=== PATIENT | female | born 1965 | race Caucasian/White ===

== ENCOUNTER 2016-11-23 11:48 | Day surgery (SDC) | payer OTHER ==
[~2016-11-23] VITALS: Ht 170.2 cm; Wt 153.1 kg
[~2016-11-23 11:48] MED LIST: BUPR150T8 PO; CARB200T PO; DULA1.5P; FURO20TA4 PO; GABA-336 PO; INSU3INS3; IOHEXOL 300 MG/ML 50ml INJECTION ONE; LEVO25TA9 PO; LIDOCAINE 1% (10mg/ml) 2ml SDV INJ ONE; LISI10TA7 PO; METF10002 PO; METO-277 PO; NORMAL SALINE 1,000 ML IV ONE; OMEP40CA52 PO
--- OUTSIDE RECORDS SUMMARY | 2016-11-23 11:54 | XMS REPORT | Continuity of Care Document ---
Author Author Chelsey Barbosa Address Unknown Phone Unavailable Care Team Providers Care [place]cherette Name Role Phone [employer] Unavailable Unavailable Problems Problem Status Onset Date Classification Date Reported Comments Source Discharge Diagnosis: Diabetes 06/18/2016 Diagnosis 2015 [facility] Discharge Diagnosis: Hypertension 06/18/2016 Diagnosis [facility] Discharge Diagnosis: Morbid obesity with BMI of 45.0-49.9, adult 06/18/2016 Diagnosis 06/19/2016 [facility] Discharge Diagnosis: Anemia 06/18/2016 Diagnosis 2015 [facility] Discharge Diagnosis: URIEL on CPAP 06/18/2016 Diagnosis 07/2016 [facility] Discharge Diagnosis: Seizure disorder due to Zinc Poisoning 06/18/2016 Diagnosis 06/19/2016 [facility] Discharge Diagnosis: Injury of right ankle and foot 06/18/2016 Diagnosis 06/19/2016 [facility] Discharge Diagnosis: Pain in joint involving right ankle and foot 06/18/2016 Diagnosis 06/19/2016 [facility] Discharge Diagnosis: Pap smear of cervix with ASCUS, cannot exclude HGSIL 06/17/2016 Diagnosis 06/18/2016 [facility] Essential hypertension (disorder) 05/13/2016 Diagnosis [facility] Diabetes mellitus type 2 (disorder) 05/13/2016 Diagnosis 05/14/2016 [facility] Morbid obesity (disorder) Diagnosis 05/14/2016 [facility] Epilepsy (disorder) 2015 Diagnosis 05/14/2016 [facility] Fatigue (finding) 2015 Diagnosis 05/14/2016 [facility] Acute laryngitis (disorder) 04/14/2016 Diagnosis 2015 [facility] Acute pharyngitis (disorder) 04/14/2016 Diagnosis 2015 [facility] Acute sinusitis (disorder) 04/14/2016 Diagnosis 2015 [facility] Cough (finding) 04/14/2016 Diagnosis 04/15/2016 [facility] Well woman monitoring status (finding) 03/23/2016 Diagnosis 03/24/2016 [facility] Malignant tumor of vagina (disorder) 03/23/2016 Diagnosis 03/24/2016 [facility] Breast neoplasm screening status (finding) 03/23/2016 Diagnosis 03/24/2016 [facility] Vitamin D deficiency (disorder) 02/25/2016 Diagnosis [facility] Hypothyroidism (disorder) Diagnosis 02/26/2016 [facility] Obesity (disorder) 2015 Diagnosis 02/26/2016 [facility] Chronic ulcer of foot (disorder) 02/16/2016 Diagnosis 07/2016 [facility] Discharge Diagnosis: Diabetic foot ulcers 12/29/2015 Diagnosis 12/30/2015 [facility] Discharge Diagnosis: Non-pressure chronic ulcer of left heel and midfoot with fat layer exposed 12/29/2015 Diagnosis 12/30/2015 [facility] Discharge Diagnosis: Non-pressure chronic ulcer of other part of left foot with fat layer exposed 2015 Diagnosis 12/30/2015 [facility] Discharge Diagnosis: Xerosis of skin 12/29/2015 Diagnosis 12/30/2015 [facility] Discharge Diagnosis: Vitamin D deficiency 12/26/2015 Diagnosis 12/27/2015 [facility] Discharge Diagnosis: Hypermenorrhea 12/26/2015 Diagnosis 12/27/2015 [facility] Discharge Diagnosis: Hypoglycemia episodes 12/22/2015 Diagnosis 12/23/2015 [facility] Discharge Diagnosis: Non-pressure chronic ulcer of left ankle with fat layer exposed 12/22/2015 Diagnosis 12/23/2015 [facility] Discharge Diagnosis: Non-pressure chronic ulcer of right heel and midfoot with fat layer exposed 12/09/2015 Diagnosis 12/26/2015 [facility] Discharge Diagnosis: Hypothyroidism 11/24/2015 Diagnosis 12/23/2015 [facility] Discharge Diagnosis: Pressure sore, on both feet 11/24/2015 Diagnosis 12/23/2015 [facility] Discharge Diagnosis: Neuropathy 11/24/2015 Diagnosis [facility] Discharge Diagnosis: Obesity 11/24/2015 Diagnosis 2015 [facility] Discharge Diagnosis: Hypertriglyceridemia 11/24/2015 Diagnosis 12/23/2015 [facility] Discharge Diagnosis: Pre-ulcerative calluses 11/24/2015 Diagnosis 12/23/2015 [facility] Discharge Diagnosis: Open wound of foot, both 11/24/2015 Diagnosis 12/23/2015 [facility] Discharge Diagnosis: Apnea, sleep 11/24/2015 Diagnosis [facility] Diabetes mellitus (disorder) Active Problem 06/19/2016 [facility] Diabetic foot ulcer (disorder) Active Problem 06/19/2016 [facility], [facility] Hypertensive disorder, systemic arterial (disorder) Active Problem 06/19/2016 [facility], [facility] Hypothyroidism (disorder) Active Problem 06/19/2016 [facility], [facility] Menorrhagia (finding) Active Problem 06/19/2016 [facility], [facility] Morbid obesity (disorder) Active Problem 06/19/2016 [facility], [facility] Neuropathy (disorder) Active Problem 06/19/2016 [facility], [facility] Obstructive sleep apnea syndrome (disorder) Active Problem 06/19/2016 [facility], [facility] Seizure disorder (disorder) Active Problem 06/19/2016 [facility], [facility] Vitamin D deficiency (disorder) Active Problem 2015 [facility], [facility] Fatigue (finding) Active Problem 06/19/2016 [facility] Discharge Diagnosis: Chronic ulcer of left foot Diagnosis 12/26/2015 [facility] Medications Medication Details Route Status Patient Instructions Ordering Provider Order Date Source levothyroxine 25 mcg (0.025 mg) oral tablet </br>1 Tab, Q24H, PO, 30 Tab, 6 Number of Refills, 6, Route to Pharmacy Electronically, [facility], [id number], TAB Active [facility] Lancets </br>Lancets, See Instructions, 100 EA, Used to test blood glucose QID, 6 Number of Refills, 6, Route to Pharmacy Electronically, [facility], Instructions Replace Required Details, [id number] Active [facility] ferrous sulfate 325 mg (65 mg elemental iron) oral tablet </br>1 Tab, BID, PO, 60 Tab, 0 Number of Refills, 0, Route to Pharmacy Electronically, [facility], [id number] Active [facility] Vitamin D2 50,000 intl units oral capsule </br>1 Cap, 2x per Wk, PO, 8 Cap, 2 Number of Refills, 2, Route to Pharmacy Electronically, [facility], [id number] Active [facility] Lantus Claireostar Pen </br>SQ, Maintenance, 11/24/15 14:35:43 CDT, 0 Number of Refills Active [facility] Humalog KwikPen </br>20 units, QPM, SQ, 0 Number of Refills Active [facility] aAccu check strips </br>aAccu check strips, See Instructions, 100 EA, Used to check blood glucose QID, 6 Number of Refills, 6, Route to Pharmacy Electronically, [facility] , Instructions Replace Required Details, [id number] Active [facility] Carbamazepine 200 MG Oral Tablet </br>1 Tab, TID, PO, 90 Tab, 3 Number of Refills, 3, Route to Pharmacy Electronically, [facility], [id number], TAB Active [facility] Regranex </br>1.25 in, Q24H, TOP, Maintenance, 02/25/16 13:36:55 CDT, 0 Number of Refills Active [facility] COLLAGENASE 0.25 UNT/MG Topical Ointment [Santyl] </br>1 Apply, Q24H, TOP, Maintenance, 12/22/15 10:40:59 CDT, 0 Number of Refills Active [facility] Metoprolol Tartrate 100 MG Oral Tablet </br>1 Tab, BID, PO, 60 Tab, 0 Number of Refills, TAB Active [facility] metformin 1000 mg oral tablet </br>1 Tab, BID, PO, 60 Tab, with meals, 6 Number of Refills, 6, Route to Pharmacy Electronically, [facility], [id number] , TAB Active [facility] lisinopril 10 mg oral tablet </br>1 Tab, daily, PO, 30 Tab, 6 Number of Refills, 6, Route to Pharmacy Electronically, [facility], [id number], TAB Active [facility] 3 ML Insulin Glargine 100 UNT/ML Prefilled Syringe [Lantus] </br>40 unit, AT BEDTIME, SQ, 10 mL, 3 Number of Refills, 3, Route to Pharmacy Electronically, [facility], [id number], CLAIRE Active [facility] 200 ACTUAT Albuterol 0.09 MG/ACTUAT Metered Dose Inhaler [ProAir HFA] </br>2 Puff(s), QID, INH, 1 EA, Maintenance, 04/14/16 16:22:56 CDT, 2 Number of Refills, 2, Route to Pharmacy Electronically, [facility], [id number] Active [facility] Levofloxacin 500 MG Oral Tablet [Levaquin] </br>1 Tab, Q24H, PO, 7 Day(s), 7 Tab, 04/21/16, 0 Number of Refills, 0, Route to Pharmacy Electronically, [facility], [id number] Inactive [facility] 24 HR Metoprolol Tartrate 50 MG Extended Release Tablet </br>1 Tab, Q24H, PO, 30 Tab, 3 Number of Refills, 3, Route to Pharmacy Electronically, [facility], [id number] Active [facility] Mupirocin 20 MG/ML Topical Cream </br>1 Apply, BID, TOP, 30 gm, 12/26/15, Acute, Apply a thin film to sores, 15:53:39 CDT, 1 Number of Refills, 1, Print Requisition, CRM
</br> Special Instructions: Apply a thin film to sores Inactive [facility] 0.5 ML dulaglutide 1.5 MG/ML Prefilled Syringe [Trulicity] </br>0.75 mg, qWeek, SQ, 4 EA, 1 Number of Refills, 1, Route to Pharmacy Electronically, [facility], [id number] Active [facility] 0.5 ML dulaglutide 3 MG/ML Prefilled Syringe [Trulicity] </br>1.5 mg, qWeek, SQ, 4 Amp, 6 Number of Refills, 6, Route to Pharmacy Electronically, [facility], [id number] Active [facility] Acetaminophen 325 MG / Hydrocodone Bitartrate 5 MG Oral Tablet [Lortab] </br>1 Tab, TID, PO, 20 Tab, 07/19/16, Acute, 06/18/16 12:11:03 DIRECTOR ZONE, 0 Number of Refills, 0, Print Requisition Inactive [facility] Allergies, Adverse Reactions, Alerts Substance Category Reaction Severity Reaction type Status Date Reported Comments Source Erythromycin Assertion Severe Drug allergy Rash, swelling of mouth [facility] Penicillin G Assertion Severe Drug allergy [facility] Immunizations Immunization Date Given Site Status Last Updated Comments Source No data available for this section No data available for this section [facility] Results Order Name Results Value Reference Range Date Interpretation Comments Source Office/Clinic Notes Office/Clinic Notes [facility] at [address] [address] PATIENT: JUAN DIEGO SHI MR #: [id number] : 1965 DATE SEEN: 06/18/2016 Chief Complaint Juan Diego is here for a 1 month follow up. History of Present Illness Ms. Shi is here in our office for a followup on her diabetes and hypertension. She also has severe obesity and sleep apnea. The patient continues to use her CPAP and is also stating that her blood glucose has been running in normal range, between 70 to 110. She did not have any hypoglycemic episode. She is also complaining of some pain and discomfort in her right foot and ankle. The patient states that she had an episode of seizures about 2 days ago and in the process, injured her right ankle and foot. It has been painful and swollen since then. She did not have any other injury. Denies any other complaints. We have started her on Trulicity, that she has been taking 0.75 mg once a week. Tolerated the medication well. She denies any nausea or vomiting. Denies any reaction to that. She states that she has discontinued her Humalog altogether and has been using Lantus insulin only. Pain Assessment Cognitive Status: Independent, decisions consistent/reasonable Intensity: 10 Location: Lower leg Laterality: Right Review of Systems Per the past medical history and history of present illness. Other systems were reviewed and they were otherwise negative. Allergies erythromycin penicillin Current Medications aAccu check strips (Miscellaneous Medication), Used to check blood glucose QID carbamazepine 200 mg oral tablet (carbamazepine), 200 mg, Oral, 3 times a day ferrous sulfate 325 mg (65 mg elemental iron) oral tablet (ferrous sulfate), 325 mg, Oral, 2 times a day Humalog KwikPen (insulin lispro), 20 units, Subcutaneous, Every evening Lancets (Miscellaneous Medication), Used to test blood glucose QID Lantus Solostar Pen 100 units/mL subcutaneous solution (insulin glargine), 60 unit, Subcutaneous, At bedtime levothyroxine 25 mcg (0.025 mg) oral tablet (levothyroxine), 25 mcg, Oral, Every 24 hours lisinopril 10 mg oral tablet (lisinopril), 10 mg, Oral, Daily metformin 1000 mg oral tablet (metformin), 1,000 mg, Oral, 2 times a day metoprolol succinate 50 mg oral tablet, extended release (metoprolol), 50 mg, Oral, Every 24 hours ProAir HFA 90 mcg/inh inhalation aerosol with adapter (albuterol), 2 Puff(s), Inhalation, 4 times a day Trulicity Pen 0.75 mg/0.5 mL subcutaneous solution (dulaglutide), 0.75 mg, Subcutaneous, Every week Vitamin D2 50,000 intl units oral capsule (ergocalciferol), 50,000 IU, Oral, 2 times a week Problems and Past Medical History Active Diabetes Diabetic foot ulcers Fatigue Hypermenorrhea Hypertension Hypothyroidism Morbid obesity with BMI of 45.0-49.9, adult Neuropathy URIEL on CPAP Seizure disorder due to Zinc Poisoning Vitamin D deficiency Procedure History tonsilectomy at 08/08/2002. Tubal Ligation Social History Caffeine Use: Current Caffeine Type: Coffee, Soda, Tea, Energy beverages Caffeine Frequency: Daily Tobacco/Nicotine Usage: Current Smoking Status: Smokes daily Tobacco/Nicotine Type: Cigarettes Packs Per Day: 0.5 Number of Years-Tob Use: 20 Total Pack Years: 10 Recreational Drug Use: Denies Physical Examination TEMP BP Pulse RR MAP O2 Sat 36.6 132/108 78 20 116 97 Blood Pressure Location: Left arm Oxygen Therapy: Room air Weight Height BMI BSA 142.5 kg (314.16 lbs) 171 cm 48.7 kg/m2 2.6017 m2 Scale: Standing digital General: A well-developed, well-nourished female in no acute distress. Vital Signs: As recorded. HEENT: Normal conjunctivae and lids. External inspection of the ears and nose is normal. The oropharynx is within normal limits. Neck: No jugular venous distention, thyromegaly, or adenomegaly. Lungs: Clear to auscultation bilaterally. Cardiovascular: Regular rate and rhythm without murmur or gallop. Peripheral pulses are symmetrical. There is no dependent edema or pathologic varicosities. Chest: Normal. Abdomen: No masses, tenderness, or organomegaly. Her abdomen is severely obese. Lymphatic: No lymphadenopathy of neck, axillae, or groin. Musculoskeletal: No gross deformity, weakness, or tremor. The patient has some swelling and tenderness in her right ankle and proximal right foot. There is no skin break noted. No numbness or weakness. Skin: Benign. No suspicious lesions. Neurologic: Normal coordination and cortical function. Psychiatric: Normal mood and affect. Impression 1. Diabetes (E11.9). 2. Hypertension (I10). 3. URIEL on CPAP (G47.33). 4. Morbid obesity with BMI of 45.0-49.9, adult (E66.01). 5. Seizure disorder due to Zinc Poisoning (G40.909). 6. Anemia (D64.9). 7. Injury of right ankle and foot (S99.911A). 8. Pain in joint involving right ankle and foot (M25.571). Plan Medication changes this visit: New Lantus Solostar Pen 100 units/mL subcutaneous solution, 40 unit, Subcutaneous, AT BEDTIME, Quantity: 10, Refills: 3 Lortab 5/325 oral tablet, 1 Tab, Oral, TID, Quantity: 20, Refills: 0 Trulicity Pen 1.5 mg/0.5 mL subcutaneous solution, 1.5 mg, Subcutaneous, qWeek, Quantity: 4, Refills: 6 Refill carbamazepine 200 mg oral tablet, 200 mg, Oral, TID, Quantity: 90, Refills: 3 levothyroxine 25 mcg (0.025 mg) oral tablet, 25 mcg, Oral, Q24H, Quantity: 30, Refills: 6 lisinopril 10 mg oral tablet, 10 mg, Oral, daily, Quantity: 30, Refills: 6 Stopped Humalog KwikPen, 20 units, Subcutaneous, QPM, Refills: 0 Lantus Solostar Pen 100 units/mL subcutaneous solution, 60 unit, Subcutaneous, AT BEDTIME, Quantity: 18, Refills: 3 Trulicity Pen 0.75 mg/0.5 mL subcutaneous solution, 0.75 mg, Subcutaneous, qWeek , Quantity: 4, Refills: 1 Vitamin D2 50,000 intl units oral capsule, 50,000 IU, Oral, 2x per Wk, Quantity : 8, Refills: 2 ferrous sulfate 325 mg (65 mg elemental iron) oral tablet, 325 mg, Oral, BID, Quantity: 60, Refills: 0 Orders this visit: Follow Up 6 Weeks -Request DX Ankle Right 3 View complete- Request DX Foot Right 2 View Ap and Lat- Request Future Orders: CBC with Diff - 07/02/16 08:00 Carbamazapine Level - 06/25/16 08:00 HgbA1C - 07/02/16 08:00 In regard to her diabetes, which is better controlled, we did increase her Trulicity to 1.5 mg a week. She was advised to decrease her Lantus insulin to 20 units daily. Continue metformin as before. She was also advised to follow a more strict diet and try to lose weight on a low-calorie diet and increased physical activity. Regarding her hypertension, which is under adequate control. She was advised to continue current medication. Regarding her sleep apnea, she will continue her CPAP as before. In regard to her seizure, the patient has been on carbamazepine 200 mg t.i.d. We did order a carbamazepine level to be checked and we will adjust the dose if need to. Regarding her anemia, I did order a CBC to be checked before next visit. Regarding her injury to her right ankle and foot, I did order an x-ray of the right foot and right ankle to be done. We will make further recommendation when the report is available. She was given pain medication to take as needed for that. TR: GRANT JORGE#: [id number] [Electronically Signed on 06.23.2016 11:23 AM]
Katelyn Kyle MD
</br> 06/18/2016 [Electronically Signed on 06.23.2016 11:23 AM] Katelyn Kyle MD [facility] Office/Clinic Notes Office/Clinic Notes [facility] at [place] [address] [address] [place] [id number] PATIENT: JUAN DIEGO SHI MR #: [id number] : 1965 DATE SEEN: 06/17/2016 Chief Complaint Patient is here for a colposcopy procedure. History of Present Illness Patient is a 50-year-old female who I have seen today for colposcopy procedure. She had a Pap smear that was ASCUS, cannot exclude high grade. She states that she has been getting regular Pap smears. Allergies erythromycin penicillin Current Medications aAccu check strips (Miscellaneous Medication), Used to check blood glucose QID carbamazepine 200 mg oral tablet (carbamazepine), 200 mg, Oral, 3 times a day ferrous sulfate 325 mg (65 mg elemental iron) oral tablet (ferrous sulfate), 325 mg, Oral, 2 times a day Humalog KwikPen (insulin lispro), 20 units, Subcutaneous, Every evening Lancets (Miscellaneous Medication), Used to test blood glucose QID Lantus Solostar Pen 100 units/mL subcutaneous solution (insulin glargine), 60 unit, Subcutaneous, At bedtime levothyroxine 25 mcg (0.025 mg) oral tablet (levothyroxine), 25 mcg, Oral, Every 24 hours lisinopril 10 mg oral tablet (lisinopril), 10 mg, Oral, Daily metformin 1000 mg oral tablet (metformin), 1,000 mg, Oral, 2 times a day metoprolol succinate 50 mg oral tablet, extended release (metoprolol), 50 mg, Oral, Every 24 hours ProAir HFA 90 mcg/inh inhalation aerosol with adapter (albuterol), 2 Puff(s), Inhalation, 4 times a day Trulicity Pen 0.75 mg/0.5 mL subcutaneous solution (dulaglutide), 0.75 mg, Subcutaneous, Every week Vitamin D2 50,000 intl units oral capsule (ergocalciferol), 50,000 IU, Oral, 2 times a week Problems and Past Medical History Active Diabetes Diabetic foot ulcers Fatigue Hypermenorrhea Hypertension Hypothyroidism Morbid obesity with BMI of 45.0-49.9, adult Neuropathy URIEL on CPAP Seizure disorder due to Zinc Poisoning Vitamin D deficiency Procedure History tonsilectomy at 08/08/2002. Tubal Ligation Physical Examination TEMP BP Pulse RR MAP O2 Sat 36.8 132/84 87 20 100 Blood Pressure Location: Left arm Weight Height BMI BSA 140.2 kg (309.09 lbs) 171 cm 47.9 kg/m2 2.5806 m2 General: Well-developed, well-nourished female in no apparent distress. Psych: Alert and awake. Mood is good. Genitourinary: External genitalia appear normal for a female this age. Urethra and bladder visibly normal. No abnormal vaginal discharge. Cervix does not appear normal, very difficult to see. Cannot see the complete cervix as it is high in the vaginal vault. Even with a large Graves speculum, difficult to visualize. It looks like there was possibly a lesion on the anterior lip of the cervix. An attempt was made to complete colposcopy, but again, it was fairly inadequate. Biopsy of this area on the cervix was taken x2. Impression 1. Pap smear of cervix with ASCUS, cannot exclude HGSIL (R87.611). Plan Orders this visit: Colposcopy of Cervix w/ Endocervical Curettage -Clinic Urine Test-Clinic Will see what her biopsy results are. Then may need to either do re-colposcopy in the OR or possibly LEEP or, if it is cancer, referral to [facility]. TR: [id number] JORGE#: [id number] [Electronically Signed on 06.22.2016 09:07 PM]
Johnny Ramos DO
</br> 06/17/2016 [Electronically Signed on 06.22.2016 09:07 PM] Johnny Ramos DO [facility] Procedure Reports Procedure Reports Patient: JUAN DIEGO SHI Age: 50 years Sex: Female : 1965 Associated Diagnoses: None Author: Johnny Ramos DO Procedure Urine test Negative. Performed by Johnny Ramos DO. Informed consent Signed by patient. Risks, benefits and alternatives discussed. I discussed the procedure and risks of the procedure, including but not limited to pain, bleeding, infection, injury to soft tissue such as uterus and cervix need for further procedure, the patient was given the opportunity to have questions and concerns answered best of my ability and was agreeable to proceed with the procedure. Colposcopy procedure Indication: Atypical Squamous Cell-can not exclude high-grade dysplasia. Preparation and technique: placed in lithotomy position, vaginal speculum inserted, cervix inspected, cervix swabbed with acetic acid solution, colposcopy was carried out of the cervix and the upper portion of the vagina acetowhite changes and other vascular changes or or lack thereof were noted, please see the diagram, exam was difficult even with longer speculum, could not visualize the cervix entirely as it was high in the vaginal vault, but could see an area on the anterior lip of the cervix that could represent a cervical lesion - biopsy x 2 taken across this area, squamocolumnar junction fully visible, no lesion(s) observed, cervical biopsy taken, ECC performed biopsy taken, hemostasis achieved with Monsel's solution. Procedure tolerated: well. Complications: none. . pathology: Ectocervical biopy x2 of cervical lesion? and ECC. Inadequate visualization of the complete cervix, very difficult to visualize in the office even with large speculum. [Electronically Signed on 06.17.2016 12:16 PM]
Johnny Ramos, DO
</br> 06/17/2016 [Electronically Signed on 06.17.2016 12:16 PM] Johnny Ramos, [facility] Surgical Pathology Report Surgical Pathology Report [facility] [address] [place] [address] NAME: JUAN DIEGO SHI ADMIT 06/17/2016 DATE: DISCHARGE DATE: 06/17/2016 ENC: [id number] ORDER PHYS: Johnny Ramos DO : 1965AGE: 51 years SEX:Female ATTEND Johnny Ramos DO PHYS: LOCATION: [facility] Pathology Reports ACCESSION: COLLECTED DATE/TIME: RECEIVED DATE/TIME: PATHOLOGIST: [id number] 06/17/2016 10:00 DIRECTOR ZONE 06/18/2016 09:39 DIRECTOR ZONE Seth Gomez MD Surgical Pathology Report - Auth (Verified) Clinical Information Clinical History: ASCUS cannot exclude high grade Specimen/Tissue: A Cervical biopsy; Cervix 12:00 B Endocervix, Curettings/Biopsy; ECC Diagnosis A: Uterus, cervix at 12:00, biopsy: - AT LEAST HIGH GRADE SQUAMOUS INTRAEPITHELIAL LESION (ANA III). - See comment. B: Endocervical curettings: - HIGH GRADE SQUAMOUS INTRAEPITHELIAL LESION (ANA III). COMMENT: The cervical biopsy demonstrates extensive involvement by a high grade squamous dysplastic lesion (severe dysplasia/CIS) which in some areas demonstrates an exophytic morphology. Foci are concerning for invasion. Discussed with NIKOS Segovia, on 06/21/16. Seth Gomez(Electronic signature) Verified:06.21.16 15:19 DJS /RJS Gross Description A: The specimen is received in formalin labeled with the patient 's name and "CX bx 12:00 ". The specimen consists of multiple irregular shape domingo soft tissue aggregating to 1.0 x 1.0 x 0.2 cm. Completely submitted as is in cassette A1. B: The specimen is received in formalin labeled with the patient 's name and "ECC ". The specimen consists of multiple irregular shape yij-kxe-epimx soft tissue aggregating to 1.5 x 1.0 x 0.2 cm. Completely submitted as is in cassette B1. [facility]/VN Professional and technical services performed by [facility] d/b/a [employer] at [address] [address]. /VN 06.18.2016 11:12 NAME: JUAN DIEGO SHI [facility] [id number] ID: ENC: [id number] ROOM: 06/17/2016 [employer] CHEM12 eGFR () >60 mL/min >=60 2015 N Estimated GFR for an calculated using MDRD study equation. Result Verified by Discern Expert.
[employer] CHEM12 Albumin Level 3.5 gm/ dL 3.4 - 5.0 05/13/2016 N [employer] A1C eAverage Glu 123 05/13/2016 NA Estimated average glucose has a linear relationship with Hgb A1c and is intended to simplify the discussion of glycemic control with patients.
[facility] Office/Clinic Notes Office/Clinic Notes [facility] at [facility] [address] [place] [address] [id number] PATIENT: JUAN DIEGO SHI MR #: [id number] : 1965 DATE SEEN: 05/13/2016 Chief Complaint Juan Diego is here for a 3 month follow up. History of Present Illness Ms. Shi is here in our office for followup on multiple medical problems, including diabetes, hypertension, obstructive sleep apnea. She also had some foot ulcers on previous visit, but those now have healed. She has no complaint in that regard. The patient states that she is feeling tired a lot. She has sleep apnea, but has been using her CPAP regularly. She has diabetes and has been using insulin as directed. She denies any hypoglycemic episode. She did not have a recent hemoglobin A1c checked. The patient, otherwise, has no new complaints. Pain Assessment Cognitive Status: Independent, decisions consistent/reasonable Intensity: 9 Location: Other: Pain in all joints. Review of Systems Per the past medical history and history of present illness. Other systems were reviewed and they were otherwise negative. Allergies erythromycin penicillin Current Medications aAccu check strips (Miscellaneous Medication), Used to check blood glucose QID carbamazepine 200 mg oral tablet (carbamazepine), 200 mg, Oral, 3 times a day ferrous sulfate 325 mg (65 mg elemental iron) oral tablet (ferrous sulfate), 325 mg, Oral, 2 times a day Humalog KwikPen (insulin lispro), 20 units, Subcutaneous, Every evening Lancets (Miscellaneous Medication), Used to test blood glucose QID Lantus Solostar Pen 100 units/mL subcutaneous solution (insulin glargine), 60 unit, Subcutaneous, At bedtime levothyroxine 25 mcg (0.025 mg) oral tablet (levothyroxine), 25 mcg, Oral, Every 24 hours lisinopril 10 mg oral tablet (lisinopril), 10 mg, Oral, Daily metformin 1000 mg oral tablet (metformin), 1,000 mg, Oral, 2 times a day metoprolol tartrate 100 mg oral tablet (metoprolol), 100 mg, Oral, 2 times a day ProAir HFA 90 mcg/inh inhalation aerosol with adapter (albuterol), 2 Puff(s), Inhalation, 4 times a day Regranex (becaplermin topical), 1.25 in, Topical, Every 24 hours Santyl 250 units/g topical ointment (collagenase topical), 1 Apply, Topical, Every 24 hours Vitamin D2 50,000 intl units oral capsule (ergocalciferol), 50,000 IU, Oral, 2 times a week Problems and Past Medical History Active Diabetes Diabetic foot ulcers Fatigue Hypermenorrhea Hypertension Hypothyroidism Morbid obesity with BMI of 45.0-49.9, adult Neuropathy URIEL on CPAP Seizure disorder due to Zinc Poisoning Vitamin D deficiency Procedure History tonsillectomy at 08/08/2002. Tubal Ligation Social History Caffeine Use: Current Caffeine Type: Coffee, Soda, Tea, Energy beverages Caffeine Frequency: Daily Tobacco/Nicotine Usage: Current Smoking Status: Smokes daily Tobacco/Nicotine Type: Cigarettes Packs Per Day: 0.5 Number of Years-Tob Use: 20 Total Pack Years: 10 Recreational Drug Use: Denies Physical Examination TEMP BP Pulse RR MAP O2 Sat 36.5 138/92 71 18 107.33 94 Blood Pressure Location: Left arm Oxygen Therapy: Room air Weight Height BMI BSA 141.7 kg (312.40 lbs) 171 cm 48.5 kg/m2 2.5944 m2 Scale: Standing digital General: A well-developed, well-nourished female in no acute distress. Vital Signs: As recorded. HEENT: Normal conjunctivae and lids. External inspection of the ears and nose is normal. The oropharynx is within normal limits. Neck: No jugular venous distention, thyromegaly, or adenomegaly. Lungs: Clear to auscultation bilaterally. Cardiovascular: Regular rate and rhythm without murmur or gallop. Peripheral pulses are symmetrical. There is no dependent edema or pathologic varicosities. Chest: Normal. Abdomen: No masses, tenderness, or organomegaly. Her abdomen is obese. Lymphatic: No lymphadenopathy of neck, axillae, or groin. Musculoskeletal: No gross deformity, weakness, or tremor. Skin: Benign. No suspicious lesions. Neurologic: Normal coordination and cortical function. Psychiatric: Normal mood and affect. Data Review Her laboratory studies were reviewed. Impression 1. Diabetes (E11.9). 2. Hypertension (I10). 3. Morbid obesity with BMI of 45.0-49.9, adult (E66.01). 4. Seizure disorder due to Zinc Poisoning (G40.909). 5. Fatigue (R53.83). Plan Medication changes this visit: New metoprolol succinate 50 mg oral tablet, extended release, 50 mg, Oral, Q24H, Quantity: 30, Refills: 3 Refill metformin 1000 mg oral tablet, 1,000 mg, Oral, BID, Quantity: 60, Refills: 6 Stopped Regranex, 1.25 in, Topical, Q24H, Refills: 0 Santyl 250 units/g topical ointment, 1 Apply, Topical, Q24H, Refills: 0 metoprolol tartrate 100 mg oral tablet, 100 mg, Oral, BID, Quantity: 60, Refills : 6 Orders this visit: CHEM12 ([facility]) HgbA1C Follow Up 1 Month -Request In regard to her diabetes, the status of her diabetes control is not known. We are going to check a hemoglobin A1c today. The patient has severe obesity with a BMI of 48. We had a discussion with her regarding weight loss and dieting. She is having trouble with diet because of hypoglycemic episodes on insulin. We did discuss other medication. It was decided to check an A1c today. If her hemoglobin A1c is less than 7, we are going to decrease her Lantus and start her on Trulicity to help her lose weight and have a better diabetes control. So , we will make that decision after her A1c report is available. In regard to seizure disorder, the patient is taking medication as directed and did not have any recent episode. Regarding her fatigue, I think this could be related to beta-rosanne. We are going to decrease her metoprolol to 50 mg twice daily. TR: GRANT JORGE#: [id number] [Electronically Signed on 05.14.2016 11:55 AM]
Katelyn Kyle MD
</br> 05/13/2016 [Electronically Signed on 05.14.2016 11:55 AM] Katelyn Kyle MD [facility] Office/Clinic Notes Office/Clinic Notes [facility] at [address] [address] PATIENT: JUAN DIEGO SHI MR #: [id number] : 1965 DATE SEEN: 04/14/2016 Chief Complaint Juan Diego is here for headache, sinus drainage and coughing, and low grade fever. History of Present Illness Juan Diego is here today with complaints of a head cold. She reports, about last Tuesday, she began having headaches, sinus drainage, cough, a low-grade fever. She has had clear to yellow drainage coming out of her nose. The drainage is down her throat causing hoarseness and a sore throat, causing her to cough, and this is not allowing her to sleep at night. She has also noted a headache, sinus pressure, and pain. She reports she has had a tender spot inside her nose and has noted a stye on her left lower eyelid. She reports feeling pretty miserable. Juan Diego is here today for further evaluation and treatment of her symptoms, and requesting a steroid shot due to her harsh, deep cough, and reports a history of pneumonia. She does not want her symptoms to get worse. Juan Diego also reports that her medical insurance only paid for 1 box of Lantus Solostar Pens. She is going to run out and will need a refill of her Lantus. Juan Diego is also asking for a ProAir MDI for her symptoms today. Review of Systems Usual Hours of Sleep: 4 Per past medical history, history of present illness, other systems were reviewed and they were otherwise negative. Allergies erythromycin penicillin Current Medications aAccu check strips (Miscellaneous Medication), Used to check blood glucose QID carbamazepine 200 mg oral tablet (carbamazepine), 200 mg, Oral, 3 times a day ferrous sulfate 325 mg (65 mg elemental iron) oral tablet (ferrous sulfate), 325 mg, Oral, 2 times a day Humalog KwikPen (insulin lispro), 20 units, Subcutaneous, Every evening Lancets (Miscellaneous Medication), Used to test blood glucose QID Lantus Solostar Pen 100 units/mL subcutaneous solution (insulin glargine), 60 unit, Subcutaneous, At bedtime levothyroxine 25 mcg (0.025 mg) oral tablet (levothyroxine), 25 mcg, Oral, Every 24 hours lisinopril 10 mg oral tablet (lisinopril), 10 mg, Oral, Daily metformin 1000 mg oral tablet (metformin), 1,000 mg, Oral, 2 times a day metoprolol tartrate 100 mg oral tablet (metoprolol), 100 mg, Oral, 2 times a day Regranex (becaplermin topical), 1.25 in, Topical, Every 24 hours Santyl 250 units/g topical ointment (collagenase topical), 1 Apply, Topical, Every 24 hours Vitamin D2 50,000 intl units oral capsule (ergocalciferol), 50,000 IU, Oral, 2 times a week Problems and Past Medical History Active Diabetes Diabetic foot ulcers Hypermenorrhea Hypertension Hypothyroidism Morbid obesity with BMI of 45.0-49.9, adult Neuropathy URIEL on CPAP Seizure disorder due to Zinc Poisoning Vitamin D deficiency Procedure History tonsillectomy at 08/08/2002. Tubal Ligation Social History Caffeine Use: Current Caffeine Type: Coffee, Soda, Tea, Energy beverages Caffeine Frequency: Daily Tobacco/Nicotine Usage: Current Smoking Status: Smokes daily Tobacco/Nicotine Type: Cigarettes Packs Per Day: 0.5 Number of Years-Tob Use: 20 Total Pack Years: 10 Recreational Drug Use: Denies Physical Examination TEMP BP Pulse RR MAP O2 Sat 36.6 133/87 92 20 102.33 95 Blood Pressure Location: Left arm Oxygen Therapy: Room air Weight Height BMI BSA 135.4 kg (298.51 lbs) 171 cm 46.3 kg/m2 2.536 m2 General: She is alert, oriented, appears fatigued, but in no acute distress. Ears: Tympanic membranes are dull bilaterally. Canals are clear. Eyes: PERRLA. EOMI. No icterus. No injection. An erythemic stye noted on the inner aspect of the left lower eyelid with no drainage noted from the eyes. Sinus: Tenderness of maxillary sinuses noted Mouth: Moist mucous membranes. Moderate inflammation of the posterior pharynx and a cloudy postnasal drainage noted. Neck: Soft and supple. Enlarged, nontender tonsillar nodes bilaterally. Heart: Regular rate and rhythm without murmur. Lungs: Diminished breath sounds with faint, diffuse expiratory wheezing noted. A harsh, deep bronchial cough noted, but no respiratory distress present. Extremities: No clubbing, cyanosis, or edema. Pulses 2+ and equal. SKin: pink, warm, and dry Impression 1. Acute laryngitis (J04.0). 2. Acute pharyngitis (J02.9). 3. Acute sinusitis (J01.90). 4. Cough (R05). 5. Diabetes Plan Medication changes this visit: New Levaquin 500 mg oral tablet, 500 mg, Oral, Q24H, 7 Day(s), Quantity: 7, Refills : 0 ProAir HFA 90 mcg/inh inhalation aerosol with adapter, 2 Puff(s), Inhalation, QID, Quantity: 1, Refills: 2 Orders this visit: dexamethasone, 8 mg, Intramuscular, X 1 DOSE 1. Regarding acute laryngitis, acute pharyngitis, acute sinusitis, Juan Diego will begin Levaquin 500 mg 1 tab daily until gone and Decadron 8 mg IM was administered today. 2. Regarding Cough, Juan Diego will begin ProAir MDI 2 puffs 4 times a day as needed. 3. Regarding diabetes, I will refill the Lantus insulin today. Juan Diego was instructed to call her insurance company regarding her coverage of the Lantus Solostar Pen. 4. Juan Diego was instructed to follow up with any acute changes, no improvement, or any questions or concerns. She verbalized understanding and was in agreement with the plan of care. TR: GRANT JORGE#: [id number] [Electronically Signed on 04.15.2016 01:46 PM]
Sabina Spence APRN
</br> 04/14/2016 [Electronically Signed on 04.15.2016 01:46 PM] Sabina Spence APRN [facility] PAP(Thin Prep) - Clinic Result - PAP See Comment 2015 ABN THINPREP TIS PAP REFLEX HPV mRNA E6/E7
Lab:
CLINICAL INFORMATION: Routine exam
LMP: 03/21/16
prev. Pap: INFORMATION NOT PROVIDED
prev. Bx: INFORMATION NOT PROVIDED
SOURCE: Vagina, Cervix, Endocervix

STATEMENT OF ADEQUACY: Satisfactory for evaluation.
Endocervical/transformation zone component
present.< br>GENERAL CATEGORIZATION: EPITHELIAL CELL ABNORMALITY
INTERPRETATION/RESULT : Atypical Squamous Cells, cannot exclude High
Grade Squamous Intraepithelial Lesion (ASC-H)
COMMENT: This Pap test has been evaluated with computer
assisted technology.
SUPERVISOR TILE AND MOTTLE: CATY NG(ASCP)
CT screening location: [facility]
[address] [place]
[address]
PATHOLOGIST: Ranjith Flaherty M.D., Board Certified in
Anatomic Pathology and Cytopathology.

(electronic signature)
For questions contact Anatomic Pathology Client Services at [phone]
PERFORMING SITE:

[facility]
[id number]
[place] [address]
Consulting Sales Executive: PER THACKER MD, CLIA : [id number]
[facility] Office/Clinic Notes Office/Clinic Notes [facility] at [address] [address] PATIENT: JUAN DIEGO SHI MR #: [id number] : 1965 DATE SEEN: 03/23/2016 Chief Complaint Juan Diego is here for Pap. History of Present Illness Juan Diego is here for a well-woman exam. She reports her last Pap was about 2 years ago and was normal. She does report having an abnormal Pap about 26 years ago. control is a tubal ligation. Her last menstrual period was March 21, 2016. She reports her menstrual cycle tends to be a flow heavy the first 3-4 days, is very painful with lots of cramps and increased blood clots. She does tend to bleed through her clothes. Her periods last about 6-7 days. She is a 4, para 3, miscarriage 1. She denies female issues or concerns at this time and does plan to schedule her mammogram at [facility] in the near future. Review of Systems Usual Hours of Sleep: 4 Denies fever, chills, or unexpected weight changes. Denies chest pains or palpitations. Denies shortness of breath or cough. Denies abdominal pain, nausea , vomiting, diarrhea, or constipation. Denies dysuria or frequency. Admits to heavy, crampy menstrual periods. Allergies erythromycin penicillin Current Medications Accu check strips (Miscellaneous Medication), Used to check blood glucose QID carbamazepine 200 mg oral tablet (carbamazepine), 200 mg, Oral, 3 times a day ferrous sulfate 325 mg (65 mg elemental iron) oral tablet (ferrous sulfate), 325 mg, Oral, 2 times a day Humalog KwikPen (insulin lispro), 20 units, Subcutaneous, Every evening Lancets (Miscellaneous Medication), Used to test blood glucose QID Lantus Solostar Pen (insulin glargine), , Subcutaneous levothyroxine 25 mcg (0.025 mg) oral tablet (levothyroxine), 25 mcg, Oral, Every 24 hours lisinopril 10 mg oral tablet (lisinopril), 10 mg, Oral, Daily metformin 1000 mg oral tablet (metformin), 1,000 mg, Oral, 2 times a day metoprolol tartrate 100 mg oral tablet (metoprolol), 100 mg, Oral, 2 times a day Regranex (becaplermin topical), 1.25 in, Topical, Every 24 hours Santyl 250 units/g topical ointment (collagenase topical), 1 Apply, Topical, Every 24 hours Vitamin D2 50,000 intl units oral capsule (ergocalciferol), 50,000 IU, Oral, 2 times a week Problems and Past Medical History Active Diabetes Diabetic foot ulcers Hypermenorrhea Hypertension Hypothyroidism Morbid obesity with BMI of 45.0-49.9, adult Neuropathy URIEL on CPAP Seizure disorder due to Zinc Poisoning Vitamin D deficiency Procedure History tonsillectomy at 08/08/2002. Tubal Ligation Social History Caffeine Use: Current Caffeine Type: Coffee, Soda, Tea, Energy beverages Caffeine Frequency: Daily Tobacco/Nicotine Usage: Current Smoking Status: Smokes daily Tobacco/Nicotine Type: Cigarettes Packs Per Day: 0.5 Number of Years-Tob Use: 20 Total Pack Years: 10 Recreational Drug Use: Denies Physical Examination TEMP BP Pulse RR MAP O2 Sat 36.4 176/87 70 18 116.67 95 Blood Pressure Location: Left arm Oxygen Therapy: Room air Weight Height BMI BSA 141.4 kg (311.73 lbs) 171 cm 48.4 kg/m2 2.5916 m2 Scale: Standing digital General: Alert, oriented, and in no acute distress. Neck: Soft and supple. No lymphadenopathy. Heart: Regular rate and rhythm without murmur. Lungs: Clear to auscultation bilaterally in all lung dean. Good respiratory effort. Abdomen: No guarding or rebound. Nontender and nondistended. Positive normoactive bowel sounds. No mass or hepatosplenomegaly. No bruits heard. Truncal obesity noted. Extremities: No clubbing or cyanosis. Trace of edema bilaterally. Pulses 2+ and equal. Skin: Warm and dry with good turgor. Neurologic: Cranial nerves 2-12 intact. Psychiatric: Mood and affect appropriate. Breasts: Normally sized breasts bilaterally. No nodules palpable. No nipple discharge. No tenderness. No skin dimpling. External Genitalia: Without any lesions. Urethra: No lesions. Scant cloudy discharge noted. Vagina: [place] and moist. Cervix: No cervical motion tenderness, abnormal discharge, or mass. Uterus: Normal size. Mobile and nontender. Impression 1. Encounter for well woman exam (Z01.419). 2. Vaginal Pap smear (Z12.72). 3. Encounter for screening breast examination (Z12.39). Plan Orders this visit: PAP Reflex HPV Regarding encounter for well-woman exam to include vaginal Pap smear, Pap sent to Pathology. Ms. Sih was informed we would contact her once the results are available. Regarding encounter for screening breast exam, Ms. Shi plans to schedule her mammogram at [facility] in the near future. Ms. Shi was encouraged to schedule a routine follow up appointment with her primary care provider, Dr. Katelyn Kyle, in 1 month. She was instructed to continue all medications as prescribed. TR: [id number] JORGE#: [id number] [Electronically Signed on 03.24.2016 08:30 PM]
Sabina Spence APRN
</br> 03/23/2016 [Electronically Signed on 03.24.2016 08:30 PM] Sabina Spence APRN [facility] A1C Hgb A1c 6.0 % - <=5.6 02/26/2016 HI Hgb A1c values
<5.7% Normal
5.7- 6.4% Increased risk for diabetes (pre-diabetes)
>6.5% Diabetes
[facility] -Auto Diff Eos 2 % 02/26/2016 NA [facility] CBC with Diff Hgb 12.6 gm/dL 12.0 - 16.0 02/26/2016 N [facility] Manual Differential Morphology Aniso 1 - <=0 2015 HI [facility] FREET4 Free T4 1.06 ng/dL 0.58 - 1.64 02/26/2016 N [facility] TSH TSH 2.170 uIU/mL 0.354 - 5.720 02/26/2016 N [facility] Office/Clinic Notes Office/Clinic Notes [facility] at [address] [address] PATIENT: JUAN DIEGO SHI MR #: [id number] : 1965 DATE SEEN: 02/25/2016 Chief Complaint Juan Diego is here for a recheck. History of Present Illness A 50-year-old patient presents to the clinic for followup. She has been seen by this physician back on November 24, 2015. She had been seen by Dr. Katelyn Kyle on December 26, 2015. Last saw Dr. Beth Domingo on February 16, 2016, for debridement and treatment of her ulcerative foot. Her foot is doing much better and it continues to gradually improve. Her blood sugar is doing less well than her foot. She was supposed to have lab drawn on February 21, 2016. Since it did not happen it will happen today with TSH, free T4, vitamin D, hemoglobin A1c, and a CBC with differential. She is still on her medications as noted. Medication reconciliation was completed. Review of Systems Usual Hours of Sleep: 4 Pertinent negative for the following system(s): Constitutional, HEENT, Respiratory, Cardiovascular, GI, , LINING MACHINE OPERATOR, Integumentary, Musculoskeletal, Neurological, Hematologic, Endocrine, Psychiatric Allergies erythromycin penicillin Current Medications aAccu check strips (Miscellaneous Medication), Used to check blood glucose QID carbamazepine 200 mg oral tablet (carbamazepine), 200 mg, Oral, 3 times a day ferrous sulfate 325 mg (65 mg elemental iron) oral tablet (ferrous sulfate), 325 mg, Oral, 2 times a day Humalog KwikPen (insulin lispro), 20 units, Subcutaneous, Every evening Lancets (Miscellaneous Medication), Used to test blood glucose QID Lantus Solostar Pen (insulin glargine), , Subcutaneous levothyroxine 25 mcg (0.025 mg) oral tablet (levothyroxine), 25 mcg, Oral, Every 24 hours lisinopril 10 mg oral tablet (lisinopril), 10 mg, Oral, Daily metformin 1000 mg oral tablet (metformin), 1,000 mg, Oral, 2 times a day metoprolol tartrate 100 mg oral tablet (metoprolol), 100 mg, Oral, 2 times a day Regranex (becaplermin topical), 1.25 in, Topical, Every 24 hours Santyl 250 units/g topical ointment (collagenase topical), 1 Apply, Topical, Every 24 hours Vitamin D2 50,000 intl units oral capsule (ergocalciferol), 50,000 IU, Oral, 2 times a week Problems and Past Medical History Active Diabetes Diabetic foot ulcers Hypermenorrhea Hypertension Hypothyroidism Morbid obesity with BMI of 45.0-49.9, adult Neuropathy URIEL on CPAP Seizure disorder due to Zinc Poisoning Vitamin D deficiency Procedure History tonsilectomy at 08/08/2002. Tubal Ligation Social History Caffeine Use: Current Caffeine Type: Coffee, Soda, Tea, Energy beverages Caffeine Frequency: Daily Tobacco/Nicotine Usage: Current Smoking Status: Smokes daily Tobacco/Nicotine Type: Cigarettes Packs Per Day: 0.5 Number of Years-Tob Use: 20 Total Pack Years: 10 Recreational Drug Use: Denies Physical Examination TEMP BP Pulse RR MAP O2 Sat 36.8 170/85 91 18 113.33 93 Blood Pressure Location: Left arm Oxygen Therapy: Room air Weight Height BMI BSA 142.6 kg (314.38 lbs) 171 cm 48.8 kg/m2 2.6026 m2 Scale: Standing digital HEENT: Unremarkable. Neck: Supple. Chest: Clear. Heart: Regular rhythm. Abdomen: Protuberant. Extremities: Grossly normal. [___] on the medial posterior of her left heel. Impression 1. Hypertension (I10). 2. Diabetes (E11.9). 3. Vitamin D3 deficiency (E55.9). 4. Hypothyroidism (E03.9). 5. Exogenous Obesity (E66.9). 6. Ulcerative foot. Plan Orders this visit: CBC with Diff Free T4 HgbA1C TSH (Thyroid Stim Hormone) Vitamin D Level TR: [id number] JORGE#: [id number] [Electronically Signed on 02.27.2016 04:53 AM]
Toro Copeland MD
</br> 02/25/2016 [Electronically Signed on 02.27.2016 04:53 AM] Toro Copeland MD [facility] Office/Clinic Notes Office/Clinic Notes [facility] [address] [address] RE: JUAN DIEGO SHI MR #: [id number] : 1965 DATE SEEN: 02/16/2016 Juan Diego is a pleasant [id number] type 2 diabetic, who is uncontrolled at this time, presents today following ulcerations to her left foot. The patient is no longer wearing surgical shoe because she has seizures and she feels that she is going to break her ankle when she is wearing that sandal. The patient is wearing just regular shoes and trying to keep pressure off the area. The patient to continue using moisturizer with ammonium lactate cream to her feet twice a day for treatment of chronic dry skin. The patient's feet does look a lot better. The patient is approved for EpiFix, and she says the ulcer seems to be doing better, so she does not want to get total contact cast done today. ALLERGIES: 1. ERYTHROMYCIN. 2. PENICILLIN. Vitals: Today, blood pressure 130/74, respiration 18, pulse 79, temperature 97.9 degrees. PHYSICAL EXAMINATION: Vascular examination: Dorsalis pedis and posterior tibial pulses are palpable bilaterally. Bilateral lower extremity capillary refilling time 1 seconds x10. Neurologic examination: Protective threshold is absent via [place]-Stella 5.07-g monofilament to bilateral feet. Deep tendon reflexes are within normal limits to bilateral lower extremities. Dermatologic examination: Turgor, texture and temperature of the skin are all within normal limits. The patient does have ulceration on dorsal aspect of the fifth digit, left foot that currently measures 7 x 6 x 3 mm in depth. This ulceration does extend down to subcutaneous tissue with no edema, no erythema, no probing to bone, mostly granular tissue, mild fibrinous base, it is very close to probing to bone, but no signs of infection at this time. The patient has a second ulceration on plantar aspect of the left heel that currently measures 6 x 3 x 2 mm in depth. This ulcer is a full thickness ulceration with no edema, no erythema, no probing to bone, mostly red beefy granular tissue, mild fibrinous base. Musculoskeletal examination: Muscle power is 5/5 bilateral lower extremities. No deficits noted. ASSESSMENT: 1. Full-thickness ulceration, left heel. 2. Subcutaneous depth ulceration, fifth digit, left foot. 3. Ppy-onjlpoa-thsifzcil diabetes with neuropathy, uncontrolled. Plan and procedure: Prior to the debridement, I explained to the patient, and to any person who has consented to the procedure on the patient's behalf, the nature, the purpose, benefits, risks and alternative treatments. I have further discussed possible consequences of the procedure, the principal risks involved and possible complications. PROCEDURE: 1. The ulceration on the left foot, fifth toe first anesthetized utilizing 2% topical lidocaine. Utilizing a 15 blade, all devitalized tissue was removed through subcutaneous tissue depth and post-debridement measurement measures 8 x 7 x 3 mm depth and a dressing consisting of Betadine dry sterile dressing was then applied. 2. The ulceration on the left heel was also anesthetized utilizing 2% topical lidocaine. Utilizing a 15 blade, all devitalized tissue removed through full- thickness depth and a dressing consisting EpiFix was now applied in standard technique. It was held in place with Steri-Strips. Dressing consisting of nonadherent veil, wound gel and dry sterile dressing was then applied. PLAN: 1. The patient to keep the dressing clean, dry, and intact for the next week to the ulceration, left heel and continue to clean the fifth digit, left foot on a daily basis with antibacterial soap and water and applying Regranex with wet-to-dry dressing on a daily basis. 2. The patient was advised to try to keep pressure off her foot as much as she can. We did offer her Cam walker boot. The patient defers and we strongly recommended total contact casting to try to get this ulcer to heal up a little faster. The patient defers also. I will see her back in 1 week to see how she is doing after applying EpiFix number 1. The patient to continue using ammonium lactate cream to feet twice a day to prevent recurrence of dry skin. Dictated By: FLAVIA DOMINGO DPM DICTATED BY: Flavia Domingo. TR: [id number] DR: 02/16/2016 16:07:34 DE: 02/17/2016 02:56:15 JOB#: [id number] [Electronically Signed on 02.17.2016 09:06 AM]
Domingo, Lung K , DPM
</br> 02/16/2016 [Electronically Signed on 02.17.2016 09:06 AM] Domingo, Lung K, DPM [facility] Office/Clinic Notes Office/Clinic Notes Wound Care [address] [id number] RE: JUAN DIEGO SHI MR #: [id number] : 1965 DATE SEEN: 02-05-2016 Jua nDiego is a pleasant frj-ezvuteo-bthaokume type 2 diabetic, who is uncontrolled at this time, presents today following ulceration to her left foot. The patient overall is doing very well. The patient had to have the cast removed because it cracked on her, but otherwise she is doing very well. The patient did forget to bring the walking part of the EZ total contact cast today. The patient currently denies any fever, chills, nausea, vomiting. The patient has been using Santyl, dry sterile dressing daily. ALLERGIES: 1. ERYTHROMYCIN. 2. PENICILLIN. PHYSICAL EXAMINATION: Vitals today, blood pressure 140/89, respiratory rate 16, pulse 64, temperature 98.6 degrees. Vascular examination: Dorsalis pedis and posterior tibial pulses are palpable bilaterally. Bilateral lower extremity capillary refilling time 1 seconds x10. Neurologic examination: Protective threshold is absent via [place]-Stella 5.07-g monofilament to bilateral feet. Deep tendon reflexes are within normal limits to bilateral lower extremities. Dermatologic examination: Turgor, texture and temperature of the skin are all within normal limits. The patient does have ulceration, dorsal aspect of the fifth digit, left foot that currently measures 2 x 2 x 2 mm in depth. This ulceration is a full thickness ulceration with no edema, erythema, no probing to bone, mostly granular tissue, mild fibrinous base. The patient does have a second ulceration, plantar aspect of the left heel that currently measures 10 x 6 x 2 mm in depth. This ulcer is a full thickness ulceration with no edema, erythema, no probing to bone, mostly red beefy granular tissue, mild fibrinous base. Musculoskeletal examination: Muscle power is 5/5 bilateral lower extremities. No deficits noted. ASSESSMENT: 1. Full-thickness ulceration, left heel. 2. Full-thickness ulceration, fifth toe, left foot. 3. Vnt-qrpgraq-sgswipset diabetes with neuropathy, uncontrolled. Plan and procedure: Prior to the debridement, I explained to the patient, and to any person who has consented to the procedure on the patient's behalf, the nature, the purpose, benefits, risks and alternative treatments. I have further discussed possible consequences of the procedure, the principal risks involved and possible complications. The 2 ulcerations on the left foot was first anesthetized utilizing 2% topical lidocaine. Utilizing a 15 blade, all devitalized tissue removed through full- thickness depth with post-debridement measurements on the fifth digit that measures 3 x 3 x 2 mm in depth and on the left heel, measures 11 x 7 x 2 mm in depth and a dressing consisting of Santyl and dry sterile dressing was then applied. PLAN: 1. The patient to continue to clean both ulcers on a daily basis with antibacterial soap and water and apply Santyl and dry sterile dressing. The patient at this time will be prior authorized for Regranex gel. The patient is to start the Regranex gel once she gets in the mail. 2. The patient to continue to stay off her left foot and offload it with surgical shoe. In the meantime, I will see her. The patient at this time is approved for EpiFix at 100%, so when she comes back in 1 week, we are going to put a total contact cast on Epifix #1 at that time. The patient to continue to moisturize her feet on a daily basis with ammonium lactate cream to her feet twice a day. Dictated By: LUNG K DOMINGO, DPM DICTATED BY: Domingo Lung K. TR: [id number] DR: 02/05/2016 11:48:11 DE: 02/05/2016 12:22:30 JOB#: [id number] [Electronically Signed on 02.05.2016 01:48 PM]
Domingo, Lung K , DPM
</br> 02/05/2016 [Electronically Signed on 02.05.2016 01:48 PM] Domingo Lung K, DPM [facility] Office/Clinic Notes Office/Clinic Notes Wound Care [address] [address] RE: JUAN DIEGO SHI MR #: [id number] : 1965 DATE SEEN: 01/22/2016 Juan Diego is a pleasant jfz-rnnobxq-llvukyswq type 2 diabetic, which is uncontrolled at this time, presents today following up ulceration to her left foot. The patient in a total contact cast for the last 3 days, and she says overall she did really well, has not had any problems. Rates pain 0/10. ALLERGIES: 1. ERYTHROMYCIN. 2. PENICILLIN. PHYSICAL EXAMINATION: Vitals today: Blood pressure 123/82, respiration 18, pulse 75, and temperature 99.3 degrees. Vascular examination: Capillary refill x1 second. Neurologic examination: Protective threshold is absent. Dermatologic examination: Turgor, texture and temperature of the skin are all within normal limits. The patient has ulceration on the dorsal aspect of the fifth digit, left foot, that currently measures 3 x 7 x 2 mm in depth. This ulcer is a full- thickness ulceration with no edema, erythema, no probing to bone, all granular tissue, but very mild fibrinous base The patient has another ulceration on the plantar aspect of the left heel that currently measures 10 x 7 x 2 mm in depth. This ulcer is a full-thickness ulceration with no edema, erythema, no probing to bone, all granular tissue, with mild fibrinous base. ASSESSMENT: 1. Full-thickness ulceration, left heel. 2. Full-thickness ulceration, fifth digit, left foot. 3. Nlu-rffjcox-ohgxrnzyf diabetes mellitus with neuropathy, uncontrolled. PROCEDURE: Wound consent: Prior to the debridement, I explained to the patient , and to any person who has consented to the procedure on the patient's behalf, the nature, the purpose, benefits, risks and alternative treatments. I have further discussed possible consequences of the procedure, the principal risks involved and possible complications. The two ulcerations on the left foot were now redressed with Aquacel AG, dry sterile dressing, and an EZ total contact cast was now applied to the left lower extremity in standard technique. The patient tolerated application without any concerns. PLAN: 1. The patient will follow up one week from 02/02/2016, for cast check and wound evaluation. The patient was advised to continue to monitor for cast complications. If it occurs, the patient is going to the emergency room to have it removed and never to wait too long if there is a problem. Otherwise, I will see her in 1 week from Tuesday. [facility]. Dictated By: FLAVIA DOMINGO DPM DICTATED BY: Flavia Domingo TR: [id number] DR: 01/22/2016 12:18:11 DE: 01/22/2016 17:56:40 JOB#: [id number] [Electronically Signed on 01.23.2016 09:40 AM]
Flavia Domingo DPM
</br> 01/22/2016 [Electronically Signed on 01.23.2016 09:40 AM] Flavia Domingo K, DPM [facility] Office/Clinic Notes Office/Clinic Notes Office/Clinic Note-Physician Corrected copy Wound Care [address] [address] RE: JUAN DIEGO SHI MR #: [id number] : 1965 DATE SEEN: 01/19/2016 Juan Diego is a pleasant ssh-zuomxcl-fwkfzlibc type 2 diabetic, which is uncontrolled at this time, presented today following ulcerations to her left foot. The patient has been using Santyl with dry sterile dressing as directed and surgical shoe to bilateral feet for offloading. The patient has been using ammonium lactate cream to her feet twice a day for treatment of dry skin. The patient currently denies any fever, chills, nausea, or vomiting. ALLERGIES: 1. ERYTHROMYCIN. 2. PENICILLIN. PHYSICAL EXAMINATION: Vitals Today: Blood pressure 132/67, respiratory rate 16, pulse 82, and temperature 97.3 degrees. Vascular examination: Dorsalis pedis and posterior tibial pulses are palpable bilaterally. Bilateral lower extremity capillary refilling time 1 second x10. Neurologic examination: Protective threshold is absent via [place]-Stella 5.07-g monofilament to bilateral feet. Deep tendon reflexes are within normal limits to bilateral lower extremities. Dermatologic examination: Turgor, texture, and temperature of the skin are all within normal limits. The patient does have a full-thickness ulceration on the dorsal aspect of the fifth digit, left foot that currently measures 9 x 6 x 2 mm in depth. This ulcer is a full-thickness ulceration with no edema, erythema, or probing to bone, mostly granular tissue with a mild fibrinous base. The patient has another ulceration on the plantar aspect of left heel that currently measures 12 x 10 x 3 mm in depth. This ulceration does extend down to subcutaneous tissue with no edema, erythema, and no probing to bone, mostly granular tissue with a mild fibrinous base. Musculoskeletal examination: Muscle power is 5/5 bilateral lower extremities. No deficits noted. ASSESSMENT: 1. Subcutaneous depth ulceration, left heel. 2. Full-thickness ulceration, fifth digit, left foot. 3. Bni-tpjxusv-piwicgmkr diabetes mellitus with neuropathy, uncontrolled. Prior to the debridement, I explained to the patient, and to any person who has consented to the procedure on the patient's behalf, the nature, the purpose, benefits, risks and alternative treatments. I have further discussed possible consequences of the procedure, the principal risks involved and possible complications. PROCEDURE: 1. The ulceration on the fifth digit, left foot was first anesthetized utilizing 2% topical lidocaine. Utilizing a 15 blade, all devitalized tissue was removed through full-thickness depth with the post-debridement measurement currently measures 10 x 7 x 2 mm in depth, and a dressing consisting of Aquacel Ag and dry sterile dressing was then applied. 2. The ulceration of the left heel was also anesthetized utilizing 2% topical lidocaine. Utilizing a 15 blade, all devitalized tissue was removed through subcutaneous tissue depth with that post-debridement measurement that measures 13 x 11 x 3 mm in depth, and a dressing consisting of Aquacel Ag and dry sterile dressing was then applied. 3. An EZ total contact cast was now applied to the left lower extremity in standard technique. The patient tolerated application without any concerns. PLAN: 1. The patient to monitor and cast check, information dispensed. If she ever has any problem, the patient to give us a call us immediately or go to emergency room and have it removed. 2. The patient will follow up for cast check #1 on January 21 just to make sure if everything is going okay, and after that, will go a week at a time. 3. The patient to continue using ammonium lactate cream to her feet twice a day to address the dry skin, and I will see her back next to see how she is doing. PLAN: The patient, at this time, will also get prior authorized for EpiFix for possible application in the very near future. TR: [id number] DR: 01/19/2016 04:41:00 pm DE: 01/20/2016 04:18:55 am JOB#: [id number] Dictated By: LUNG K ARLETTE DOMINGO DICTATED BY: Flavia Domingo. TR: [id number] DR: 01/19/2016 16:41:00 DE: 01/20/2016 05:09:00 CR: 01/20/2016 10:30 [facility] [place] JOB#: [id number] [Electronically Signed on 01.20.2016 10:41 AM]
Flavia Domingo , DPM
</br> 01/19/2016 [Electronically Signed on 01.20.2016 10:41 AM] Flavia Domingo, DPM [facility] Office/Clinic Notes Office/Clinic Notes Wound Care [address] [address] RE: JUAN DIEGO SHI MR #: [id number] : 1965 DATE SEEN: 12/29/2015 Juan Diego is a pleasant evf-lrmvnqg-tupxvehck type 2 diabetic, which is uncontrolled at this time, presents today following up ulceration to her left foot. The patient has been using Santyl with dry sterile dressing as directed and using surgical shoe to bilateral feet for offloading. The patient is currently using ammonium lactate cream to feet as directed twice a day to both feet for treatment of severe dry skin. ALLERGIES: 1. ERYTHROMYCIN. 2. PENICILLIN. PHYSICAL EXAMINATION: Vitals Today: Blood pressure 199/93, respiratory rate 20, pulse 75, and temperature 97.3 degrees. Vascular examination: Dorsalis pedis and posterior tibial pulses are palpable bilaterally. Bilateral lower extremity capillary refilling time 1 second x10. Neurologic examination: Protective threshold is absent via [place]-Stella 5.07-g monofilament to bilateral feet. Deep tendon reflexes are within normal limits to bilateral lower extremities. Dermatologic examination: Turgor, texture, and temperature of the skin are all within normal limits. The patient does have ulceration on the plantar aspect of the left heel that currently measures 11 x 9 x 2 mm in depth. The ulceration is a full-thickness ulceration with no edema, erythema, no probing to bone, mostly granular tissue with a fibrinous base. No probing to bone. The patient has a second ulceration to the dorsal aspect of the fifth digit, left foot that currently measures 3 x 2 x 3 mm in depth and does extend down to subcutaneous tissue with no edema, erythema, no probing to bone, mostly granular tissue with a mild fibrinous base. No probing to bone. The patient continues to have plantar scaly skin and fissuring, bilateral feet. There is a worsening fissure, submetatarsal head #1 on the left foot, but nothing open at this time. Musculoskeletal examination: Muscle power is 5/5 bilateral lower extremities. No deficits noted. Prior to the debridement, I explained to the patient, and to any person who has consented to the procedure on the patient's behalf, the nature, the purpose, benefits, risks and alternative treatments. I have further discussed possible consequences of the procedure, the principal risks involved and possible complications. PROCEDURE: 1. The ulceration on the fifth digit, left foot was first anesthetized utilizing 2% topical lidocaine. Utilizing a 15 blade, all devitalized tissue was removed through subcutaneous tissue depth with post-debridement measurement currently measures 4 x 3 x 3 mm in depth and a dressing consisting of Santyl and wet-to-dry dressing was then applied. 2. The ulceration on the left heel was also anesthetized utilizing 2% topical lidocaine. Utilizing a 15 blade, all devitalized tissue was removed through full -thickness depth with a post-debridement measurement currently measures 12 x 10 x 2 mm in depth, and a dressing consisting of Santyl and wet-to-dry dressing was then applied. PLAN: 1. The patient at this time continue to clean the ulceration to bilateral feet on a daily basis with antibacterial soap and water and apply Santyl and wet-to- dry dressing on a daily basis. 2. The patient to continue wearing surgical shoe to both feet for off loading. 3. The patient to continue ammonia lactate cream to her feet twice a day for treatment of severe dry skin. I will see him back in 2 weeks for another wound evaluation. Dictated By: LUNG K CHAYO DPM DICTATED BY: Chayo Flavia Keller. TR: [id number] DR: 12/29/2015 16:24:22 DE: 12/30/2015 08:49:55 JOB#: [id number] [Electronically Signed on 12.30.2015 09:03 AM]
Flavia Domingo , DPM
</br> 12/29/2015 [Electronically Signed on 12.30.2015 09:03 AM] Flavia Domingo, DPM [facility]KA[facility]A Ferritin 17.3 ng/mL 3.0 - 105.0 12/26/2015 N [facility] IRON LEVEL Iron Level 31 mcg/ dL 35 - 150 12/26/2015 LOW [facility] Office/Clinic Notes Office/Clinic Notes [facility] at [address] [address] PATIENT: JUAN DIEGO SHI MR #: [id number] : 1965 DATE SEEN: 12/26/2015 Chief Complaint Juan Diego is here for a follow up per Sabina. Additional Information: [place] History of Present Illness Ms. Shi is a 50-year-old white female, a new patient in my office, with numerous medical problems. She had a history of diabetes for some time. She also has hypertension, severe obesity, obstructive sleep apnea on CPAP. She was also found to have severe vitamin D deficiency and anemia. She has multiple foot ulcers that has been followed by Podiatry. She was hospitalized in [place] for about a week. It looked like her diabetes had been diagnosed during hospitalization. The patient also states that she has a chronic seizure disorder that has been going on for about 10 years. She is claiming that she is having frequent seizures. In fact, she had 1 last night. These are not grand mal seizures, but some change in mental status. She was not able to explain it well. It looked like the patient had some extensive evaluation regarding this. She had seen Dr. Donna Sierra, the neurologist in [facility], and has been referred to their seizure clinic. She had an EEG done. She was told that she did not have seizure, she had bipolar disorder. However, [_David_], that she has been following with recently, has told her that her seizure was related to elevated zinc. She is claiming that she has a very high zinc level, although she has not been using any zinc supplement. The patient states that she has occasional low blood glucose, especially at night, since she has been started on insulin. She has no other new complaints. Review of Systems Usual Hours of Sleep: 4 Per the past medical history and history of present illness. Other systems were reviewed and they were otherwise negative. Allergies erythromycin penicillin Current Medications aAccu check strips (Miscellaneous Medication), Used to check blood glucose QID carbamazepine 200 mg oral tablet (carbamazepine), 200 mg, Oral, 3 times a day Humalog KwikPen (insulin lispro), , Subcutaneous Lancets (Miscellaneous Medication), Used to test blood glucose QID Lantus Solostar Pen (insulin glargine), , Subcutaneous levothyroxine 25 mcg (0.025 mg) oral tablet (levothyroxine), 25 mcg, Oral, Every 24 hours lisinopril 10 mg oral tablet (lisinopril), 10 mg, Oral, Daily metformin 1000 mg oral tablet (metformin), 1,000 mg, Oral, 2 times a day metoprolol tartrate 100 mg oral tablet (metoprolol), 100 mg, Oral, 2 times a day Santyl 250 units/g topical ointment (collagenase topical), 1 Apply, Topical, Every 24 hours Problems and Past Medical History Active Diabetes Diabetic foot ulcers Hypermenorrhea Hypertension Hypothyroidism Morbid obesity with BMI of 45.0-49.9, adult Neuropathy URIEL on CPAP Seizure disorder due to Zinc Poisoning Vitamin D deficiency Family History DM (diabetes mellitus) type I controlled with renal manifestation Mother Heart disease.. Mother Grandparent Procedure History tonsillectomy at 08/08/2002. Tubal Ligation Social History Caffeine Use: Current Caffeine Type: Coffee, Soda, Tea, Energy beverages Caffeine Frequency: Daily Tobacco/Nicotine Usage: Current Smoking Status: Smokes daily Tobacco/Nicotine Type: Cigarettes Packs Per Day: 0.5 Number of Years-Tob Use: 20 Total Pack Years: 10 Recreational Drug Use: Denies Physical Examination TEMP BP Pulse RR MAP O2 Sat 36.7 128/53 75 18 78 96 Blood Pressure Location: Left arm Oxygen Therapy: Room air Weight Height BMI BSA 145.63 kg (321.06 lbs) 171 cm 49.8 kg/m2 2.6301 m2 Scale: Standing digital General: A well-developed, well-nourished female in no acute distress. Vital Signs: As recorded. HEENT: Normal conjunctivae and lids. External inspection of the ears and nose is normal. The oropharynx is within normal limits. Neck: No jugular venous distention, thyromegaly, or adenomegaly. Lungs: Clear to auscultation bilaterally. Cardiovascular: Regular rate and rhythm without murmur or gallop. Peripheral pulses are symmetrical. She has 1+ edema on her legs. Chest: Normal. Abdomen: No masses, tenderness, or organomegaly. Her abdomen is severely obese. Lymphatic: No lymphadenopathy of neck, axillae, or groin. Musculoskeletal: No gross deformity, weakness, or tremor. Skin: She has 3 ulcers on her left foot. One on her heel, which is actually the largest one, but the are clean and they are having no sign of infection and healing well. She had an ulcer on her right foot that has actually healed. Neurologic: Normal coordination and cortical function. Psychiatric: Normal mood and affect. Data Review Her laboratory studies were reviewed. She has anemia and she also has some severe vitamin D deficiency. Impression 1. Diabetes (E11.9). 2. Hypertension (I10). 3. Morbid obesity with BMI of 45.0-49.9, adult (E66.01). 4. Anemia (D64.9). 5. Vitamin D deficiency (E55.9). 6. Hypermenorrhea (N92.0). 7. URIEL on CPAP (G47.33). 8. Diabetic foot ulcers (E11.621). Plan Medication changes this visit: New Vitamin D2 50,000 intl units oral capsule, 50,000 IU, Oral, 2x per Wk, Quantity : 8, Refills: 2 ferrous sulfate 325 mg (65 mg elemental iron) oral tablet, 325 mg, Oral, BID, Quantity: 60, Refills: 0 Orders this visit: Follow Up 1 Month -Request US Transvaginal Pelvic Sono - Request Future Orders: Fecal Occult Blood Screening -Clinic - 01/03/16 12:06 Fecal Occult Blood Screening -Clinic - 12/29/15 15:38 In regard to her diabetes, as mentioned, the patient has some episodes of hypoglycemia in the evening. We did decrease her Humalog, that she has been taking 28 units. We decreased it to 20 units before each meal, plus a sliding scale that she will add. In regard to her foot ulcers that are healing, the patient advised to continue to follow with the women's activities adviser. Regarding her hypertension, that is relatively well controlled, the patient was advised to continue current medication. We are going to check a CMP and I will make further recommendation when the report is available. Regarding her morbid obesity, the patient was advised to try to decrease her calorie intake. I think she might be a good candidate for Victoza or a similar medication to help her control her diabetes better and also lose weight, may consider this in the future. Meanwhile, she was advised to decrease her calorie intake and increase physical activity. Regarding her anemia, this is most probably related to hypermenorrhea. I did order a stool FIT test to be done. We also ordered a transvaginal pelvic ultrasound for further evaluation of her hypermenorrhea. Regarding her vitamin D deficiency, she was started on vitamin D supplement. In regard to her obstructive sleep apnea, she was advised to continue her CPAP. TR: GRANT JORGE#: [id number] [Electronically Signed on 12.30.2015 10:20 AM]
Katelyn Kyle MD
</br> 12/26/2015 [Electronically Signed on 12.30.2015 10:20 AM] Katelyn Kyle MD [facility] A1C Hgb A1c 8.1 % - <=5.6 12/26/2015 [place] Hgb A1c values
<5.7% Normal
5.7- 6.4% Increased risk for diabetes (pre-diabetes)
>6.5% Diabetes
[facility] -Auto Diff Abs Eos .21 x10^3/ uL .00 - .40 12/26/2015 N [facility] CBC with Diff NRBC% 0 /100 WBC - <=0 12/26/2015 N WBC count corrected for NRBCs present
[facility] Manual Differential Morphology Hypochrom 2 - <=0 2015 [place] [facility] P7 LDLC 81 60 - 99 12/26/2015 [facility] P7 HDL 40 mg/dL 40 - 60 12/26/2015 [facility] TSH TSH 6.000 uIU/mL 0.354 - 5.720 12/26/2015 [facility] VIT B12 Vit B12 Level 661 pg/ mL 180 - 914 12/26/2015 [facility] CARBM Carbamaz Level 5.4 mcg/ mL 4.0 - 12.0 12/26/2015 [facility] Office/Clinic Notes Office/Clinic Notes Patient: JUAN DIEGO SHI Age: 50 years Sex: Female : 1965 Associated Diagnoses: None Author: Sabina Spence APRN Chief Complaint Reason For Visit: Juan Diego is here for follow up after being in hospital, got out the 21 of November. Interval History Diabetes, Type 2 Mrs Shi returns to our clinic today to follow up after a recent hospitalization. She reports a history of Diabetes Type 2 and was taking Metformin from age 38 to age 44, but had stopped as she was controlling her blood sugar with diet. However, she was recently hospitalized due to severe infection and found to have an extremely elevated blood glucose and was placed back on the Metformin and also Insulin. Juan Diego states she was started on Lantus daily and Humalog daily with additional as per a sliding scale. She is here today to follow up regarding her Diabetic medications. Juan Diego has noted some low blood sugars and had called the Nurse Helpline and was instructed to schedule an appointment to discuss her blood sugars and insulin. She states her has been for good at keeping her on a Diabetic Diet, however, they are interested in Diabetic Diet counseling. Her other chronic medical issues include :Seizure Disorder from Zinc Poisoning, Diabetic Foot Ulcers-under the care of Wound Clinic at [facility], Hypertension, Hypothyroidism, Diabetic Neuropathy, and Obesity.. Review of Systems Constitutional: No fever, No chills, No sweats. Eye: Negative. Ear/Nose/Mouth/Throat: Negative. Respiratory: No shortness of breath. Cardiovascular: No chest pain. Gastrointestinal: Heartburn, No nausea, No vomiting, No diarrhea, No constipation. Genitourinary: No dysuria. Endocrine: Hot flashes, Hypoglycemia, excessive sweats with low blood sugar. Musculoskeletal: Feet are sore due to sores, these are being treated by Wound Clinic [facility]. Integumentary: Negative. Neurologic: Alert and oriented X4, Seizure, Juan Diego reports her seizure disorder is from zinc poisoning years ago. She reports the seizures are not a typical seizure. She reports they are small and are less frequent. Juan Diego states they will subside if she sits down and she does not lose consciousness, No dizziness , No headache. Psychiatric: Negative. A complete review of systems was negative except as noted above and in the history of present illness Health Status Allergies: Allergic Reactions (Selected) Severe Erythromycin- No reactions were documented. Penicillin- No reactions were documented. Current medications: (Selected) Prescriptions Prescribed Lancets: See Instructions, Used to test blood glucose QID, 100 EA, 6 Refill(s) aAccu check strips: See Instructions, Used to check blood glucose QID, 100 EA, 6 Refill(s) Documented Medications Documented Humalog KwikPen: SQ, 0 Refill(s) Lantus Solostar Pen: SQ, 0 Refill(s) Santyl 250 units/g topical ointment: 1 Apply, TOP, Q24H, 0 Refill(s) carbamazepine 200 mg oral tablet: 1 Tab, PO, TID, 0 Refill(s) levothyroxine 25 mcg (0.025 mg) oral tablet: 1 Tab, PO, Q24H, 0 Refill(s) lisinopril 10 mg oral tablet: 1 Tab, PO, daily, 90 Tab, 0 Refill(s) metformin 1000 mg oral tablet: 1 Tab, PO, BID, 60 Tab, 0 Refill(s) metoprolol tartrate 100 mg oral tablet: 1 Tab, PO, BID, 60 Tab, 0 Refill(s) Problem list: All Problems Diabetes / SNOMED CT 949583847 / Confirmed Neuropathy / SNOMED CT 4238240126 / Confirmed Hypertension / SNOMED CT 7807032736 / Confirmed Diabetic foot ulcers / SNOMED CT 7489835185 / Confirmed Morbid obesity with BMI of 45.0-49.9, adult / SNOMED CT 594237703 / Confirmed Hypothyroidism / SNOMED CT 85767074 / Confirmed Seizure disorder due to Zinc Poisoning / SNOMED CT 155955947 / Confirmed Histories Past Medical History: No active or resolved past medical history items have been selected or recorded. Family History: DM (diabetes mellitus) type I controlled with renal manifestation Mother Heart disease.. Mother Grandparent Procedure History: tonsilectomy on 08/08/2002 at 37 Years. Tubal Ligation. Social History Caffeine Use Caffeine Use: Current Caffeine Type: Coffee, Soda, Tea, Energy beverages Caffeine Frequency: Daily Tobacco/Nicotine Usage: Current Smoking Status: Smokes daily Tobacco/Nicotine Type: Cigarettes Packs Per Day: 0.5 Number of Years-Tob Use: 20 Total Pack Years: 10 Recreational Drug Use: Denies . Physical Examination VS/Measurements Vitals View 12/22/2015 10:37 CDT Height 171 cm Weight 145.9 kg Scale Standing digital BSA 2.6325 m2 Body Mass Index 49.9 kg/m2 Temperature Tympanic 36.6 DegC Peripheral Pulse Rate 65 bpm Respiratory Rate 18 br/min Systolic Blood Pressure 141 mmHg HI Diastolic Blood Pressure 80 mmHg Mean Arterial Pressure. 100.33 mmHg Blood Pressure Location Left arm Location-Pain 1 Head Intensity-Pain 5 Pain Symptoms Yes Oxygen Therapy Room air Oxygen Saturation 98 % General: Alert and oriented, No acute distress, Mrs Shi is a very pleasant lady here after a recent hospitalization to discuss her insulin medication.. Ambulation status: With steady gait. Appearance: Well nourished, Well developed. HENT: Normocephalic, Oral mucosa is moist. Neck: Supple, Non-tender, No carotid bruit, No jugular venous distention, No lymphadenopathy, No thyromegaly. Respiratory: Lungs are clear to auscultation, Respirations are non-labored, Breath sounds are equal, Symmetrical chest wall expansion. Cardiovascular: Normal rate, Regular rhythm, No murmur, No edema. Gastrointestinal: Soft, Non-tender, Normal bowel sounds, No organomegaly, abdomen is morbidly obese with BMI of 49.9 and appears distended. Musculoskeletal: Normal range of motion, Normal strength, Normal gait. Integumentary: Warm, Dry, [place]. Feet: Feet were examined with open sore on dorsal left ankle, scant serosangionous discharge noted. No signs of infection noted. Bandaid placed. Left lateral heel with diabetic foot ulcer approximately 2 cm in length, Santyl cream was applied with no tenderness, no redness, no drainage noted. A new sterile dressing placed and secured by Marco A. FROM noted Right heel with healing ulcer, no drainage, no redness, no tenderness. FROM noted. New bandage placed. . Neurologic: Alert, Oriented, No focal defects. Psychiatric: Cooperative, Appropriate mood & affect, Normal judgment, Non- suicidal. Mood and affect: Calm. Behavior: Relaxed, concerned with low blood sugar readings.. Review / Management Results review: Reviewed medication record from Hospital Discharge and Blood sugar log since discharge. Lowest blood sugar was 46 and this was noted after receiving Humalog 28 units plus 1 unit per the sliding scale. Juan Diego has rarely needed the sliding scale, but when used noted drops in blood sugar are evident on the log. The majority of the blood sugars are in normal range without the use of additional Humalog insulin. The highest blood sugar was 191.. Impression and Plan Diagnosis Diabetes (CUM79-II E11.9). Diabetic foot ulcers (KQW85-JL E11.621). Hypoglycemia episodes (ZNT04-QD E16.2). Hypertension (WXU12-BE I10). Hypothyroidism (QWS14-BA E03.9). Seizure disorder due to Zinc Poisoning (BOM62-GY G40.909). Orders Orders (Selected) Outpatient Orders Ordered Dietitian Consult -Request: Completed Follow Up 1 Week- Request: Office Visit Level 4 Est - [id number]: Prescriptions Prescribed levothyroxine 25 mcg (0.025 mg) oral tablet: 1 Tab, PO, Q24H, 30 Tab, 3 Refill(s ) lisinopril 10 mg oral tablet: 1 Tab, PO, daily, 30 Tab, 3 Refill(s) metformin 1000 mg oral tablet: 1 Tab, PO, BID, with meals, 60 Tab, 3 Refill(s). Counseled: Patient, Regarding diagnosis, Regarding medications. Regarding treatment: Regarding Diabetes with recent Hypoglycemic episodes, Juan Diego was instructed to continue the Lantus Insulin at 60 units daily and only use the sliding scale insulin as written if her blood glucose is elevated. She was instructed to stop the Humalog 28 units prescribed due to hypoglycemic episodes. She will continue to monitor and record her blood glucose. A Diabetic Diet Consult will be ordered. Regarding Diabetic Foot Ulcers, these are healing very nicely. Dressing changes completed today. Regarding Hypertension, this is controlled on current medication. Regarding Hypothyroidism, a refill of Levothyroxine was provided. Regarding Seizure Disorder, Juan Diego reports this are mini episodes and have become less frequent. We will refer Juan Diego to Internal Medicine, Dr Kyle, due to her numerous chronic medical issues this week. We will obtain fasting labs to prior to the appointment: Tegretol level, TSH, CMP, CBC, FLP, Hgb A1C, Vitamin D and Vitamin B-12.. Patient Instructions: Diabetes - Hypoglycemia - Teaching Bulletin (CUSTOM), DIABETES, General Info, Diabetes: Learning About Serving and Portion Sizes, Diabetes: Understanding Carbohydrates, Diabetes: Understanding Carbohydrates, Fats, and Protein, DIABETIC DIET. [Electronically Signed on 12.23.2015 08:08 AM]
Sabina Spence APRN
</br> I have reviewed and/or discussed the above record and agree with the findings and recommendations. Also will need labs done before any medication refills. [Electronically Signed on 12.23.2015 12:54 PM]
Katelyn Kyle MD
</br> 12/22/2015 [Electronically Signed on 12.23.2015 08:08 AM] Bebe Sabina Welch APRN [Electronically Signed on 12.23.2015 12:54 PM] Katelyn Kyle MD [facility] Office/Clinic Notes Office/Clinic Notes Wound Care [address] [id number] RE: JUAN DIEGO SHI MR #: [id number] : 1965 DATE SEEN: 12/22/2015 HISTORY OF PRESENT ILLNESS: Tierra is a pleasant ypj-trbaeqb-japkoobzy type 2 diabetic, who is uncontrolled at this time, presents today following up ulceration to both her feet. The patient is using Santyl with dry sterile dressing as directed. Using ammonium lactate cream to her feet as directed twice a day. The patient is wearing her surgical shoe to both feet for off loading and she says her foot looks pretty well, has not had increased significant issues. She denies any fever, chills, nausea, vomiting. ALLERGIES: 1. ERYTHROMYCIN. 2. PENICILLIN. PHYSICAL EXAMINATION: Vitals today, blood pressure 132/76, respiratory rate 18 , pulse 77, temperature 98.6 degrees. Vascular examination: Capillary refill time 1 seconds x10. Protective threshold is absent. Dermatologic examination: Turgor, texture and temperature of the skin are all within normal limits. The patient does have plantar scaly skin and fissuring, bilateral feet, but it is improving. The patient has ulceration on the anterior aspect of the left ankle that currently measures 14 x 5 x 2 mm in depth. This ulcer is a full thickness ulceration with no edema, erythema, probing to bone, mostly granular tissue with a mild fibrinous base. The patient has a second ulceration on the plantar aspect of the left heel that currently measures 13 x 10 x 2 mm in depth. This ulcer is a full thickness ulceration with no edema, erythema, no probing to bone, mostly granular tissue with a mild fibrinous base. The patient has a third ulceration on the dorsal aspect of the fifth digit, left foot, that currently measures 5 x 4 x 3 mm in depth. This ulceration does seem to extend down to subcutaneous tissue, but there is no edema or erythema. No probing to bone. It does have a moderate of fibrinous base and no purulent drainage. Musculoskeletal Examination: Muscle power is 5/5 bilateral lower extremities. No deficits noted. ASSESSMENT: 1. Full-thickness ulceration, left heel. 2. Full-thickness ulceration, left anterior ankle. 3. Subcutaneous depth ulceration, fifth digit, left foot. 4. Dyr-hggcuoi-cphprloae diabetes with neuropathy, uncontrolled. 5. Xerosis of skin, bilateral feet. Prior to the time of the procedure above described, I explained in layman's terms to the patient named above and to any person who has consented to the procedure on the patient's behalf, the nature and purpose of the procedure; potential benefits, risks, and side effects of the proposed procedure; the likelihood of achieving expected goals; and potential problems that might occur during recuperation. In addition, I have explained the reasonable alternatives to the proposed procedure including the risks, benefits, and side effects related to the alternatives and the risks related to not receiving the proposed treatment. The patient or member service representative has indicated understanding and is willing to proceed. PROCEDURE #1: The ulceration on the left heel was first anesthetized utilizing 2% topical lidocaine. Utilizing a 15 blade, all devitalized tissue was removed through full-thickness depth and with post-debridement measurements that currently measures 14 x 11 x 2 mm in depth and a dressing consisting of Santyl and wet-to-dry dressing was then applied. PROCEDURE #2: The ulceration, left anterior ankle was also anesthetized utilizing 2% topical lidocaine. Utilizing a 15 blade, all devitalized tissue was removed through full-thickness depth and with post-debridement measurement currently measures 15 x 6 x 2 mm in depth and a dressing consisting of Santyl and wet-to-dry dressing was then applied. PROCEDURE #3: The ulceration on the fifth digit, left foot, was also anesthetized utilizing 2% topical lidocaine. Utilizing a 15 blade, all devitalized tissue was removed through subcutaneous tissue depth, with post- debridement measurement that currently measures 6 x 5 x 3 mm in depth and a dressing consisting of Santyl and wet-to-dry dressing was then applied. PLAN: 1. The patient to continue to clean up all the ulceration to the left foot on a daily basis antibiotics with soap and water and apply Santyl and wet-to-dry dressing daily. 2. The patient to continue wearing surgical shoe to bilateral feet for off loading. 3. The patient to continue using ammonium lactate cream to her feet twice a day to dry skin except the areas of ulceration and we will see her back in 1 week for another wound evaluation. Dictated By: FLAVIA DOMINGO DPM DICTATED BY: Flavia Domingo. TR: [id number] DR: 12/22/2015 04:23:48 pm DE: 12/23/2015 05:08:40 am ED: 12/23/2015 8:14 [facility] [place]OB#: [id number] [Electronically Signed on 12.23.2015 09:13 AM]
Flavia Domingo DPM
</br> 12/22/2015 [Electronically Signed on 12.23.2015 09:13 AM] Flavia Domingo DPM [facility] Office/Clinic Notes Office/Clinic Notes Wound Care [address] [id number] RE: JUAN DIEGO SHI MR #: [id number] : 1965 DATE SEEN: 12/15/2015 HISTORY OF PRESENT ILLNESS: Juan Diego is a pleasant insulin-dependent type 2 diabetic, which is uncontrolled at this time, presents today following ulceration to bilateral feet, the patient says last couple of months now. The patient said it started off as a deep crack into her skin and it opened up. The patient to try over the counter moisturizer with no significant effect. The patient has seen Dr. Toro Copeland and was mupirocin cream and then referred to Dr. Trevizo and then referred here. The patient currently denies any fever, chills, nausea or vomiting, and denies any new concerns. No history of trauma or radiating pains. ALLERGIES: 1. ERYTHROMYCIN. 2. PENICILLIN. PHYSICAL EXAMINATION: Vitals today, blood pressure 128/74, respiratory rate 18 , pulse 77, temperature 99.3 degrees. Vascular examination: Capillary refill time was 1 second x10. Protective threshold is absent. Dermatologic examination: Turgor, texture and temperature of the skin are all within normal limits. The patient does have plantar scaly skin and fissuring to bilateral feet. The patient does have ulceration on the plantar aspect of the left heel that currently measures 15 x 10 x 3 mm in depth. This ulcer does extends into subcutaneous tissue with no edema, erythema, no probing to bone, mostly granular tissue with mild fibrinous base. The patient also has a ulceration to plantar aspect of the right heel that currently measures 6 x 3 x 2 mm in depth. This ulcer is a full thickness ulceration with no edema, erythema, no probing to bone, mostly granular tissue with fibrinous base, but it is very mild. Also , the patient has another ulceration on the dorsal aspect of the fifth digit, left foot that currently measures 4 x 3 x 2 mm in depth. This ulceration is a full thickness ulceration with no edema, erythema, no probing to bone. Mostly granular tissue with fibrinous base. The patient has a fourth ulceration anterior aspect of the left ankle that currently measures 8 x 8 x 3 mm in depth. This ulceration does extend to subcutaneous tissue with no edema, erythema, no probing to bone, mostly red granular tissue with a mild fibrinous base. Musculoskeletal examination: Muscle power is 5/5, bilateral. No deficits noted. ASSESSMENT: 1. Subcutaneous depth ulceration, left heel. 2. Full-thickness ulceration, right heel. 3. Full-thickness ulceration, fifth digit, left foot. 4. Subcutaneous depth ulceration anterior ankle, left foot. 5. Ywe-khywhwu-yluenzqqr diabetes with neuropathy, uncontrolled. PLAN AND PROCEDURE: Prior to the time of the procedure above described, I explained in laymans terms to the patient named above and to any person who has consented to the procedure on the patients behalf, the nature and purpose of the procedure; potential benefits, risks, and side effects of the proposed procedure; the likelihood of achieving expected goals; and potential problems that might occur during recuperation. In addition, I have explained the reasonable alternatives to the proposed procedure including the risks, benefits, and side effects related to the alternatives and the risks related to not receiving the proposed treatment. The patient or member service representative has indicated understanding and is willing to proceed. PROCEDURE #1: The ulceration of the left heel first anesthetized utilizing 2% topical lidocaine. Utilizing a 15 blade, all devitalized tissue was removed through subcutaneous tissue depth with a post-debridement measurement currently measures 16 x 11 x 3 mm in depth and a dressing consisting of Santyl and wet-to- dry dressing was then applied. PROCEDURE #2: The ulceration on the right heel was also anesthetized utilizing 2% topical lidocaine. Utilizing a 15 blade, all devitalized tissue was removed through full thickness depth, with post-debridement measurement that currently measures 7 x 4 x 2 mm in depth and a dressing consisting of Santyl and wet-to- dry dressing was then applied. PROCEDURE #3: The ulceration on the right heel was also anesthetized utilizing 2% topical lidocaine. Utilizing a 15 blade, all devitalized tissue removed to full-thickness depth with a post-debridement measurements that currently measures 7 x 4 x 2 mm in depth and a dressing consisting of Santyl and wet-to- dry dressing was then applied. PROCEDURE #4: The ulceration of fifth digit left foot was also anesthetized utilizing 2% topical lidocaine. Utilizing a 15 blade, all devitalized tissue was removed through subcutaneous tissue depth with a postdebridement measurement that currently measures 5 x 4 x 2 mm in depth. A dressing consisting of Santyl and wet-to-dry dressing was then applied. PROCEDURE #5: The ulceration anterior aspect of left ankle was also anesthetized with 2% topical lidocaine. Utilizing a 15 blade all devitalized tissue removed through subcutaneous tissue depth and a dressing consisting of Santyl wet-to-dry dressing was then applied. PLAN: 1. The patient will begin cleaning ulceration on a daily basis with antibacterial soap and water and apply Santyl and wet-to-dry dressing to ulceration to bilateral feet. 2. The patient will to [facility] for surgical shoe bilateral feet for off loading. 3. The patient given prescription of ammonium lactate cream to apply to her feet twice a day for treatment of dry skin to all areas except the ulceration. 4. The patient to monitor for edema and erythema. If it occurs, please go to the emergency room. 5. The patient will follow up in 1 week for another wound evaluation. The patient, at this time, will be set up with [facility] for dressing changes and [facility] for Santyl. Both of them will be mailed to her in the mail. Dictated By: FLAVIA DOMINGO DPM DICTATED BY: Flavia Domingo. TR: [id number] DR: 12/15/2015 17:14:51 DE: 12/16/2015 00:20:05 JOB#: [id number] [Electronically Signed on 12.16.2015 09:14 AM]
Flavia Domingo DPM
</br> 12/15/2015 [Electronically Signed on 12.16.2015 09:14 AM] Flavia Domingo DPM [facility] Office/Clinic Notes Office/Clinic Notes [facility] [address] [place] [address], [facility] [place] [address] PATIENT: JUAN DIEGO SHI MR #: [id number] : 1965 DATE SEEN: 12/09/2015 Chief Complaint Patient is here today for a DM foot exam , last seen Dr. Copeland on 11-24-15 for her diabetes. History of Present Illness Ms. Shi is a pleasant female with diabetes, per patient fairly well controlled, type 2. She presents here with bilateral heel wounds. She is diabetic with peripheral neuropathy. She had these wounds for about 2 months now. She has spent some time in [place] with IV (intravenous) antibiotics and oral antibiotics, subsequently. She has seen Dr. Toro Copeland who placed her on Bactroban ointment and recommended she follow up with us. Patient does not have an pain or discomfort. She has a history of seizures. She [___] stay at home. The wounds developed on the bottom of the feet without her knowing it. Review of Systems Cardiovascular: Swelling of hands or feet Musculoskeletal: Muscle or joint pain, Swelling of joints Neurological: Numbness, Tingling Usual Hours of Sleep: 4 Pertinent negative for the following system(s): Constitutional, Integumentary, Hematologic Allergies erythromycin penicillin Current Medications carbamazepine 200 mg oral tablet (carbamazepine), 200 mg, Oral, 3 times a day Humalog KwikPen (insulin lispro), , Subcutaneous Lantus Solostar Pen (insulin glargine), , Subcutaneous levothyroxine 25 mcg (0.025 mg) oral tablet (levothyroxine), 25 mcg, Oral, Every 24 hours lisinopril 10 mg oral tablet (lisinopril), 10 mg, Oral, Daily metformin 1000 mg oral tablet (metformin), 1,000 mg, Oral, 2 times a day metoprolol tartrate 100 mg oral tablet (metoprolol), 100 mg, Oral, 2 times a day mupirocin 2% topical cream (mupirocin topical), 1 Apply, Topical, 2 times a day Problems and Past Medical History Active Diabetes Neuropathy Family History DM (diabetes mellitus) type I controlled with renal manifestation Mother Heart disease.. Mother Grandparent Procedure History tonsillectomy at 08/08/2002. Social History Caffeine Use: Current Caffeine Type: Coffee, Soda, Tea, Energy beverages Caffeine Frequency: Daily Tobacco/Nicotine Usage: Current Smoking Status: Smokes daily Tobacco/Nicotine Type: Cigarettes Packs Per Day: 0.5 Number of Years-Tob Use: 20 Total Pack Years: 10 Recreational Drug Use: Denies Physical Examination TEMP BP Pulse RR MAP O2 Sat 37.0 130/80 75 96.67 96 Weight Height BMI BSA 144 kg (317.47 lbs) 171 cm 49.2 kg/m2 2.6153 m2 She is a pleasant female in no acute distress. Well-groomed with good hygiene. Vascular: DPs (dorsalis pedis) and PTs (posterior tibial) palpable to both right and left limb. Dermatological: Color, turgor, and texture within normal limits bilaterally with no open sores. Right and left foot heel ulcerations. Right foot ulceration measures 2 cm north and south, 0.5 cm east and west, and 2 mm in depth. The wound does not probe to bone. No drainage, no odor, and no purulence. Mild fibrinous tissue within the wound. The left foot ulcer measures 3 cm east and west, 1.8 cm north and south, and 3 mm in depth. The wound does not probe to bone. There is no evidence of any infection to either the right or left foot wounds with mid fibrinous and devitalized tissue to the wound. Neuro: Patellar and Achilles tendon reflexes 2/4 bilaterally. Musculoskeletal: Manual muscle testing 5/5 bilaterally. Impression 1. Non-pressure chronic ulcer of right heel and midfoot with fat layer exposed (L97.412). 2. Chronic ulcer of left foot (L97.529). Heel. 3. Diabetes (E11.9). Type 2 with no complications with peripheral neuropathy. Plan Orders this visit: DX Foot Lt 3 View- Request DX Foot Rt 3 View- Request Recommend patient keep off the feet. Patient is unable to do this. I did advise patient of the risks, such as limb loss and loss of life. Patient understands this. I also recommend she follow up with our wound clinic with Dr. Flavia Domingo and we can make her an appointment for this because I am only here once a month , so she will need to follow up with his care there. I do recommend that we get some labs on her and some vascular studies. She says she has had the vascular studies done in [place], so we will try to get those for Dr. Domingo for her. Also we will refer her for some new x-rays of both the right and the left foot. She will not be seeing me any more, she will be following with Dr. Domingo. TR: [id number] JORGE#: [id number] [Electronically Signed on 12.13.2015 08:41 AM]
Will Trevizo DPM
</br> 12/09/2015 [Electronically Signed on 12.13.2015 08:41 AM] KarinasybilSaikatharinejalen Kong, DPM [facility] FREET4 Free T4 0.87 ng/dL 0.58 - 1.64 11/24/2015 N [facility] Office/Clinic Notes Office/Clinic Notes [facility] at [address] [address] PATIENT: JUAN DIEGO SHI MR #: [id number] : 1965 DATE SEEN: 11/24/2015 Chief Complaint Juan Diego is here today for sores on both feet since about 2 months ago. History of Present Illness This 50-year-old white female presented to the clinic with a history of sores on her foot for about 2 months. She has a recent hospital stay at [place] where she was placed on IV (intravenous) antibiotics and oral antibiotics subsequently and needing to see a women's activities adviser as well. Her diagnoses have been reviewed. A medication reconciliation has been completed. Allergies are noted. Family history needs to be reviewed again and recorded. Review of Systems Usual Hours of Sleep: 4 Allergies erythromycin penicillin Current Medications carbamazepine 200 mg oral tablet (carbamazepine), 200 mg, 3 times a day Humalog KwikPen (insulin lispro) Lantus Solostar Pen (insulin glargine) levothyroxine 25 mcg (0.025 mg) oral tablet (levothyroxine), 25 mcg, Every 24 hours lisinopril 10 mg oral tablet (lisinopril), 10 mg, Daily metformin 1000 mg oral tablet (metformin), 1,000 mg, 2 times a day metoprolol tartrate 100 mg oral tablet (metoprolol), 100 mg, 2 times a day Problems and Past Medical History Active Diabetes Neuropathy Family History No Family History documentation found. Procedure History tonsillectomy at 08/08/2002. Social History Caffeine Use: Current Caffeine Type: Coffee, Soda, Tea, Energy beverages Caffeine Frequency: Daily Tobacco/Nicotine Usage: Current Smoking Status: Smokes daily Tobacco/Nicotine Type: Cigarettes Packs Per Day: 0.5 Number of Years-Tob Use: 20 Total Pack Years: 10 Recreational Drug Use: Denies Education Attained: College Physical Examination TEMP BP Pulse RR MAP O2 Sat 36.4 123/68 81 86.33 95 Blood Pressure Location: Left arm Weight Height BMI BSA 144.0 kg (317.47 lbs) 171 cm 49.2 kg/m2 2.6153 m2 Scale: Standing digital Vital signs are noted per chart. Her respiratory rate was 18 at the time of my examination. BMI noted. HEENT: Head is normocephalic. Pupils are equal, round and reactive. Extraocular muscles are intact. Ears, nose, mouth and throat are grossly normal. Neck: Supple. Chest: Clear to auscultation. Heart: Regular rhythm. Abdomen: Protuberant. Feet: Multiple areas of marked thickening of the skin and calluses. There are 3 areas, 1 anterior at the ankle on her left foot which is an open area. She said they had rode from the [facility] to [place] and back and she had her shoe on and it was fairly tight at that point and apparently rubbed a blister. It looks like it has a low-grade infection in it as well. There is lots of discoloration where she has had lots of tape and has not been able to get the piece of material back off her feet, partly from when she was in [facility]. On the bottom of her left foot there is an area that had been cracked open which is no longer erythematous or infected, minor exudate and minor drainage from it is still noted. On her right heel there is another area similar to that. Impression 1. Pressure sore, on both feet (L89.90). 2. Diabetes (E11.9). 3. Neuropathy (G62.9), diabetic. 4. Obesity (E66.9). Morbid. 5. Hypertriglyceridemia (E78.1). 6. Hypothyroidism (E03.9). Plan Medication changes this visit: New mupirocin 2% topical cream, 1 Apply, BID, Quantity: 30, Refills: 1 Orders this visit: Free T4 Follow Up 1 Week- Request Referral - Request, Podiatry, Will Trevizo, DPM, sores on feet & calluses We will plan to put mupirocin 2% cream applied twice a day to the wounds on her feet and we will have her see the women's activities adviser. We will have her back in about a week to reevaluate and we will get a free T4 since that was not done in the hospital. We referred her to a women's activities adviser here at the office. TR: [id number] JORGE#: [id number] [Electronically Signed on 11.26.2015 05:14 PM]
Toro Copeland MD
</br> 11/24/2015 [Electronically Signed on 11.26.2015 05:14 PM] Toro Copeland MD [facility] Vital Signs Vital Sign Value Date Comments Source Temperature Oral 36.6 DegC [facility] Peripheral Pulse Rate 79 bpm 02/16/2016 [facility] Respiratory Rate 18 br/min [facility] Systolic Blood Pressure 131 mmHg 02/16/2016 [facility] Diastolic Blood Pressure 74 mmHg 02/16/2016 [facility] Mean Arterial Pressure. 93 mmHg 02/16/2016 [facility] Temperature Oral 37 DegC [facility] Peripheral Pulse Rate 64 bpm 02/05/2016 [facility] Systolic Blood Pressure 140 mmHg 02/05/2016 [facility] Diastolic Blood Pressure 89 mmHg 02/05/2016 [facility] Mean Arterial Pressure. 106 mmHg 02/05/2016 [facility] Temperature Oral 37.4 DegC [facility] Peripheral Pulse Rate 75 bpm 01/22/2016 [facility] Respiratory Rate 18 br/min [facility] Systolic Blood Pressure 123 mmHg 01/22/2016 [facility] Diastolic Blood Pressure 82 mmHg 01/22/2016 [facility] Mean Arterial Pressure. 95.67 mmHg 01/22/2016 [facility] Temperature Oral 36.3 DegC [facility] Peripheral Pulse Rate 82 bpm 01/19/2016 [facility] Systolic Blood Pressure 132 mmHg 01/19/2016 [facility] Diastolic Blood Pressure 67 mmHg 01/19/2016 [facility] Mean Arterial Pressure. 88.67 mmHg 01/19/2016 [facility] Temperature Oral 36.3 DegC [facility] Peripheral Pulse Rate 75 bpm 12/29/2015 [facility] Respiratory Rate 20 br/min [facility] Systolic Blood Pressure 199 mmHg 12/29/2015 [facility] Diastolic Blood Pressure 93 mmHg 12/29/2015 [facility] Mean Arterial Pressure. 128.33 mmHg 12/29/2015 [facility] Temperature Oral 37.0 DegC [facility] Peripheral Pulse Rate 77 bpm 12/22/2015 [facility] Respiratory Rate 18 br/min [facility] Systolic Blood Pressure 132 mmHg 12/22/2015 [facility] Diastolic Blood Pressure 76 mmHg 12/22/2015 [facility] Mean Arterial Pressure. 94.67 mmHg 12/22/2015 [facility] Weight 137.2 kg 12/15/2015 [facility] Height 171 cm 12/15/2015 [facility] Current BMI 47 "" 12/15/2015 [facility] Temperature Oral 37.4 DegC [facility] Peripheral Pulse Rate 77 bpm 12/15/2015 [facility] Respiratory Rate 18 br/min [facility] Systolic Blood Pressure 128 mmHg 12/15/2015 [facility] Diastolic Blood Pressure 74 mmHg 12/15/2015 [facility] Mean Arterial Pressure. 92 mmHg 12/15/2015 [facility] Encounters Location Location Details Encounter Type Encounter Number Reason For Visit Attending Provider ADM Date DC Date Status Source [facility] 8249 [facility] [id number] EVAL LOW BACK PAIN Jodi Howluciano 10/10/2015 Active [facility] [id number] [facility] [id number] NEW/ BILATERAL FEET WOUNDS Toro Copeland Active [facility] [id number] Anju Rincon 11/24/2015 11/25/2015 [facility] [address]602 [id number] [facility] [id number] pressure sores on both feet Will Trevizo 12/09/2015 Active [facility] [id number] Bruce Ayala 12/09/2015 12/10/2015 [facility] [place] [id number] [facility] [id number] Lung Domingo 12/15/2015 Active [facility] attendant SERVICES [facility] [id number] Rosanna Mendoza 12/15/2015 12/23/2015 PROFESSIONAL SERVICES [facility] ( Outpatient) [id number] BOTH FEET / DM Lung Domingo 2015 Active [facility] (Outpatient) [id number] Lung Domingo 12/15/2015 12/16/2015 [facility] [address] [id number] Lung Domingo 12/22/2015 Active [facility] [address] [place] [address] [id number] EST/ FOLLOW UP PER DR. TAQUERIA Spence 2015 Active [facility] ( Outpatient) [id number] BOTH FEET / DM Lung Domingo 2015 Active [facility] [id number] Swathi Nguyen 12/22/2015 [facility] Clinic (Outpatient) [id number] Lung Domingo 12/22/2015 12/23/2015 [facility] [id number] [facility] [id number] chaka Spence 12/25/2015 Active [facility] [id number] Sabina Spence 12/25/2015 [facility] [address] [place] [address] [id number] EST/ FOLLOW UP PER SABINA Kyle 12/26/2015 Active [facility] [id number] Zurdo Perez 12/26/2015 [facility] [address] [id number] Lung Domingo 12/29/2015 Active [facility] [id number] BOTH FEET / DM Lung Domingo 2015 Active [facility] (Outpatient) [id number] Lung Domingo 12/29/2015 12/30/2015 [facility] [place] [id number] [facility] [id number] Lung Domingo 01/19/2016 Active [facility] [id number] BOTH FEET / DM Lung Domingo 2015 Active [facility] Wound Care [facility] [id number] Lung Domingo 201501/20/2016 [facility] [address] Clinic [id number] Lung Domingo 01/22/2016 Active [facility] [id number] BOTH FEET / DM Lung Domingo 2015 Active [facility] Wound Care [facility]) [id number] Lung Domingo 201501/23/2016 [facility] [address] [place] [address] [facility] [id number] EST/ 1 MONTH FOLLOW UP Hesamodin Borhani 01/23/2016 Active [facility] [address] Clinic [id number] Lung Domingo 02/05/2016 [facility] attendant SERVICES [facility] [id number] Hesamodin Borhani 02/05/2016 PROFESSIONAL SERVICES [facility] ( Outpatient) [id number] LEFT FOOT / CAST / DM Lung Domingo Active [facility] Wound Care [facility] (Outpatient) [id number] Lung Domingo 201502/06/2016 [facility] [address] Clinic [id number] Lung Domingo 02/16/2016 02/23/2016 Active [facility] [id number] LEFT FOOT / DM Lung Domingo 201502/16/2016 Active [facility] Wound Care [facility] (Outpatient[facility] [id number] Lung Domingo 201502/17/2016 [facility] [address] [place] [address] [id number] STOOL SAMPLE Sabina Bebe 02/20/2016 Discharged [facility] [id number] Sabina Bebe 02/20/2016 [facility] [id number] LEFT FOOT / DM Lung Domingo 02/23/2016 Active [facility] [address] [place] [address] [id number] EST/ TRISTAN Copeland 02/25/2016 02/25/2016 Active [facility] [id number] Toro Copeland 02/25/2016 [facility] [id number] [facility] [id number] PAP Sabina Spence 03/23/2016 Active [facility] [id number] Sabina Spence 03/23/2016 [facility] Pre- Clinic [id number] RIGHT FOOT TOE AND HEEL Lung Domingo 2015 Active [facility] [address] 8[address]99 [facility] [id number] EST/ HEAD COLD Sabina Spence 04/14/2016 Active [facility] [id number] Sabina Alfonso 04/14/2016 [facility] 59717 43439 [facility] [id number] EST/ 3 MONTH Hesamodin Borhani 05/13/2016 Active [facility] [id number] Hesamodin Borhani 05/13/2016 [facility] [facility] [id number] REFER PCP ABNORMAL PAP- PER GERRI Ramos 06/17/2016 Active [facility] [id number] Johnny Ramos 06/17/2016 [facility] [address] 71989 [facility] [id number] EST/ONE MONTH FOLLOW UP UP Hesamodin Borhani 06/18/2016 Active [facility] [id number] Hesamodin Borhani 06/18/2016 [facility] [id number] [facility] [id number] LABS Hesamodin Borhani 07/26/2016 Active [facility] 73731 44813 [facility] [id number] EST/ 6 WEEKS Hesamodin Borhani 2015 Active [facility] Procedures Procedure Code Date Perfomer Comments Source No data available for this section [facility] Plan of Care Social History Assessment and Plan Family History Value Date Source Advance Directives Order Name Results Value Date Source
--- OUTSIDE RECORDS SUMMARY | 2016-11-23 12:07 | XMS REPORT | Continuity of Care Document ---
Author Author [facility] Organization [facility] Address Unknown Phone Unavailable Care Team Providers Care Manager Account Management Name Role Phone Jacinda Mi Primary Care Physician [phone] Source Comments Some departments are not documenting in the electronic medical record. If you do not see the information that you expected, contact Release of Information in the Health Information Management department at [phone] for further assistance in locating additional records.[facility] Active Allergies and Adverse Reactions Allergen Noted Date Severity Reactions Comments Erythromycin 01/06/2011 HIVES Penicillins 01/06/2011 HIVES, NAUSEA AND VOMITING Current Medications Prescription Sig. Disp. Refills Start End Date Status Date sertraline (ZOLOFT) 50 mg Take 50 mg by mouth Active PO tablet daily. metformin (GLUCOPHAGE) Take 500 mg by mouth Active 500 mg PO tablet twice daily with meals. gabapentin (NEURONTIN) Take 800 mg by mouth four Active 400 mg PO capsule times daily. clidinium/chlordiazepoxid Take 1 Cap by mouth every Active e(+) (LIBRAX) 2.5/5 mg PO 6 hours as needed. Cap Active Problems Problem Noted Date Neuropathy (HCC) 01/06/2011 Overview: Lower extremities.l Consciousness alteration 01/06/2011 Insulin resistance 01/06/2011 Social History Tobacco Use Types Packs/Day Years Used Date Current Some Day Smoker Cigarettes 1.5 15 Alcohol Use Drinks/Week oz/Week Comments No Last Filed Vital Signs Vital Sign Reading Time Taken Blood Pressure 146/90 01/08/2011 11:45 AM CDT Pulse 83 01/08/2011 11:45 AM CDT Temperature 36.7 C (98 F) 01/08/2011 11:45 AM CDT Respiratory Rate - - Height 1.702 m (5' 7") 01/06/2011 2:08 PM CDT Weight 150.2 kg (331 lb 2.1 oz) 01/06/2011 2:08 PM CDT Body Mass Index 51.85 01/06/2011 2:08 PM CDT Oxygen Saturation 95% 01/08/2011 11:45 AM CDT Plan of Care Health Maintenance Due Date Last Done Comments Physical (Comprehensive) 1974 Exam Pertussis Vaccine 1978 Tetanus Vaccine 1984 Cervical Cancer Screening 1988 Breast Cancer Screening 2007 Influenza Vaccine 04/08/2017 Results from Last 3 Months Not on file
[2016-11-23 12:43] VITALS: BP 153/72; PULSE 89; RESP 20; TEMP 99.2; O2SAT 93
[2016-11-23 12:44] VITALS: Ht 170.2 cm; Wt 153.1 kg
[2016-11-23] MEDS ORDERED: KETAMINE 500mg/10ml INJECTION ONE (13:05)
[2016-11-23] MEDS ORDERED: PROPOFOL 500mg 50 ML IV ONE ×2 (13:14→14:19)
[2016-11-23] MEDS ORDERED: FENTANYL 100mcg/2ml INJECTION ONE ×2 (13:17→14:20)
[2016-11-23] MEDS ORDERED: MIDAZOLAM 2mg/2ml INJECTION ONE (13:18)
[2016-11-23 13:28] LABS: EOSINOPHILS # (AUTO) 0.1 T/MM3 (0-0.5); EOSINOPHILS % (AUTO) 2.4 % (0-4); HCT - HEMATOCRIT 26.5 % (36-46); HGB - HEMOGLOBIN 8.4 GM/DL (12-16); IMMATURE GRANULOCYTE # (AUTO) 0.01 T/MM3 (0.00-0.03); IMMATURE GRANULOCYTE % (AUTO) 0.5 % (0.0-0.5); LYMPHOCYTES # (AUTO) 0.4 T/MM3 (1-4.8); LYMPHOCYTES % (AUTO) 17.7 % (23-45); MEAN CORPUSCULAR HGB CONC(MCHC 31.7 GM/DL (31-37); MEAN CORPUSCULAR VOLUME 88.3 UM3 (80-100); MEAN PLATELET VOLUME 8.7 UM3 (9.4-12.4); MONOCYTES # (AUTO) 0.2 T/MM3 (0-0.8); MONOCYTES % (AUTO) 7.2 % (0-9.0); NEUTROPHILS #(AUTO)-ABSOLUTE 1.5 T/MM3 (1.8-7.7); NEUTROPHILS % (AUTO) 72.2 % (33-66); WBC - WHITE BLOOD COUNT 2.1 T/MM3 (4.5-11.0)
[2016-11-23] MEDS ORDERED: IOHEXOL 300 MG/ML 50ml INJECTION ONE (13:40)
[2016-11-23 13:43] LABS: ANION GAP 13 MEQ/L (5-15); BUN/CREATININE RATIO 17 RATIO (6-26); CALCIUM 9.2 MG/DL (8.4-10.2); CHLORIDE 102 MEQ/L (98-107); CO2 - CARBON DIOXIDE 30 MEQ/L (22-30); CREATININE 0.9 MG/DL (0.7-1.2); GLOMERULAR FILTRATION RATE 67; GLUCOSE 106 MG/DL (65-110); POTASSIUM 4.5 MEQ/L (3.6-5); SODIUM 145 MEQ/L (134-144)
--- NOTE | 2016-11-23 13:43 | ANESPREOP ---
Anesthesia Record Date and Time DATE: 11/23/16 TIME: 13:41 Pre-Op Diagnosis cervical cancer Proposed Surgical Procedure T&O INSERTION #1 NPO since: 2199 Allergies: Coded Allergies: Penicillins (Verified Allergy, Mild, VOMITING, 11/23/16) erythromycin base (Verified Allergy, Mild, RASH, 11/23/16) Ht/Wt/BMI Height: 5 ' 7.00 " Weight: 153.100 kg BMI: 52.9 kg/m2 Vital Signs Date Time Temp Pulse Resp B/P Pulse Ox O2 Delivery O2 Flow Rate FiO2 11/23/16 12:43 99.2 89 20 153/72 93 Room Air Medications Bupropion HCl (Bupropion HCl Sr) 150 Mg Tablet.er, 1 TAB PO BID, (Reported) Last Taken: on 11/22/16 1000 Carbamazepine (Tegretol) 200 Mg Tablet, 1 TAB PO BID, (Reported) Last Taken: on 11/23/16 0700 Dulaglutide (Trulicity) 1.5 Mg/0.5 Ml Pen.injctr, (Reported) Last Taken: on 11/17/16 07 Furosemide (Furosemide) 20 Mg Tablet, 1 TAB PO DAILY, (Reported) Last Taken: on 11/23/16 07 Gabapentin (Gabapentin) 100 Mg Capsule, 1 CAP PO TID, (Reported) Last Taken: on 11/23/16 07 Insulin Glargine,Hum.rec.anlog (Lantus Solostar ) 1 Unit Pen, (Reported) Last Taken: on 11/23/16 07 Levothyroxine Sodium (Levothyroxine Sodium) 25 Mcg Tablet, 1 TAB PO DAILY, (Reported) Last Taken: on 11/23/16699 Lisinopril (Lisinopril) 10 Mg Tablet, 1 TAB PO DAILY, (Reported) Last Taken: on 11/22/16 07 Metformin HCl (Metformin HCl) 1,000 Mg Tablet, 1 TAB PO BID, (Reported) Last Taken: on 11/18/16 0700 Metoprolol Succinate (Metoprolol Succinate) 50 Mg Tab.er.24h, 1 TAB PO DAILY, (Reported) Last Taken: on 11/23/16 07 Omeprazole (Omeprazole) 40 Mg Capsule.dr, 1 CAP PO BID, (Reported) Last Taken: on 11/23/16 0700 Currently on Beta Dina: Yes Beta Dina Last Taken: 0700 11/23/16 Medical/Surgical History Anesthesia PMH: Reports: *Diabetes, *Hypertension, COPD, Cancer (CERVICAL), Obesity, Pneumonia (LAST 2010), Seizures (NEUROLOGICAL SEIZURE JUN 2016-FROM ZINC POSIONING), Sleep Apnea, Thyroid Disease, Denies: Anesthesia Reactions (NO AIRWAY ISSUES), Arthritis, Blood Transfusion Reac, Clotting Problems, Glaucoma, Malignant Hyperthermia, Renal Disease Smoking Status: Current every day smoker Has pt. smoked today?: Yes # of Packs per Day: 1 # of Years: 20 Use Chewing Tobacco?: No Second Hand Exposure: No Substance Use Type: does not use Alcohol Intake: none HX of Last Menstrual Period: SEP 2016 Past Surgical History Orthopedic Surgeries: Abdominal Surgeries: Genitourinary Surgeries: Cardiac Surgeries: Endocrine Surgeries: Reproductive Surgeries: Yes - SLEVE PLACEMENT Neurological Surgeries: Ear Surgeries: Nose Surgeries: Throat Surgeries: Yes - TONSILLECTOMY Other Surgeries: Yes - PORT PLACEMENT Anesthesia Adverse Reactions: FOUND none Pertinent Findings Laboratory Tests 11/23/16 13:19 EKG Rhythm: Sinus Rhythm Physical Exam Respiratory: Wheezing Cardiovascular: FOUND Regular rate, rhythm, FOUND No murmur Airway Assessment Mallampati Score: IV TMD: 3 Fingerbreadths Neck Extension: Fair Teeth: Upper Dentures, Lower Dentures Overall Assessment: May Be Diff Mask Vent., May Be Diff Intubation ASA: 3 Plan Anesthesia Plan: TIVA, LMA Discussion Discussed risks/options/alternatives of anesthesia and questions answered. Patient consents. Nursing pain assessment noted. Present: Spouse Attestation Statement Prior to the delivery of any anesthetic medication, I examined the patient, developed the plan, obtained the patient's consent and discussed the risk and benefits of the procedure with the patient/guardian. DANIS MANZANO I PIPELINE GANG SUPERVISOR Nov 23, 2016 13:43
[2016-11-23] MEDS ORDERED: KETOROLAC 30mg/ml INJECTION ONE (14:31)
[2016-11-23 14:36] VITALS: BP 128/71; PULSE 91; RESP 22; TEMP 97.6; O2SAT 92
[2016-11-23] MEDS ORDERED: ONDANSETRON 4mg/2ml INJECTION IV PRN (14:45)
[2016-11-23] MEDS: HYDROMORPHONE 2mg/ml INJECTION IV PRN ×2 (14:46→14:57)
[2016-11-23 14:50] VITALS: BP 135/70; PULSE 90; RESP 23; O2SAT 95
[2016-11-23 15:05] VITALS: BP 147/82; PULSE 86; RESP 20; O2SAT 93
--- NOTE | 2016-11-23 15:15 | NUR ---
TRANSFER PT TO IMAGING FOR CT PER CART ACCOMPANIED BY RN. RN REMAINS WITH PT THROUGHOUT CT SCAN.
--- NOTE | 2016-11-23 15:15 | NUR ---
PAC SALINE LOCKED PORT-A-CATH SALINE LOCKED AND LEFT ACCESSED UPON DISCHARGE FROM SCU PER DOCTOR'S ORDER
--- NOTE | 2016-11-23 15:30 | ANESPO ---
Post-Op Note Date 11/23/16 Time: 15:29 Status Pt Participated in Evaluation: Pt participated by phone Vital Signs Date Time Temp Pulse Resp B/P Pulse Ox O2 Delivery O2 Flow Rate FiO2 11/23/16 14:57 20 11/23/16 14:50 90 135/70 95 Nasal Cannula 4.00 11/23/16 14:36 97.6 Respiratory Function: Airway patent, Regular respirations Cardiovascular Function: Regular pulse Mental Status: Alert/oriented Pain Level Intensity: 3 Hydration: Taking po fluids Complications during Recovery None apparent Follow-Up Instructions Instructions Per Surgeon DANIS MANZANO CRNA Nov 23, 2016 15:30
--- NOTE | 2016-11-23 15:41 | NUR ---
TRANSFER TRANSFER OF CARE TO [facility]. REPORT GIVEN TO ERI FARIA RN AND MATHEW WALKERRT. PT TO CANCER CENTER PER CART ACCOMPANIED BY ERI FARIA RN AND LAURITA WALKER. SHAILESH PATENT.
--- NOTE | 2016-11-23 15:54 | DI ---
Indication: ITS.REASON: VERIFY APPLICATOR PLACEMENT AND R/O POSTOP COMPLICATION PROCEDURE: CT PELVIS W/O CONTRAST: Encounter: Initial Comparison: None Technique: Axial noncontrast CT imaging through the pelvis with coronal and sagittal two-dimensional reformats. Automated Exposure Control and Iterative Reconstruction dose reducing techniques were utilized. Findings: Tandem and ovoid device appears appropriately positioned with the tandem extending through the endometrial canal. No evidence of uterine perforation. Quispe catheter is present within the contrast filled bladder. Body habitus creates significant attenuation artifact. Bony structures are unremarkable. Impression: Radiation therapy treatment device in place without evidence of immediate complication. .
--- NOTE | 2016-11-23 17:46 | GSDISC ---
General Date Date DATE: 11/23/16 TIME: 17:36 Attending Physician Trinity Frausto MD Admitting Physician Trinity Frausto MD Consulting Physician Discharge Diagnosis: (1) Cervical carcinoma Procedures Tandem and ovoid insertion with exam under anesthesia. Laboratory Laboratory Laboratory Tests Test 11/23/16 13:19 White Blood Count 2.1T/MM3 Red Blood Count 3.00M/MM3 Hemoglobin 8.4GM/DL Hematocrit 26.5% Mean Corpuscular Volume 88.3UM3 Mean Corpuscular Hemoglobin 28.0UUG Mean Corpuscular Hemoglobin Concent 31.7GM/DL RDW Standard Deviation 75.2FL Platelet Count 159T/MM3 Mean Platelet Volume 8.7UM3 Immature Granulocyte % (Auto) 0.5% Neutrophils (%) (Auto) 72.2% Lymphocytes (%) (Auto) 17.7% Monocytes (%) (Auto) 7.2% Eosinophils (%) (Auto) 2.4% Basophils (%) (Auto) 0.0% Absolute Immature Granulocyte (auto 0.01T/MM3 Absolute Neutrophils (auto) 1.5T/MM3 Absolute Lymphocytes (auto) 0.4T/MM3 Absolute Monocytes (auto) 0.2T/MM3 Absolute Eosinophils (auto) 0.1T/MM3 Absolute Basophils (auto) 0.0T/MM3 Turbidity < 20 Sodium Level 145MEQ/L Potassium Level 4.5MEQ/L Chloride Level 102MEQ/L Carbon Dioxide Level 30MEQ/L Anion Gap 13MEQ/L Blood Urea Nitrogen 15.0MG/DL Creatinine 0.9MG/DL Glomerular Filtration Rate Calc 67 BUN/Creatinine Ratio 17RATIO Glucose Level 106MG/DL Calculated Osmolality 280MOSM/KG Calcium Level 9.2MG/DL Icterus Index < 2 Chemistry Specimen Hemolysis < 15 Hospital Course Patient prepped and draped in standard fashion. Because of body habitus, position in stirrups and operating table took more time. Once best position chosen, exam under anesthesia showed cervix placed ventrally on the vagina like a chandelier with the vaginal canal extending abnormally long without clear fornices. No parametrial abnormality was noted. Patient had rectal and cystocele as well as redundant vaginal tissue. Besides the external and internal hemorrhoids, there was prolapsement of rectum. Visualization of cervix was not possible given the position of the cervix and surrounding engulfment of vaginal tissue. Sleeve os however was able to be identified with insertion of 15 degree tandem. The ovoids could not be placed ventrally since they would be exposing more bladder tissue to radioactivity and therefore there was an attempt to stabilize them parallel to vaginal floor in a neutral position. The geometry of the tandem and ovoids was extremely unusual given the patients anatomical variation. She tolerated placement well. Quispe was placed with Hypaque in balloon. Rectal tube placed for CT contrast with great difficulty given the circumference of her perineum and prolapsement of tissues including rectum. Sustainability of tube is doubtful. Patient dismissed to recovery in good condition. Home Meds Reported Medications Metoprolol Succinate (Metoprolol Succinate) 50 Mg Tab.er.24h, 1 TAB PO DAILY, # 30 11/22/16 Bupropion HCl (Bupropion HCl Sr) 150 Mg Tablet.er, 1 TAB PO BID, #60 11/22/16 Furosemide (Furosemide) 20 Mg Tablet, 1 TAB PO DAILY, #30 11/22/16 Dulaglutide (Trulicity) 1.5 Mg/0.5 Ml Pen.injctr, #2 11/22/16 Carbamazepine (Tegretol) 200 Mg Tablet, 1 TAB PO BID 11/22/16 Omeprazole (Omeprazole) 40 Mg Capsule.dr, 1 CAP PO BID, #60 11/22/16 Metformin HCl (Metformin HCl) 1,000 Mg Tablet, 1 TAB PO BID, #60 11/22/16 Lisinopril (Lisinopril) 10 Mg Tablet, 1 TAB PO DAILY, #30 11/22/16 Levothyroxine Sodium (Levothyroxine Sodium) 25 Mcg Tablet, 1 TAB PO DAILY, #30 11/22/16 Insulin Glargine,Hum.rec.anlog (Lantus Solostar) 1 Unit Pen, #15 11/22/16 Gabapentin (Gabapentin) 100 Mg Capsule, 1 CAP PO TID, #90 11/22/16 Discharge Disposition Dismissed to recovery in good condition. TRINITY FRAUSTO MD Nov 23, 2016 17:46
== END 2016-11-23 15:41 | disposition home or self-care (01) ==
LOC: SCU 11:48
PROVIDERS: ATTEND Radiology Radiation Oncology
DX: C53.8 Malignant neoplasm of overlapping sites of cervix uteri (principal); N81.6 Rectocele; N81.10 Cystocele, unspecified; N89.8 Other specified noninflammatory disorders of vagina; K62.3 Rectal prolapse; K64.4 Residual hemorrhoidal skin tags; K64.8 Other hemorrhoids; E66.01 Morbid (severe) obesity due to excess calories; Z68.43 Body mass index [BMI] 50.0-59.9, adult; D64.81 Anemia due to antineoplastic chemotherapy; D69.59 Other secondary thrombocytopenia; G62.0 Drug-induced polyneuropathy; T45.1X5A Adverse effect of antineoplastic and immunosuppressive drugs, initial encounter; E11.42 Type 2 diabetes mellitus with diabetic polyneuropathy; F41.9 Anxiety disorder, unspecified; Z79.4 Long term (current) use of insulin; Z79.899 Other long term (current) drug therapy
CPT/HCPCS: 57155; 72192; 80048; 85025; J1170; J1885; J2250; J3010; J7030; Q9967

== ENCOUNTER 2016-12-09 08:41 | Day surgery (SDC) | payer OTHER ==
[~2016-12-09] VITALS: Ht 170.2 cm; Wt 151.8 kg
[~2016-12-09 08:41] MED LIST changes: +IOHEXOL 300 MG/ML 50ml INJECTION ONE; +LIDOCAINE 1% (10mg/ml) 2ml SDV INJ ONE; +NORMAL SALINE 1,000 ML IV ONE; +NORMAL SALINE 1,000 ML IV PRN; -ONDA-56 PO; -PROC10TA PO
--- OUTSIDE RECORDS SUMMARY | 2016-12-09 08:47 | XMS REPORT | Continuity of Care Document ---
Author Author Chelsey Barbosa Address Unknown Phone Unavailable Care Team Providers Care Foil Cutter Name Role Phone [employer] Unavailable Unavailable Problems [...] Care Discharge Diagnosis: Apnea, sleep 11/24/2015 Diagnosis [facility] Diabetes mellitus (disorder) Active Problem 06/19/2016 [facility], [facility] Diabetic foot ulcer (disorder) Active Problem 06/19/2016 [facility], [facility] Hypertensive disorder, systemic arterial (disorder) Active Problem 06/19/2016 [facility], PROFESSIONAL SERVICES [facility] Hypothyroidism (disorder) Active Problem 06/19/2016 [facility], [facility]ESSION[facility] Menorrhagia (finding) Active Problem 06/19/2016 [facility], [facility] Morbid obesity (disorder) Active Problem 06/19/2016 [facility], [facility] Neuropathy (disorder) Active Problem 06/19/2016 [facility], [facility] Obstructive sleep apnea syndrome (disorder) Active Problem 06/19/2016 [facility], PROFESSIONAL SERVICES [facility] Seizure disorder (disorder) Active Problem 06/19/2016 [facility], [facility] Vitamin D deficiency (disorder) Active Problem 2015 [facility], PROFESSIONAL SERVICES [facility] Fatigue (finding) Active Problem 06/19/2016 [facility] Discharge Diagnosis: Chronic ulcer of left foot Diagnosis 12/26/2015 [facility] Medications Medication Details Route Status Patient Instructions Ordering Provider Order Date Source levothyroxine 25 mcg (0.025 mg) oral tablet </br>1 Tab, Q24H, PO, 30 Tab, 6 Number of Refills, 6, Route to Pharmacy Electronically, [facility], [id number], TAB Active [facility] Lancets </br>Lancets, See Instructions, 100 EA, Used to test blood glucose QID, 6 Number of Refills, 6, Route to Pharmacy Electronically, [facility], Instructions Replace Required Details, [id number] Active [facility] ferrous sulfate 325 mg (65 mg elemental iron) oral tablet </br>1 Tab, BID, PO, 60 Tab, 0 Number of Refills, 0, Route to Pharmacy Electronically, [facility], [id number] Active [facility] Vitamin D2 50,000 intl units oral capsule </br>1 Cap, 2x per Wk, PO, 8 Cap, 2 Number of Refills, 2, Route to Pharmacy Electronically, [facility], [id number] Active [facility] Lantus Claireostar Pen </br>SQ, Maintenance, 11/24/15 14:35:43 CDT, 0 Number of Refills Active [facility] Humalog KwikPen </br>20 units, QPM, SQ, 0 Number of Refills Active [facility] aAccu check strips </br>aAccu check strips, See Instructions, 100 EA, Used to check blood glucose QID, 6 Number of Refills, 6, Route to Pharmacy Electronically, [facility] , Instructions Replace Required Details, [id number] Active [facility] Carbamazepine 200 MG Oral Tablet </br>1 Tab, TID, PO, 90 Tab, 3 Number of Refills, 3, Route to Pharmacy Electronically, [facility], [id number], TAB Active [facility] Regranex </br>1.25 [...] of Refills, 6, Route to Pharmacy Electronically, [facility], [id number] , TAB Active [facility] lisinopril 10 mg oral tablet </br>1 Tab, daily, PO, 30 Tab, 6 Number of Refills, 6, Route to Pharmacy Electronically, [facility], [id number], TAB Active [facility] 3 ML Insulin Glargine 100 UNT/ML Prefilled Syringe [Lantus] </br>40 unit, AT BEDTIME, SQ, 10 mL, 3 Number of Refills, 3, Route to Pharmacy Electronically, [facility], [id number], CLAIRE Active [facility] 200 ACTUAT Albuterol 0.09 MG/ACTUAT Metered Dose Inhaler [ProAir HFA] </br>2 Puff(s), QID, INH, 1 EA, Maintenance, 04/14/16 16:22:56 CDT, 2 Number of Refills, 2, Route to Pharmacy Electronically, [facility], [id number] Active [facility] Levofloxacin 500 MG Oral Tablet [Levaquin] </br>1 Tab, Q24H, PO, 7 Day(s), 7 Tab, 04/21/16, 0 Number of Refills, 0, Route to Pharmacy Electronically, [facility], [id number] Inactive [facility] 24 HR Metoprolol Tartrate 50 MG Extended Release Tablet </br>1 Tab, Q24H, PO, 30 Tab, 3 Number of Refills, 3, Route to Pharmacy Electronically, [facility], [id number] Active [facility] Mupirocin 20 MG/ML Topical Cream </br>1 Apply, BID, TOP, 30 gm, 12/26/15, Acute, Apply a thin film to sores, 15:53:39 CDT, 1 Number of Refills, 1, Print Requisition, CRM
</br> Special Instructions: Apply a thin film to sores Inactive [facility] 0.5 ML dulaglutide 1.5 MG/ML Prefilled Syringe [Trulicity] </br>0.75 mg, qWeek, SQ, 4 EA, 1 Number of Refills, 1, Route to Pharmacy Electronically, [facility], [id number] Active [facility] Care 0.5 ML dulaglutide 3 MG/ML Prefilled Syringe [Trulicity] </br>1.5 mg, qWeek, SQ, 4 Amp, 6 Number of Refills, 6, Route to Pharmacy Electronically, [facility], [id number] Active [facility] Acetaminophen 325 MG / Hydrocodone Bitartrate 5 MG Oral Tablet [Lortab] </br>1 Tab, TID, PO, 20 Tab, 07/19/16, Acute, 06/18/16 12:11:03 INVESTMENT BANKING MANAGER, 0 Number of Refills, 0, Print Requisition Inactive [facility] Allergies, Adverse Reactions, Alerts Substance Category Reaction Severity Reaction type Status Date Reported Comments Source Erythromycin Assertion Severe Drug allergy Rash, swelling of mouth [facility], PROFESSION[facility] Penicillin G Assertion Severe Drug allergy [facility], PROFESSION[facility] Immunizations Immunization Date Given Site Status Last Updated Comments Source No data available for this section No data available for this section [facility], [facility] Results Order Name Results Value Reference Range Date Interpretation Comments Source Office/Clinic Notes Office/Clinic Notes [facility] Care at [address] [address] PATIENT: JUAN DIEGO SHI MR #: [id number] : 1965 DATE SEEN: 06/18/2016 Chief Complaint [...] as needed for that. TR: GRANT JORGE#: [id number] [Electronically Signed on 06.23.2016 11:23 AM]
Katelyn Kyle MD
</br> 06/18/2016 [Electronically Signed on 06.23.2016 11:23 AM] Katelyn Kyle MD [facility] Office/Clinic Notes Office/Clinic Notes [facility] at [address] [address] [address] [place] [id number] PATIENT: JUAN DIEGO SHI MR #: [id number] : 1965 DATE SEEN: 06/17/2016 Chief Complaint [...] or, if it is cancer, referral to INTERNAL MEDICINE DOCTOR Oncology. TR: [id number] JORGE#: [id number] [Electronically Signed on 06.22.2016 09:07 PM]
Johnny [...] Care Surgical Pathology Report Surgical Pathology Report [facility] [place] [facility] [address] [place] [address] NAME: JUAN DIEGO SHI ADMIT 06/17/2016 DATE: DISCHARGE DATE: 06/17/2016 ENC: [id number] ORDER PHYS: Johnny Ramos DO : 1965AGE: 51 years SEX:Female ATTEND Johnny Ramos DO PHYS: LOCATION: [facility] Pathology Reports ACCESSION: COLLECTED DATE/TIME: RECEIVED DATE/TIME: PATHOLOGIST: [id number] 06/17/2016 10:00 INVESTMENT BANKING MANAGER 06/18/2016 09:39 INVESTMENT BANKING MANAGER Seth Gomez MD Surgical Pathology Report - [...] The specimen consists of multiple irregular shape cvb-csg-ickvd soft tissue aggregating to 1.5 x 1.0 x 0.2 cm. Completely submitted as is in cassette B1. [facility]/VN Professional and technical services performed by [facility] [employer] [facility] at [address] [address]. /VN 06.18.2016 11:12 NAME: JUAN DIEGO SHI [facility] [id number] ID: ENC: [id number] ROOM: 06/17/2016 [facility] CHEM12 eGFR () >60 mL/min >=60 2015 N Estimated GFR for an calculated using MDRD study equation. Result Verified by Discern Expert.
[facility] CHEM12 Albumin Level 3.5 gm/ dL 3.4 - 5.0 05/13/2016 N [facility] A1C eAverage Glu 123 05/13/2016 NA Estimated average glucose has a linear relationship with Hgb A1c and is intended to simplify the discussion of glycemic control with patients.
[facility] Office/Clinic Notes Office/Clinic Notes [facility] at [facility] [address] [place] [id number] PATIENT: JUAN DIEGO SHI MR #: [id number] : 1965 DATE SEEN: 05/13/2016 Chief Complaint [...] Refills : 6 Orders this visit: CHEM12 ([facility]) HgbA1C Follow Up 1 Month -Request [...] 50 mg twice daily. TR: GRANT JORGE#: [id number] [Electronically Signed on 05.14.2016 11:55 AM]
Katelyn Kyle MD
</br> 05/13/2016 [Electronically Signed on 05.14.2016 11:55 AM] Katelyn Kyle MD [facility] Office/Clinic Notes Office/Clinic Notes [facility] Care at [address] [address] PATIENT: JUAN DIEGO SHI MR #: [id number] : 1965 DATE SEEN: 04/14/2016 Chief Complaint [...] the plan of care. TR: GRANT JORGE#: [id number] [Electronically Signed on 04.15.2016 01:46 PM]
Sabina [...] has been evaluated with computer
assisted technology.
FINAL DRESSING CUTTER: CATY NG(ASCP)
CT screening location: [facility]
[address] [place]
[address]
PATHOLOGIST: Ranjith Flaherty M.D., Board Certified in
Anatomic Pathology and Cytopathology.

(electronic signature)
For questions contact Anatomic Pathology Client Services at [phone]
PERFORMING SITE:

[employer] [facility]
[address]
[place] [address]
Religious Ritual Slaughterer: PER THACKER MD, CLIA : [id number]
[facility] Office/Clinic Notes Office/Clinic Notes [facility] at [address] [address] PATIENT: JUAN DIEGO SHI MR #: [id number] : 1965 DATE SEEN: 03/23/2016 Chief Complaint [...] does plan to schedule her mammogram at [facility] in the near future. Review of Systems [...] No lesions. Scant cloudy discharge noted. Vagina: [place] and moist. Cervix: No cervical motion tenderness, abnormal discharge, or mass. Uterus: Normal size. Mobile and nontender. Impression 1. Encounter for well woman exam (Z01.419). 2. Vaginal Pap smear (Z12.72). 3. Encounter for screening breast examination (Z12.39). Plan Orders this visit: PAP Reflex HPV Regarding encounter for well-woman exam to include vaginal Pap smear, Pap sent to Pathology. Ms. Shi was informed we would contact her once the results are available. Regarding encounter for screening breast exam, Ms. Shi plans to schedule her mammogram at [facility] in the near future. Ms. Shi was encouraged to schedule a routine follow up appointment with her primary care provider, Dr. Katelyn Kyle, in 1 month. She was instructed to continue all medications as prescribed. TR: [id number] JORGE#: [id number] [Electronically Signed on 03.24.2016 08:30 PM]
Sabina [...] Notes Office/Clinic Notes [facility] at [address] [address] PATIENT: JUAN DIEGO SHI MR #: [id number] : 1965 DATE SEEN: 02/25/2016 Chief Complaint [...] system(s): Constitutional, HEENT, Respiratory, Cardiovascular, GI, , INTERNAL MEDICINE DOCTOR, Integumentary, Musculoskeletal, Neurological, Hematologic, Endocrine, Psychiatric Allergies [...] (Thyroid Stim Hormone) Vitamin D Level TR: [id number] JORGE#: [id number] [Electronically Signed on 02.27.2016 04:53 AM]
Toro Copeland MD
</br> 02/25/2016 [Electronically Signed on 02.27.2016 04:53 AM] Toro Copeland MD [facility] Office/Clinic Notes Office/Clinic Notes W[facility] Care [address] [address] RE: JUAN DIEGO SHI MR #: [id number] : 1965 DATE SEEN: 02/16/2016 Juan Diego is a pleasant mba-qoxisff-rewwxptjr type 2 diabetic, who is uncontrolled at [...] Neurologic examination: Protective threshold is absent via Palmetto-Stella 5.07-g monofilament to bilateral feet. Deep tendon [...] depth ulceration, fifth digit, left foot. 3. Jrv-hjvnkcv-tpzaykyut diabetes with neuropathy, uncontrolled. Plan and procedure: [...] DOMINGO DPM DICTATED BY: Flavia Domingo. TR: [id number] DR: 02/16/2016 16:07:34 DE: 02/17/2016 02:56:15 JOB#: [id number] [Electronically Signed on 02.17.2016 09:06 AM]
Domingo, Lung K , DPM
</br> 02/16/2016 [Electronically Signed on 02.17.2016 09:06 AM] Domingo, Lung K, DPM [facility] Office/Clinic Notes Office/Clinic Notes Wound Care [address] [id number] RE: JUAN DIEGO SHI MR #: [id number] : 1965 DATE SEEN: 02-05-2016 Juan Diego is a pleasant sjc-jayxafp-cerpwtjsz type 2 diabetic, who is uncontrolled at [...] Neurologic examination: Protective threshold is absent via Palmetto-Stella 5.07-g monofilament to bilateral feet. Deep tendon [...] Full-thickness ulceration, fifth toe, left foot. 3. Dwf-hvmtnkj-ymupledjl diabetes with neuropathy, uncontrolled. Plan and procedure: [...] DPM DICTATED BY: Domingo Lung K. TR: [id number] DR: 02/05/2016 11:48:11 DE: 02/05/2016 12:22:30 JOB#: [id number] [Electronically Signed on 02.05.2016 01:48 PM]
Domingo, Lung K , DPM
</br> 02/05/2016 [Electronically Signed on 02.05.2016 01:48 PM] Domingo Lung K, DPM [facility] Office/Clinic Notes Office/Clinic Notes W[facility] Care [address] [address] RE: JUAN DIEGO SHI MR #: [id number] : 1965 DATE SEEN: 01/22/2016 Juan Diego is a pleasant xkj-hbpvxnr-rpjbzubev type 2 diabetic, which is uncontrolled at [...] Full-thickness ulceration, fifth digit, left foot. 3. Onj-obdkrwm-mxqsthuaq diabetes mellitus with neuropathy, uncontrolled. PROCEDURE: Wound [...] from Tuesday. The [facility] is [facility]. Dictated By: FLAVIA DOMINGO DPM DICTATED BY: Flavia Domingo TR: [id number] DR: 01/22/2016 12:18:11 DE: 01/22/2016 17:56:40 JOB#: [id number] [Electronically Signed on 01.23.2016 09:40 AM]
Flavia Domingo DPM
</br> 01/22/2016 [Electronically Signed on 01.23.2016 09:40 AM] Flavia Domingo K, DPM [facility] Office/Clinic Notes Office/Clinic Notes Office/Clinic Note-Physician Corrected copy Wound Care [address] [address] RE: JUAN DIEGO SHI MR #: [id number] : 1965 DATE SEEN: 01/19/2016 Juan Diego is a pleasant myc-cairnaa-wtmjcauvw type 2 diabetic, which is uncontrolled at [...] Neurologic examination: Protective threshold is absent via Palmetto-Stella 5.07-g monofilament to bilateral feet. Deep tendon [...] Full-thickness ulceration, fifth digit, left foot. 3. Hcp-opylqjb-sioufrwzn diabetes mellitus with neuropathy, uncontrolled. Prior to [...] application in the very near future. TR: [id number] DR: 01/19/2016 04:41:00 pm DE: 01/20/2016 04:18:55 am JOB#: [id number] Dictated By: LUNG K ARLETTE DOMINGO DICTATED BY: Flavia Domingo. TR: [id number] DR: 01/19/2016 16:41:00 DE: 01/20/2016 05:09:00 CR: 01/20/2016 10:30 [facility] JOB#: [id number] [Electronically Signed on 01.20.2016 10:41 AM]
Flavia Domingo , DPM
</br> 01/19/2016 [Electronically Signed on 01.20.2016 10:41 AM] Flavia Domingo, DPM [facility] Office/Clinic Notes Office/Clinic Notes W[facility] Care [address] [address] RE: JUAN DIEGO SHI MR #: [id number] : 1965 DATE SEEN: 12/29/2015 Juan Diego is a pleasant zpb-syyfihs-kspzereyd type 2 diabetic, which is uncontrolled at [...] Neurologic examination: Protective threshold is absent via Palmetto-Stella 5.07-g monofilament to bilateral feet. Deep tendon [...] DPM DICTATED BY: Chayo Flavia Keller. TR: [id number] DR: 12/29/2015 16:24:22 DE: 12/30/2015 08:49:55 JOB#: [id number] [Electronically Signed on 12.30.2015 09:03 AM]
Flavia Domingo , DPM
</br> 12/29/2015 [Electronically Signed on 12.30.2015 09:03 AM] Flavia Domingo, DPM [facility] MIKAELA Ferritin 17.3 ng/mL 3.0 - 105.0 12/26/2015 N [facility] IRON LEVEL Iron Level 31 mcg/ dL 35 - 150 12/26/2015 LOW [facility] Office/Clinic Notes Office/Clinic Notes [facility] at [address] [address] PATIENT: JUAN DIEGO SHI MR #: [id number] : 1965 DATE SEEN: 12/26/2015 Chief Complaint [...] followed by Podiatry. She was hospitalized in [place] for about a week. It looked like [...] seen Dr. Donna Sierra, the neurologist in [facility], and has been referred to their seizure [...] advised to continue to follow with the director of operations support. Regarding her hypertension, that is relatively well [...] to continue her CPAP. TR: GRANT JORGE#: [id number] [Electronically Signed on 12.30.2015 10:20 AM]
Katelyn Kyle MD
</br> 12/26/2015 [Electronically Signed on 12.30.2015 10:20 AM] Katelyn Kyle MD [facility] A1C Hgb A1c 8.1 % - <=5.6 12/26/2015 [place] Hgb A1c values
<5.7% Normal
5.7- 6.4% Increased risk for diabetes (pre-diabetes)
>6.5% Diabetes
[facility] -Auto Diff Abs Eos .21 x10^3/ uL .00 - .40 12/26/2015 N [facility] CBC with Diff NRBC% 0 /100 WBC - <=0 12/26/2015 N WBC count corrected for NRBCs present
[facility] Manual Differential Morphology Hypochrom 2 - <=0 2015 [place] [facility] P7 LDLC 81 60 - 99 12/26/2015 [facility] P7 HDL 40 mg/dL 40 - 60 12/26/2015 [facility] Care TSH TSH 6.000 uIU/mL 0.354 - 5.720 12/26/2015 [facility] VIT B12 Vit B12 Level 661 pg/ mL 180 - 914 12/26/2015 [facility] CARBM Carbamaz Level 5.4 mcg/ mL 4.0 - 12.0 12/26/2015 [facility] Office/Clinic Notes Office/Clinic Notes Patient: JUAN DIEGO [...] Ulcers-under the care of Wound Clinic at [facility], Hypertension, Hypothyroidism, Diabetic Neuropathy, and Obesity.. Review [...] these are being treated by [facility] Clinic [facility]. Integumentary: Negative. Neurologic: Alert and oriented X4, [...] list: All Problems Diabetes / SNOMED CT 622924554 / Confirmed Neuropathy / SNOMED CT 5341746022 / Confirmed Hypertension / SNOMED CT 8890331422 / Confirmed Diabetic foot ulcers / SNOMED CT 0562666281 / Confirmed Morbid obesity with BMI of 45.0-49.9, adult / SNOMED CT 967938862 / Confirmed Hypothyroidism / SNOMED CT 80862567 / Confirmed Seizure disorder due to Zinc Poisoning / SNOMED CT 508279200 / Confirmed Histories Past Medical History: No [...] Normal strength, Normal gait. Integumentary: Warm, Dry, [place]. Feet: Feet were examined with open sore [...] was 191.. Impression and Plan Diagnosis Diabetes (DDU93-SY E11.9). Diabetic foot ulcers (FYO73-CW E11.621). Hypoglycemia episodes (JIO30-RP E16.2). Hypertension (OVM70-FA I10). Hypothyroidism (MUG20-AV E03.9). Seizure disorder due to Zinc Poisoning (YTG08-EP G40.909). Orders Orders (Selected) Outpatient Orders Ordered Dietitian Consult -Request: Completed Follow Up 1 Week- Request: Office Visit Level 4 Est - 69665: Prescriptions Prescribed levothyroxine 25 mcg (0.025 mg) [...] on 12.23.2015 12:54 PM] Katelyn Kyle MD [facility] Office/Clinic Notes Office/Clinic Notes Wound Care [address] [id number] RE: JUAN DIEGO SHI MR #: [id number] : 1965 DATE SEEN: 12/22/2015 HISTORY OF PRESENT ILLNESS: Tierra is a pleasant qqf-apflzlx-ywonazzkz type 2 diabetic, who is uncontrolled at [...] depth ulceration, fifth digit, left foot. 4. Oek-gjvpfjm-iemteqore diabetes with neuropathy, uncontrolled. 5. Xerosis of [...] receiving the proposed treatment. The patient or eligibility services representative has indicated understanding and is willing [...] DOMINGO DPM DICTATED BY: Flavia Domingo. TR: [id number] DR: 12/22/2015 04:23:48 pm DE: 12/23/2015 05:08:40 am ED: 12/23/2015 8:14 [facility] JOB#: [id number] [Electronically Signed on 12.23.2015 09:13 AM]
Flavia Domingo DPM
</br> 12/22/2015 [Electronically Signed on 12.23.2015 09:13 AM] Flavia Domingo DPM [facility] Office/Clinic Notes Office/Clinic Notes Wound Care [address] [id number] RE: JUAN DIEGO SHI MR #: [id number] : 1965 DATE SEEN: 12/15/2015 HISTORY OF [...] depth ulceration anterior ankle, left foot. 5. Hbf-xkrzqbc-joeyfgzph diabetes with neuropathy, uncontrolled. PLAN AND PROCEDURE: [...] receiving the proposed treatment. The patient or eligibility services representative has indicated understanding and is willing [...] feet. 2. The patient will to [facility] for surgical shoe bilateral feet [...] this time, will be set up with [facility] for dressing changes and [facility] for Santyl. Both of them will be mailed to her in the mail. Dictated By: FLAVIA DOMINGO DPM DICTATED BY: Flavia Domingo. TR: [id number] DR: 12/15/2015 17:14:51 DE: 12/16/2015 00:20:05 JOB#: [id number] [Electronically Signed on 12.16.2015 09:14 AM]
Flavia Domingo DPM
</br> 12/15/2015 [Electronically Signed on 12.16.2015 09:14 AM] Flavia Domingo DPM [facility] Office/Clinic Notes Office/Clinic Notes [facility] [address] [place] [address], [facility] [place] [address] PATIENT: JUAN DIEGO SHI MR #: [id number] : 1965 DATE SEEN: 12/09/2015 Chief Complaint [...] now. She has spent some time in [place] with IV (intravenous) antibiotics and oral antibiotics, [...] has had the vascular studies done in [place], so we will try to get those for Dr. Domingo for her. Also we will refer her for some new x-rays of both the right and the left foot. She will not be seeing me any more, she will be following with Dr. Domingo. TR: [id number] JORGE#: [id number] [Electronically Signed on 12.13.2015 08:41 AM]
Will Trevizo DPM
</br> 12/09/2015 [Electronically Signed on 12.13.2015 08:41 AM] KarinasybilSaikatharinejalen Kong, DPM [facility] FREET4 Free T4 0.87 ng/dL 0.58 - 1.64 11/24/2015 N [facility] Office/Clinic Notes Office/Clinic Notes [facility] at [address] [address] PATIENT: JUAN DIEGO SHI MR #: [id number] : 1965 DATE SEEN: 11/24/2015 Chief Complaint Juan Diego is here today for sores on both feet since about 2 months ago. History of Present Illness This 50-year-old white female presented to the clinic with a history of sores on her foot for about 2 months. She has a recent hospital stay at [place] where she was placed on IV (intravenous) antibiotics and oral antibiotics subsequently and needing to see a director of operations support as well. Her diagnoses have been reviewed. [...] She said they had rode from the [facility] to [place] and back and she had her shoe [...] feet, partly from when she was in [facility]. On the bottom of her left foot [...] and we will have her see the director of operations support. We will have her back in about a week to reevaluate and we will get a free T4 since that was not done in the hospital. We referred her to a director of operations support here at the office. TR: [id number] JORGE#: [id number] [Electronically Signed on 11.26.2015 05:14 PM]
Toro [...] Provider ADM Date DC Date Status Source [facility] [address] [facility] [id number] EVAL LOW BACK PAIN Jodi Howluciano 10/10/2015 Active [facility] [id number] [facility] [id number] NEW/ BILATERAL FEET WOUNDS Toro Copeland Active [facility] [phone] Anju Rincon 11/24/2015 11/25/2015 [facility] [phone] [id number] [facility] [phone] pressure sores on both feet Will Trevizo 12/09/2015 Active [facility] [phone] Bruce Ayala 12/09/2015 12/10/2015 [facility] [place] [id number] [facility] [phone] Lung Domingo 12/15/2015 Active [facility] policy analyst SERVICES [facility] [phone] Rosanna Mendoza 12/15/2015 12/23/2015 PROFESSIONAL SERVICES [facility] ( Outpatient) [id number] BOTH FEET / DM Lung Domingo 2015 Active [facility] Clinic (Outpatient) [phone] Lung Domingo 12/15/2015 12/16/2015 [facility] [address] [phone] Lung Domingo 12/22/2015 Active [facility] [address] [place] [address] [phone] EST/ FOLLOW UP PER DR. TAQUERIA Spence 2015 Active [facility] ( Outpatient) [id number] BOTH FEET / DM Lung Domingo 2015 Active [facility] [phone] Swathi Nguyen 12/22/2015 [facility] Clinic (Outpatient) [id number] Lung Domingo 12/22/2015 12/23/2015 [facility] [phone] [id number] [facility] [phone] chaka Spence 12/25/2015 Active [facility] [phone] Sabina Spence 12/25/2015 [facility] [address] [place] [address] [phone] EST/ FOLLOW UP PER SABINA Kyle 12/26/2015 Active [facility] [phone] Zurdo Perez 12/26/2015 [facility] [address] [phone] Lung Domingo 12/29/2015 Active [facility] [id number] BOTH FEET / DM Lung Domingo 2015 Active [facility] Clinic (Outpatient) [id number] Lung Domingo 12/29/2015 12/30/2015 [facility] [place] [phone] [facility] [phone] Lung Domingo 01/19/2016 Active [facility] [id number] BOTH FEET / DM Lung Domingo 2015 Active [facility] W[facility] (Out[facility] [id number] Lung Domingo 201501/20/2016 [facility] [address] [facility] [phone] Lung Domingo 01/22/2016 Active [facility] [id number] BOTH FEET / DM Lung Domingo 2015 Active [facility] Wound [facility] (Outpatient) [id number] Lung Domingo 201501/23/2016 [facility] [address] [place] [address] [facility] [phone] EST/ 1 MONTH FOLLOW UP Hesamodin Borhani 01/23/2016 Active [facility] [address] [facility] [phone] Lung Domingo 02/05/2016 Active [facility] energy policy analyst SERVICES [facility] [phone] Hesamodin Borhani 02/05/2016 PROFESSIONAL SERVICES [facility] ( Outpatient) [id number] LEFT FOOT / CAST / DM Lung Domingo Active [facility] ([facility]patient) [id number] Lung Domingo 201502/06/2016 [facility] [address] Clinic [id number] Lung Domingo 02/16/2016 02/23/2016 Active [facility] [id number] LEFT FOOT / DM Lung Domingo 201502/16/2016 Active [facility] W[facility]patient) [id number] Lung Domingo 201502/17/2016 [facility] [address] [place] [address] [phone] STOOL SAMPLE Sabina Bebe 02/20/2016 Discharged [facility] [place] [facility] [id number] Sabina Bebe 02/20/2016 [facility] [id number] LEFT FOOT / DM Lung Domingo 02/23/2016 Active [facility] [address] [place] [address] [phone] EST/ TRISTAN Copeland 02/25/2016 02/25/2016 Active [facility] [phone] Toro Copeland 02/25/2016 [facility] [id number] [facility] [id number] PAP Sabina Spence 03/23/2016 Active [facility] [phone] Sabina Spence 03/23/2016 [facility] Pre- Clinic [phone] RIGHT FOOT TOE AND HEEL Lung Domingo 2015 Active [facility] [phone] [id number] [facility] [phone] EST/ HEAD COLD Sabina Spence 04/14/2016 Active [facility] [phone] Sabina Alfonso 04/14/2016 [facility] [id number] [facility] [phone] EST/ 3 MONTH Hesamodin Borhani 05/13/2016 Active [facility] [phone] Hesamodin Borhani 05/13/2016 [facility] 8080 [facility] [phone] REFER PCP ABNORMAL PAP- PER GERRI Ramos 06/17/2016 Active [facility] [phone] Johnny Ramos 06/17/2016 [facility] [phone] [facility] [phone] EST/ONE MONTH FOLLOW UP UP Hesamodin Borhani 06/18/2016 Active [facility] [id number] Hesamodin Borhani 06/18/2016 [facility] [phone] [phone] [facility] [id number] LABS Hesamodin Borhani 07/26/2016 Active [facility] [phone] [phone] [facility] [phone] EST/ 6 WEEKS Hesamodin Borhani 2015 Active [facility] Procedures Procedure Code Date Perfomer Comments Source No data available for this section [facility] Plan of Care Social History Assessment and Plan Family History Value Date Source Advance Directives Order Name Results Value Date Source
--- OUTSIDE RECORDS SUMMARY | 2016-12-09 08:53 | XMS REPORT | Continuity of Care Document ---
Author Author [facility] Organization [facility] Address Unknown Phone Unavailable Support Name Relationship Address Phone MENA KELLEY MD Caregiver [address] [place] [address] Unavailable JAYESH SHI Next Of Kin [address] [place] [address] Insurance Providers Guarantor Josy Shi Address [address] [place] [address] [place] [address] Email [email or web address] [email or web address] [employer] Policy Number [id number] Subscriber's Name Jayesh Shi Relationship 01 Spouse Group Number [id number] Advance Directives Directive Response Recorded Date/Time Ordered Resuscitation Status Full Code 11/22/16 1:57pm Resuscitation Documents on File No 11/23/16 1:26pm DPOA for Healthcare Only No 11/23/16 1:26pm Living Will No 11/23/16 1:26pm Problems No problem information available. Medications Current Home Medications Medication Dose Units Route Directions Days Qty Instructions Start Date Bupropion Hcl (Bupropion Hcl Sr) 150 Mg Tablet.er 1 Tab Oral Twice A Day 60 11/22/16 Carbamazepine (Tegretol) 200 Mg Tablet 1 Tab Oral Twice A Day Dulaglutide (Trulicity) 1.5 Mg/0.5 Ml Pen.injctr 2 Furosemide 20 Mg Tablet 1 Tab Oral Daily 30 11/22/16 Gabapentin 100 Mg Capsule 1 Cap Oral Three Times A Day 90 11/22/16 Insulin Glargine,Hum.rec.anlog (Lantus Solostar) 1 Unit Pen 15 11/22/16 Levothyroxine Sodium 25 Mcg Tablet 1 Tab Oral Daily 30 11/22/16 Lisinopril 10 Mg Tablet 1 Tab Oral Daily 30 11/22/16 Metformin Hcl 1,000 Mg Tablet 1 Tab Oral Twice A Day 60 11/22/16 Metoprolol Succinate 50 Mg Tab.er.24h 1 Tab Oral Daily 30 11/22/16 Omeprazole 40 Mg Capsule.dr 1 Cap Oral Twice A Day 60 11/22/16 Social History Social History Problem Response Recorded Date/Time Onset Date Status Chewing Tobacco Status No 11/22/2016 9:58am Not Applicable Not Applicable Hx Substance Use No 11/22/2016 9:58am Not Applicable Not Applicable Hx Alcohol Use No 11/22/2016 9:58am Not Applicable Not Applicable Has the pt used tobacco in the last 12 months No 11/22/2016 9:58am Not Applicable Not Applicable Query Response Start Date Stop Date Smoking Status Never smoker Hospital Discharge Instructions No hospital discharge instructions. Plan of Care Discharge Date 11/23/16 3:41pm Prescriptions See Medication Section Functional Status Query Response Date Recorded Ability to complete ADL's impeded by No change November 23, 2016 1:26pm Allergies, Adverse Reactions, Alerts Allergen Type Severity Reaction Status Last Updated Penicillin Allergy Mild VOMITING Active 11/23/16 Erythromycin base Allergy Mild RASH Active 11/23/16 Immunizations Query Response on File Recorded Date/Time Hx Influenza Vaccination No 11/22/16 9:58am Hx Pneumococcal Vaccination No 11/22/16 9:58am Hx Influenza Vaccination No 11/22/16 9:58am Vital Signs Acute Vital Signs Vital Response Date/Time Temperature (Fahrenheit) 97.6 deg F (96.8 - 99.1) 11/23/2016 2:36pm Temperature (Calculated Celsius) 36.35038 degrees C (36.0 - 37.3) 11/23/2016 2:36pm Temperature Source Axillary 11/23/2016 2:36pm Pulse Rate (adult) 86 bpm (60 - 100) 11/23/2016 3:05pm Respiratory Rate 20 breaths/min (10 - 20) 11/23/2016 3:05pm O2 Sat by Pulse Oximetry 93 % (90 - 100) 11/23/2016 3:05pm Oxygen Delivery Method Nasal Cannula 11/23/2016 3:05pm Oxygen Flow Rate 4.00 L/min 11/23/2016 3:05pm Blood Pressure 147/82 mm Hg 11/23/2016 3:05pm Blood Pressure Source Automatic Cuff 11/23/2016 3:05pm Height (Feet) 5 feet 11/23/2016 12:44pm Height (Inches) 7.00 inches 11/23/2016 12:44pm Weight (Kilograms) 153.100 kg 11/23/2016 12:44pm Body Mass Index (BMI) 52.9 11/23/2016 12:44pm Results Laboratory Results Test Name Result Units Flags Reference Collection Date/Time Result Date/ Time Comments White Blood Count 2.1 T/MM3 L 4.5-11.0 11/23/2016 1:11/23/2016 1: 28pm Red Blood Count 3.00 M/MM3 L 4.00-5.20 11/23/2016 1:11/23/2016 1: 28pm Hemoglobin 8.4 GM/DL L 12-16 11/23/2016 1:11/23/2016 1:28pm Hematocrit 26.5 % L 36-46 11/23/2016 1:11/23/2016 1:28pm Mean Corpuscular Volume 88.3 UM3 80-100 11/23/2016 1:11/23/2016 1: 28pm Mean Corpuscular Hemoglobin 28.0 UUG 26-34 11/23/2016 1:2016 1:28pm Mean Corpuscular Hemoglobin Concent 31.7 GM/DL 31-37 11/23/2016 1:11/23/2016 1:28pm RDW Standard Deviation 75.2 FL H 36.9-50.2 11/23/2016 1:11/23/2016 1:28pm Platelet Count 159 T/MM3 130-400 11/23/2016 1:11/23/2016 1:28pm Mean Platelet Volume 8.7 UM3 L 9.4-12.4 11/23/2016 1:11/23/2016 1: 28pm Neutrophils (%) (Auto) 72.2 % H 33-66 11/23/2016 1:11/23/2016 1: 28pm Lymphocytes (%) (Auto) 17.7 % L 23-45 11/23/2016 1:11/23/2016 1: 28pm Monocytes (%) (Auto) 7.2 % 0-9.0 11/23/2016 1:11/23/2016 1:28pm Eosinophils (%) (Auto) 2.4 % 0-4 11/23/2016 1:11/23/2016 1:28pm Basophils (%) (Auto) 0.0 % 0-2 11/23/2016 1:11/23/2016 1:28pm Immature Granulocyte % (Auto) 0.5 % 0.0-0.5 11/23/2016 1:2016 1:28pm Absolute Neutrophils (auto) 1.5 T/MM3 L 1.8-7.7 11/23/2016 1:2016 1:28pm Absolute Lymphocytes (auto) 0.4 T/MM3 L 1-4.8 11/23/2016 1:2016 1:28pm Absolute Monocytes (auto) 0.2 T/MM3 0-0.8 11/23/2016 1:11/23/2016 1:28pm Absolute Eosinophils (auto) 0.1 T/MM3 0-0.5 11/23/2016 1:2016 1:28pm Absolute Basophils (auto) 0.0 T/MM3 0-0.2 11/23/2016 1:11/23/2016 1:28pm Absolute Immature Granulocyte (auto 0.01 T/MM3 0.00-0.03 11/23/2016 1: 11/23/2016 1:28pm Icterus Index < 2 0-7 11/23/2016 1:11/23/2016 1:43pm Chemistry Specimen Hemolysis < 15 0-25 11/23/2016 1:11/23/2016 1 :43pm 0-25: Specimen Exhibited No Hemolysis. Turbidity < 20 0-20 11/23/2016 1:11/23/2016 1:43pm Sodium Level 145 MEQ/L H 134-144 11/23/2016 1:11/23/2016 1:43pm Potassium Level 4.5 MEQ/L 3.6-5 11/23/2016 1:11/23/2016 1:43pm Chloride Level 102 MEQ/L 98-107 11/23/2016 1:11/23/2016 1:43pm Carbon Dioxide Level 30 MEQ/L 22-30 11/23/2016 1:pm 11/23/2016 1: 43pm Anion Gap 13 MEQ/L 5-15 11/23/2016 1:11/23/2016 1:43pm Blood Urea Nitrogen 15.0 MG/DL 7-17 11/23/2016 1:11/23/2016 1: 43pm Creatinine 0.9 MG/DL 0.7-1.2 11/23/2016 1:11/23/2016 1:43pm BUN/Creatinine Ratio 17 RATIO 6-26 11/23/2016 1:19pm 11/23/2016 1:43pm Glomerular Filtration Rate Calc 67 11/23/2016 1:11/23/2016 1: 43pm Glucose Level 106 MG/DL 65-110 11/23/2016 1:11/23/2016 1:43pm Calculated Osmolality 280 MOSM/KG 261-280 11/23/2016 1:11/23/2016 1:43pm Calcium Level 9.2 MG/DL 8.4-10.2 11/23/2016 1:pm 11/23/2016 1:43pm Name: JOSY SHI Unit #: [id number] : [id number] Sex: F Admit Date: Loc / Svc: SCU Discharge Date: DIAGNOSTIC IMAGING REPORT Report #: [id number] [facility] Paige LILI Indication: ITS.REASON: VERIFY APPLICATOR PLACEMENT AND R/O POSTOP COMPLICATION PROCEDURE: CT PELVIS W/O CONTRAST: Encounter: Initial Comparison: None Technique: Axial noncontrast CT imaging through the pelvis with coronal and sagittal two-dimensional reformats. Automated Exposure Control and Iterative Reconstruction dose reducing techniques were utilized. Findings: Tandem and ovoid device appears appropriately positioned with the tandem extending through the endometrial canal. No evidence of uterine perforation. Quispe catheter is present within the contrast filled bladder. Body habitus creates significant attenuation artifact. Bony structures are unremarkable. Impression: Radiation therapy treatment device in place without evidence of immediate complication. . Procedures Procedure Status Date Provider(s) Brachytherapy Completed 11/23/16 MENA KELLEY MD Encounters Encounter Location Arrival/Admit Date Discharge/Depart Date Attending Provider Departed [facility] Day [facility] 11/23/16 11:48am 11/23/16 3 :41pm MENA KELLEY MD
--- OUTSIDE RECORDS SUMMARY | 2016-12-09 08:53 | XMS REPORT | Continuity of Care Document ---
Author Author [facility] Organization [facility] Address Unknown Phone Unavailable Care Team Providers Care Circular Shear Operator Name Role Phone Jacinda Mi Primary Care Physician [phone] Source Comments Some departments are not documenting in the electronic medical record. If you do not see the information that you expected, contact Release of Information in the Health Information Management department at [phone] for further assistance in locating additional records.[facility] Active Allergies and Adverse Reactions Allergen [...]
[2016-12-09 09:10] VITALS: Ht 170.2 cm; Wt 151.8 kg
[2016-12-09 09:11] VITALS: BP 139/65; PULSE 88; RESP 17; TEMP 98.7; O2SAT 90
[2016-12-09] MEDS ORDERED: ONDA-56 PO (09:29)
[2016-12-09 09:30] LABS: HCT - HEMATOCRIT 28.8 % (36-46); HGB - HEMOGLOBIN 9.2 GM/DL (12-16); MEAN CORPUSCULAR HGB 29.2 UUG (26-34); MEAN CORPUSCULAR HGB CONC(MCHC 31.9 GM/DL (31-37); MEAN CORPUSCULAR VOLUME 91.4 UM3 (80-100); MEAN PLATELET VOLUME 8.8 UM3 (9.4-12.4); RED BLOOD COUNT 3.15 M/MM3 (4.00-5.20); WBC - WHITE BLOOD COUNT 5.8 T/MM3 (4.5-11.0)
[2016-12-09] MEDS ORDERED: PROC10TA PO (09:30)
[2016-12-09 09:40] LABS: ANION GAP 12 MEQ/L (5-15); BUN/CREATININE RATIO 14 RATIO (6-26); CALCIUM 9.5 MG/DL (8.4-10.2); CHLORIDE 99 MEQ/L (98-107); CO2 - CARBON DIOXIDE 31 MEQ/L (22-30); CREATININE 0.9 MG/DL (0.7-1.2); GLOMERULAR FILTRATION RATE 67; GLUCOSE 136 MG/DL (65-110); POTASSIUM 4.6 MEQ/L (3.6-5); SODIUM 142 MEQ/L (134-144)
[2016-12-09 09:54] LABS: ANISOCYTOSIS 3+; BAND NEUTROPHILS # 0.5 T/MM3; EOSINOPHILS # (MANUAL) 0.1 T/MM3 (0-0.5); LYMPHOCYTES # (MANUAL) 0.5 T/MM3 (1-4.8); METAMYELOCYTES # 0.1 T/MM3; MONOCYTES # (MANUAL) 0.3 T/MM3 (0-0.8); NEUTROPHILS #(MANUAL)-ABSOLUTE 4.4 T/MM3 (1.8-7.7); NUCLEATED RED BLOOD CELLS 2; POIKILOCYTOSIS 1+; POLYCHROMASIA 2+; TOTAL CELLS COUNTED 100 %
[2016-12-09] MEDS ORDERED: IOHEXOL 300 MG/ML 50ml INJECTION ONE (11:11)
[2016-12-09 11:26] VITALS: BP 101/52; PULSE 80; RESP 14; TEMP 98.8; O2SAT 90
[2016-12-09] MEDS: HYDROMORPHONE 2mg/ml INJECTION IV PRN ×2 (11:31→11:41)
--- NOTE | 2016-12-09 11:35 | ANESPREOP ---
Anesthesia Record Date and Time DATE: 12/09/16 TIME: 1020 Proposed Surgical Procedure T&O #2 Allergies: Coded Allergies: Penicillins (Verified Allergy, Mild, VOMITING, 12/09/16) erythromycin base (Verified Allergy, Mild, RASH, 12/09/16) Ht/Wt/BMI Height: 5 ' 7.00 " Weight: 151.800 kg BMI: 52.4 kg/m2 Vital Signs Date Time Temp Pulse Resp B/P Pulse Ox O2 Delivery O2 Flow Rate FiO2 12/09/16 11:31 17 12/09/16 09:11 98.7 88 139/65 90 Room Air Medications Inpatient Medications Current Medications Medications (Trade) Dose Ordered Sig/Merlin Start Time Stop Time Status Last Admin Dose Admin Sodium Chloride 1,000 ml @ 30 mls/hr Q24H PRN 12/07/16 07:00 12/08/16 12:07 DC Sodium Chloride (Normal Saline IV) 1,000 ml @ 30 mls/hr Q24H PRN 12/09/16 07:00 Hydromorphone HCl (Dilaudid) Dilaudid 0.5-1 mg IVP every 10 minutes... Q10M PRN 12/09/16 11:30 UNV 12/09/16 11:31 0.5 MG Bupropion HCl (Bupropion HCl Sr) 150 Mg Tablet.er, 1 TAB PO BID, (Reported) Last Taken: on 12/08/16 2000 Carbamazepine (Tegretol) 200 Mg Tablet, 1 TAB PO BID, (Reported) Last Taken: on 12/09/16 0800 Dulaglutide (Trulicity) 1.5 Mg/0.5 Ml Pen.injctr , (Reported) Last Taken: on 12/01/16 0700 Furosemide (Furosemide) 20 Mg Tablet, 1 TAB PO DAILY, (Reported) Last Taken: on 12/08/16 1400 Gabapentin (Gabapentin) 100 Mg Capsule, 1 CAP PO TID, (Reported) Last Taken: on 12/08/16 0200 Insulin Glargine,Hum.rec.anlog (Lantus Solostar ) 1 Unit Pen, (Reported) Last Taken: on 12/09/16 0500 Levothyroxine Sodium (Levothyroxine Sodium) 25 Mcg Tablet, 1 TAB PO DAILY, (Reported) Last Taken: on 12/09/16 0800 Lisinopril (Lisinopril) 10 Mg Tablet, 1 TAB PO DAILY, (Reported) Last Taken: on 12/08/161999 Metformin HCl (Metformin HCl) 1,000 Mg Tablet, 1 TAB PO BID, (Reported) Last Taken: on 12/07/161999 Metoprolol Succinate (Metoprolol Succinate) 50 Mg Tab.er.24h, 1 TAB PO DAILY, (Reported) Last Taken: on 12/09/16 08 Omeprazole (Omeprazole) 40 Mg Capsule.dr, 1 CAP PO BID, (Reported) Last Taken: on 12/09/16 08 Ondansetron HCl (Ondansetron HCl) 8 Mg Tablet, PO, (Reported) Last Taken: on 12/09/16 08 Prochlorperazine Maleate (Prochlorperazine Maleate) 10 Mg Tablet, 10 MG PO QID, (Reported) Take 1 tablet, by mouth, 4 times a day. Last Taken: on 12/09/16 0500 Currently on Beta Dina: Yes Beta Dina Last Taken: METOPROLOL 50MG 12/09/16 AT 0800 Medical/Surgical History Anesthesia PMH: Reports: *Diabetes, *Hypertension, COPD, Cancer (CERVICAL), Obesity, Pneumonia (LAST 2010), Seizures (NEUROLOGICAL SEIZURE JUN 2016-FROM ZINC POSIONING), Sleep Apnea, Thyroid Disease, Denies: Anesthesia Reactions (NO AIRWAY ISSUES), Arthritis, Blood Transfusion Reac, Clotting Problems, Glaucoma, Malignant Hyperthermia, Renal Disease Smoking Status: Current every day smoker Has pt. smoked today?: No # of Packs per Day: 1 # of Years: 20 Use Chewing Tobacco?: No Second Hand Exposure: No Substance Use Type: does not use Alcohol Intake: none HX of Last Menstrual Period: 2016 PER PAST ADMIT Past Surgical History Orthopedic Surgeries: Abdominal Surgeries: Genitourinary Surgeries: Cardiac Surgeries: Endocrine Surgeries: Reproductive Surgeries: Yes - SLEVE PLACEMENT,T&O INSERTIONS Neurological Surgeries: Ear Surgeries: Nose Surgeries: Throat Surgeries: Yes - TONSILLECTOMY Other Surgeries: Yes - PORT PLACEMENT Anesthesia Adverse Reactions: FOUND none Family Hx of Anesthesia Advers: none Hx of Motion Sickness: No Pertinent Findings Laboratory Tests 12/09/16 09:22 Test 12/09/16 09:22 Human Chorionic Gonadotropin, Qual Negative (NEGATIVE) EKG Rhythm: Sinus Rhythm Physical Exam Respiratory: Lungs clear (diminished) Cardiovascular: FOUND Regular rate, rhythm Airway Assessment Mallampati Score: III TMD: 3 Fingerbreadths Neck Extension: Good Overall Assessment: May Be Diff Mask Vent., May Be Diff Intubation ASA: 3 Plan Anesthesia Plan: TIVA Discussion Discussed risks/options/alternatives of anesthesia and questions answered. Patient consents. Nursing pain assessment noted. Present: Spouse Attestation Statement Prior to the delivery of any anesthetic medication, I examined the patient, developed the plan, obtained the patient's consent and discussed the risk and benefits of the procedure with the patient/guardian. MAGGY LACY CRNA December 09, 2016 11:35
[2016-12-09 11:40] VITALS: BP 109/57; PULSE 76; RESP 17; O2SAT 89
[2016-12-09 11:45] VITALS: BP 103/56; PULSE 75; RESP 17; O2SAT 92
[2016-12-09 12:00] VITALS: BP 114/60; PULSE 73; RESP 18; O2SAT 94
--- NOTE | 2016-12-09 12:04 | NUR ---
TRANSFER PT TO IMAGING FOR CT PER CART ACCOMPANIED BY RN. RN REMAINS WITH PT THROUGHOUT CT SCAN.
--- NOTE | 2016-12-09 12:25 | NUR ---
TRANSFER TRANSFER OF CARE TO [facility]. REPORT GIVEN TO MATHEW WALKERRT. PT TO CANCER CENTER PER CART ACCOMPANIED BY LAURITA WALKER. SHAILESH PATENT.
--- NOTE | 2016-12-09 13:43 | DI ---
Indication: ITS.REASON: VERIFY APPLICATOR PLACEMENT AND R/O POSTOP COMPLICATION PROCEDURE: CT PELVIS W/O CONTRAST: Encounter: Subsequent Comparison: November 23, 2016 Technique: Axial noncontrast CT imaging through the pelvis with coronal and sagittal two-dimensional reformats. Automated Exposure Control and Iterative Reconstruction dose reducing techniques were utilized. Findings: Tandem and ovoid device appears appropriately positioned with the tandem extending through the endometrial canal. No evidence of uterine perforation. Quispe catheter is present within the contrast filled bladder. Body habitus creates significant attenuation artifact. Bony structures are unremarkable. Impression: Radiation therapy treatment device in place without evidence of immediate complication. .
--- NOTE | 2016-12-09 13:47 | ANESPO ---
Post-Op Note Date 12/09/16 Time: 12:45 Status Pt Participated in Evaluation: Pt participated in person Vital Signs Date Time Temp Pulse Resp B/P Pulse Ox O2 Delivery O2 Flow Rate FiO2 12/09/16 12:00 73 18 114/60 94 Nasal Cannula 2.00 12/09/16 11:26 98.8 Respiratory Function: Airway patent Cardiovascular Function: Regular pulse Mental Status: Alert/oriented Pain Level Intensity: 1 Hydration: Taking po fluids Complications during Recovery None apparent Follow-Up Instructions Instructions Per Surgeon MAGGY LACY CRNA December 09, 2016 13:47
--- NOTE | 2016-12-09 16:30 | GSDISC ---
General Date Date DATE: 12/09/16 TIME: 16:24 Attending Physician Trinity Frausto MD Admitting Physician Trinity Frausto MD Consulting Physician Discharge Diagnosis: (1) Cervical carcinoma Procedures Tandem and ovoid placement with exam under anesthesia. Laboratory Laboratory Laboratory Tests Test 12/09/16 09:22 White Blood Count 5.8T/MM3 Red Blood Count 3.15M/MM3 Hemoglobin 9.2GM/DL Hematocrit 28.8% Mean Corpuscular Volume 91.4UM3 Mean Corpuscular Hemoglobin 29.2UUG Mean Corpuscular Hemoglobin Concent 31.9GM/DL RDW Standard Deviation 84.3FL Platelet Count 176T/MM3 Mean Platelet Volume 8.8UM3 Immature Granulocyte % (Auto) % Neutrophils (%) (Auto) % Lymphocytes (%) (Auto) % Monocytes (%) (Auto) % Eosinophils (%) (Auto) % Basophils (%) (Auto) % Absolute Immature Granulocyte (auto T/MM3 Absolute Neutrophils (auto) T/MM3 Absolute Lymphocytes (auto) T/MM3 Absolute Monocytes (auto) T/MM3 Absolute Eosinophils (auto) T/MM3 Absolute Basophils (auto) T/MM3 Neutrophils % (Manual) 76.0% Band Neutrophils % 9.0% Lymphocytes % (Manual) 8.0% Monocytes % (Manual) 5.0% Eosinophils % (Manual) 1.0% Metamyelocytes % 1.0% Absolute Neutrophils (Manual) 4.4T/MM3 Band Neutrophils # 0.5T/MM3 Lymphocytes # (Manual) 0.5T/MM3 Monocytes # (Manual) 0.3T/MM3 Eosinophils # (Manual) 0.1T/MM3 Metamyelocytes # 0.1T/MM3 Nucleated Red Blood Cells 2 Polychromasia 2+ Poikilocytosis 1+ Anisocytosis 3+ Red Cell Morphology Comment Abnormal Turbidity < 20 Sodium Level 142MEQ/L Potassium Level 4.6MEQ/L Chloride Level 99MEQ/L Carbon Dioxide Level 31MEQ/L Anion Gap 12MEQ/L Blood Urea Nitrogen 13.0MG/DL Creatinine 0.9MG/DL Glomerular Filtration Rate Calc 67 BUN/Creatinine Ratio 14RATIO Glucose Level 136MG/DL Calculated Osmolality 275MOSM/KG Calcium Level 9.5MG/DL Icterus Index < 2 Human Chorionic Gonadotropin, Qual Negative Chemistry Specimen Hemolysis < 15 Hospital Course Patient was prepped and draped in standard fashion. Quispe placed with Hypaque in balloon. Today's exam shows no signs of recurrence. Rectocele and cystocele very prominent. Redundant vaginal tissue. Cervix continues to be in an anterior position without detectable fornices. The end of the vagina is parallel to cervix, where ovoids have been placed. Separate vaginal and rectal packing placed to decrease dose to structures. Patient tolerated procedure well and was dismissed to recovery in good condition. Dr. Green was contacted concerning her ANC trend. Since she is allergic to both penicillin and erythromycin and asymptomatic, he will be consulting with her on Tuesday, repeating her CBC, and determining whether prophylaxis with antibiotic will be necessary. Home Meds Reported Medications Prochlorperazine Maleate (Prochlorperazine Maleate) 10 Mg Tablet, 10 MG PO QID for NAUSEA, TAB Take 1 tablet, by mouth, 4 times a day. 12/09/16 Ondansetron HCl (Ondansetron HCl) 8 Mg Tablet, PO for NAUSEA &/OR VOMITING 12/09/16 Metoprolol Succinate (Metoprolol Succinate) 50 Mg Tab.er.24h, 1 TAB PO DAILY, # 30 11/22/16 Bupropion HCl (Bupropion HCl Sr) 150 Mg Tablet.er, 1 TAB PO BID, #60 11/22/16 Furosemide (Furosemide) 20 Mg Tablet, 1 TAB PO DAILY, #30 11/22/16 Dulaglutide (Trulicity) 1.5 Mg/0.5 Ml Pen.injctr, #2 11/22/16 Carbamazepine (Tegretol) 200 Mg Tablet, 1 TAB PO BID 11/22/16 Omeprazole (Omeprazole) 40 Mg Capsule.dr, 1 CAP PO BID, #60 11/22/16 Metformin HCl (Metformin HCl) 1,000 Mg Tablet, 1 TAB PO BID, #60 11/22/16 Lisinopril (Lisinopril) 10 Mg Tablet, 1 TAB PO DAILY, #30 11/22/16 Levothyroxine Sodium (Levothyroxine Sodium) 25 Mcg Tablet, 1 TAB PO DAILY, #30 11/22/16 Insulin Glargine,Hum.rec.anlog (Lantus Solostar) 1 Unit Pen, #15 11/22/16 Gabapentin (Gabapentin) 100 Mg Capsule, 1 CAP PO TID, #90 11/22/16 Discharge Disposition Dismissed to recovery in good condition. TRINITY FRAUSTO MD December 09, 2016 16:30
== END 2016-12-09 12:25 | disposition home or self-care (01) ==
LOC: SCU 08:41
PROVIDERS: ATTEND Radiology Radiation Oncology
DX: C53.8 Malignant neoplasm of overlapping sites of cervix uteri (principal); N81.6 Rectocele; N81.10 Cystocele, unspecified; N89.8 Other specified noninflammatory disorders of vagina; E66.01 Morbid (severe) obesity due to excess calories; Z68.43 Body mass index [BMI] 50.0-59.9, adult; D64.81 Anemia due to antineoplastic chemotherapy; D69.59 Other secondary thrombocytopenia; G62.0 Drug-induced polyneuropathy; T45.1X5A Adverse effect of antineoplastic and immunosuppressive drugs, initial encounter; F41.9 Anxiety disorder, unspecified; Z79.4 Long term (current) use of insulin; Z79.899 Other long term (current) drug therapy; Z88.0 Allergy status to penicillin; Z88.3 Allergy status to other anti-infective agents
CPT/HCPCS: 36415; 57155; 72192; 80048; 84703; 85025; J1170; J7030; Q9967

== ENCOUNTER → 2016-12-09 | Outpatient (CLI) | payer OTHER ==
[~2016-12-09] MED LIST changes: -IOHEXOL 300 MG/ML 50ml INJECTION ONE; -LIDOCAINE 1% (10mg/ml) 2ml SDV INJ ONE; -NORMAL SALINE 1,000 ML IV ONE; +ONDA-56 PO; +PROC10TA PO
[2016-12-09 17:34] LABS: BLOOD, URINE NEGATIVE (NEGATIVE); COLOR,URINE YELLOW (YELLOW); LEUKOCYTE ESTERASE ,URINE NEGATIVE (NEGATIVE); NITRITE,URINE NEGATIVE (NEGATIVE); UROBILINOGEN,URINE 0.2 EU/DL (NORMAL)
== END ==
LOC: LABN 17:23
PROVIDERS: ATTEND Radiology Radiation Oncology
DX: R30.0 Dysuria (principal)
CPT/HCPCS: 81003

== ENCOUNTER 2016-12-14 13:08 | Day surgery (SDC) | payer OTHER ==
[~2016-12-14] VITALS: Ht 170.2 cm; Wt 147.0 kg
[~2016-12-14 13:08] MED LIST changes: -IOHEXOL 300 MG/ML 50ml INJECTION ONE; -NORMAL SALINE 1,000 ML IV PRN; +ONDA-56 PO; +PROC10TA PO
--- OUTSIDE RECORDS SUMMARY | 2016-12-14 13:13 | XMS REPORT | Continuity of Care Document ---
Author Author [facility] Organization [facility] Address Unknown Phone Unavailable Care Team Providers Care Utilities Estimator And Drafter Name Role Phone Jacinda Mi Primary Care Physician [phone] Source Comments Some departments are not documenting in the electronic medical record. If you do not see the information that you expected, contact Release of Information in the Health Information Management department at [phone] for further assistance in locating additional records.[facility] Active Allergies and Adverse Reactions Allergen [...]
--- OUTSIDE RECORDS SUMMARY | 2016-12-14 13:13 | XMS REPORT | Continuity of Care Document ---
Author Author [facility] Organization [facility] Address Unknown Phone Unavailable Support Name Relationship Address Phone MENA KELLEY MD Caregiver [address] [place] [address] Unavailable JAYESH SHI Next Of Kin [address] [place] [address] Insurance Providers Guarantor Josy Shi Address [address] [place] [address] [place] [address] Email [email or web address] Payer [employer] Policy Number [id number] Subscriber's Name Jayesh Shi Relationship 01 Spouse Group Number [id number] Advance Directives Directive Response Recorded Date/Time Ordered Resuscitation Status Full Code 11/24/16 2:47pm Resuscitation Documents on File Yes 12/09/16 10:08am DPOA for Healthcare Only No 12/09/16 10:08am Living Will No 12/09/16 10:08am Problems Active Problems Medical Problem Onset Date Status Cervical carcinoma Unknown Medications Current Home Medications Medication Dose Units [...] Cap Oral Twice A Day 60 11/22/16 Ondansetron Hcl 8 Mg Tablet Oral for Nausea &/Or Vomiting 11/22 Prochlorperazine Maleate 10 Mg Tablet 10 Mg Oral Four Times Daily for Nausea Take 1 tablet, by mouth, 4 times a day. 12/09/16 Social History Social History Problem Response Recorded Date/Time Onset Date Status Hx Substance Use No 11/22/2016 9:58am Not Applicable Not Applicable Hx Alcohol Use No 11/22/2016 9:58am Not Applicable Not Applicable Has the pt used tobacco in the last 12 months No 11/22/2016 9:58am Not Applicable Not Applicable Query Response Start Date Stop Date Smoking Status Unknown if ever smoked Hospital Discharge Instructions No hospital discharge instructions. Plan of Care Discharge Date 12/09/16 12:25pm Prescriptions See Medication Section Functional Status Query Response Date Recorded Ability to complete ADL's impeded by No change December 09, 2016 10:08am Allergies, Adverse Reactions, Alerts Allergen Type Severity Reaction Status Last Updated Penicillin Allergy Mild VOMITING Active 12/09/16 Erythromycin base Allergy Mild RASH Active 12/09/16 Immunizations Query Response on File Recorded Date/Time Hx Influenza Vaccination No 11/22/16 9:58am Hx Pneumococcal Vaccination No 11/22/16 9:58am Hx Influenza Vaccination No 11/22/16 9:58am Vital Signs Acute Vital Signs Vital Response Date/Time Temperature (Fahrenheit) 98.8 deg F (96.8 - 99.1) 12/09/2016 11:26am Temperature (Calculated Celsius) 37.04307 degrees C (36.0 - 37.3) 12/09/2016 11:26am Temperature Source Axillary 12/09/2016 11:26am Pulse Rate (adult) 73 bpm (60 - 100) 12/09/2016 12:00pm Respiratory Rate 18 breaths/min (10 - 20) 12/09/2016 12:00pm O2 Sat by Pulse Oximetry 94 % (90 - 100) 12/09/2016 12:00pm Oxygen Delivery Method Nasal Cannula 12/09/2016 12:00pm Oxygen Flow Rate 2.00 L/min 12/09/2016 12:00pm Blood Pressure 114/60 mm Hg 12/09/2016 12:00pm Blood Pressure Source Automatic Cuff 12/09/2016 12:00pm Height (Feet) 5 feet 12/09/2016 9:10am Height (Inches) 7.00 inches 12/09/2016 9:10am Weight (Kilograms) 151.800 kg 12/09/2016 9:10am Body Mass Index (BMI) 52.4 12/09/2016 9:10am Results Laboratory Results Test Name Result Units Flags Reference Collection Date/Time Result Date/ Time Comments Neutrophils (%) (Auto) 72.2 % H 33-66 11/23/2016 1:pm 11/23/2016 1: 28pm Lymphocytes (%) (Auto) 17.7 % [...] Granulocyte (auto 0.01 T/MM3 0.00-0.03 11/23/2016 1: 19pm 11/23/2016 1:28pm White Blood Count 5.8 T/MM3 4.5-11.0 12/09/2016 9:12/09/2016 9: 33am Red Blood Count 3.15 M/MM3 L 4.00-5.20 12/09/2016 9:2212/09/2016 9: 33am Hemoglobin 9.2 GM/DL L 12-16 12/09/2016 9:12/09/2016 9:33am Hematocrit 28.8 % L 36-46 12/09/2016 9:2212/09/2016 9:33am Mean Corpuscular Volume 91.4 UM3 80-100 12/09/2016 9:12/09/2016 9: 33am Mean Corpuscular Hemoglobin 29.2 UUG 26-34 12/09/2016 9:2016 9:33am Mean Corpuscular Hemoglobin Concent 31.9 GM/DL 31-37 12/09/2016 9:12/09/2016 9:33am RDW Standard Deviation 84.3 FL H 36.9-50.2 12/09/2016 9:12/09/2016 9:33am Platelet Count 176 T/MM3 130-400 12/09/2016 9:12/09/2016 9:33am Mean Platelet Volume 8.8 UM3 L 9.4-12.4 12/09/2016 9:12/09/2016 9: 33am Neutrophils % (Manual) 76.0 % H 33-66 12/09/2016 9:12/09/2016 9: 55am Band Neutrophils % 9.0 % H 0-6 12/09/2016 9:12/09/2016 9:55am Lymphocytes % (Manual) 8.0 % L 23-45 12/09/2016 9:12/09/2016 9: 55am Monocytes % (Manual) 5.0 % 0-9.0 12/09/2016 9:12/09/2016 9:55am Eosinophils % (Manual) 1.0 % 0-4 12/09/2016 9:12/09/2016 9:55am Metamyelocytes % 1.0 % H 0-0 12/09/2016 9:12/09/2016 9:55am Band Neutrophils # 0.5 T/MM3 12/09/2016 9:12/09/2016 9:55am Absolute Neutrophils (Manual) 4.4 T/MM3 1.8-7.7 12/09/2016 9:12/09 9:55am Lymphocytes # (Manual) 0.5 T/MM3 L 1-4.8 12/09/2016 9:12/09/2016 9: 55am Monocytes # (Manual) 0.3 T/MM3 0-0.8 12/09/2016 9:22am 12/09/2016 9: 55am Eosinophils # (Manual) 0.1 T/MM3 0-0.5 12/09/2016 9:12/09/2016 9: 55am Metamyelocytes # 0.1 T/MM3 12/09/2016 9:12/09/2016 9:55am Nucleated Red Blood Cells 2 12/09/2016 9:12/09/2016 9:55am Red Cell Morphology Comment ABNORMAL 12/09/2016 9:12/09/2016 9 :55am Anisocytosis 3+ 12/09/2016 9:12/09/2016 9:55am Poikilocytosis 1+ 12/09/2016 9:12/09/2016 9:55am Polychromasia 2+ 12/09/2016 9:12/09/2016 9:55am Icterus Index < 2 0-7 12/09/2016 9:12/09/2016 9:40am Chemistry Specimen Hemolysis < 15 0-25 12/09/2016 9:12/09/2016 9 :40am 0-25: Specimen Exhibited No Hemolysis. Turbidity < 20 0-20 12/09/2016 9:12/09/2016 9:40am Sodium Level 142 MEQ/L 134-144 12/09/2016 9:12/09/2016 9:40am Potassium Level 4.6 MEQ/L 3.6-5 12/09/2016 9:12/09/2016 9:40am Chloride Level 99 MEQ/L 98-107 12/09/2016 9:12/09/2016 9:40am Carbon Dioxide Level 31 MEQ/L H 22-30 12/09/2016 9:22am 12/09/2016 9: 40am Anion Gap 12 MEQ/L 5-15 12/09/2016 9:2212/09/2016 9:40am Blood Urea Nitrogen 13.0 MG/DL 7-12/09/2016 9:2212/09/2016 9: 40am Creatinine 0.9 MG/DL 0.7-1.2 12/09/2016 9:2212/09/2016 9:40am BUN/Creatinine Ratio 14 RATIO 6-12/09/2016 9:22am 12/09/2016 9:40am Glomerular Filtration Rate Calc 67 12/09/2016 9:2212/09/2016 9: 40am Glucose Level 136 MG/DL H 65-110 12/09/2016 9:2212/09/2016 9:40am Calculated Osmolality 275 MOSM/KG 261-280 12/09/2016 9:22am 12/09/2016 9:40am Calcium Level 9.5 MG/DL 8.4-10.2 12/09/2016 9:22am 12/09/2016 9:40am Procedures Procedure Status Date Provider(s) Insert uteri tandem/ovoids Completed 11/23/[address] pelvis w/o dye Completed 11/23/16 Metabolic panel total ca Completed 11/23/16 Complete cbc w/auto diff wbc Completed 11/23/16"INJECTION, HYDROMORPHONE, UP TO 4 MG" Completed 11/23/16"INJECTION, HYDROMORPHONE, UP TO 4 MG" Completed 11/23/16"INJECTION, KETOROLAC TROMETHAMINE, PER 15 MG" Completed 11/23/16"INJECTION, MIDAZOLAM HYDROCHLORIDE, PER 1 MG" Completed 11/23/16"INJECTION, FENTANYL CITRATE, 0.1 MG" Completed 11/23/16"INJECTION, FENTANYL CITRATE, 0.1 MG" Completed 11/23/16"INFUSION, NORMAL SALINE SOLUTION , 1000 CC" Completed 11/23/16"LOW OSMOLAR CONTRAST MATERIAL, 300-399 MG/ML IODINE C Completed "LOW OSMOLAR CONTRAST MATERIAL, 300-399 MG/ML IODINE C Completed Brachytherapy Completed 12/09/16 MENA KELLEY MD Encounters Encounter Location Arrival/Admit Date Discharge/Depart Date Attending Provider Departed [facility] 12/09/16 8:41am 12/09/16 12 :25pm MENA KELLEY MD Departed [facility] 11/23/16 11:48am 11/23/16 3 :41pm MENA KELLEY MD
[2016-12-14 13:22] VITALS: Ht 170.2 cm; Wt 147.0 kg
[2016-12-14 13:23] VITALS: BP 110/57; PULSE 84; RESP 16; TEMP 99.4; O2SAT 87
--- NOTE | 2016-12-14 13:41 | ANESPREOP ---
Anesthesia Record Date and Time DATE: 12/14/16 TIME: 13:38 Pre-Op Diagnosis Cervical Cancer Proposed Surgical Procedure TANDEM AND OVOID INSERTION 3 NPO since: Midnight Allergies: Coded Allergies: Penicillins (Verified Allergy, Mild, VOMITING, 12/09/16) erythromycin base (Verified Allergy, Mild, RASH, 12/09/16) Ht/Wt/BMI Height: 5 ' 7.00 " Weight: 147.000 kg BMI: 50.8 kg/m2 Vital Signs Date Time Temp Pulse Resp B/P Pulse Ox O2 Delivery O2 Flow Rate FiO2 12/14/16 13:23 99.4 84 16 110/57 87 Room Air Medications Bupropion HCl (Bupropion HCl Sr) 150 Mg Tablet.er, 1 TAB PO BID, (Reported) Carbamazepine (Tegretol) 200 Mg Tablet, 1 TAB PO BID, (Reported) Dulaglutide (Trulicity) 1.5 Mg/0.5 Ml Pen.injctr, (Reported) Furosemide (Furosemide) 20 Mg Tablet, 1 TAB PO DAILY, (Reported) Gabapentin (Gabapentin) 100 Mg Capsule, 1 CAP PO TID, (Reported) Insulin Glargine,Hum.rec.anlog (Lantus Solostar) 1 Unit Pen, (Reported) Levothyroxine Sodium (Levothyroxine Sodium) 25 Mcg Tablet, 1 TAB PO DAILY, ( Reported) Lisinopril (Lisinopril) 10 Mg Tablet, 1 TAB PO DAILY, (Reported) Metformin HCl (Metformin HCl) 1,000 Mg Tablet, 1 TAB PO BID, (Reported) Metoprolol Succinate (Metoprolol Succinate) 50 Mg Tab.er.24h, 1 TAB PO DAILY, ( Reported) Omeprazole (Omeprazole) 40 Mg Capsule.dr, 1 CAP PO BID, (Reported) Ondansetron HCl (Ondansetron HCl) 8 Mg Tablet, PO, (Reported) Prochlorperazine Maleate (Prochlorperazine Maleate) 10 Mg Tablet, 10 MG PO QID, (Reported) Take 1 tablet, by mouth, 4 times a day. Currently on Beta Dina: Yes Beta Dina Last Taken: 729 Medical/Surgical History Anesthesia PMH: Reports: *Diabetes, *Hypertension, COPD, Cancer (CERVICAL), Obesity, Pneumonia (LAST 2010), Reflux, Seizures (NEUROLOGICAL SEIZURE JUN 2016- FROM ZINC POSIONING), Sleep Apnea, Thyroid Disease, Denies: Anesthesia Reactions (NO AIRWAY ISSUES), Arthritis, Blood Transfusion Reac, Clotting Problems, Glaucoma, Malignant Hyperthermia, Renal Disease Smoking Status: Current every day smoker Has pt. smoked today?: No # of Packs per Day: 1 # of Years: 20 Use Chewing Tobacco?: No Second Hand Exposure: No Substance Use Type: does not use Alcohol Intake: none HX of Last Menstrual Period: 2016 Past Surgical History Orthopedic Surgeries: Abdominal Surgeries: Genitourinary Surgeries: Cardiac Surgeries: Endocrine Surgeries: Reproductive Surgeries: Yes - SLEVE PLACEMENT,T&O INSERTIONS Neurological Surgeries: Ear Surgeries: Nose Surgeries: Throat Surgeries: Yes - TONSILLECTOMY Other Surgeries: Yes - PORT PLACEMENT Anesthesia Adverse Reactions: FOUND none Family Hx of Anesthesia Advers: none Pertinent Findings EKG Rhythm: Sinus Rhythm Physical Exam Respiratory: Lungs clear Cardiovascular: FOUND Regular rate, rhythm Airway Assessment Mallampati Score: II TMD: 3 Fingerbreadths Neck Extension: Fair Overall Assessment: May Be Diff Mask Vent., May Be Diff Intubation ASA: 3 Plan Anesthesia Plan: LMA, GETA Discussion Discussed risks/options/alternatives of anesthesia and questions answered. Patient consents. Nursing pain assessment noted. Present: Family Member Attestation Statement Prior to the delivery of any anesthetic medication, I examined the patient, developed the plan, obtained the patient's consent and discussed the risk and benefits of the procedure with the patient/guardian. ELEN FRANCOIS CRNA December 14, 2016 13:41
[2016-12-14] MEDS ORDERED: FENTANYL 100mcg/2ml INJECTION ONE (14:32)
[2016-12-14] MEDS ORDERED: ONDANSETRON 4mg/2ml INJECTION ONE (14:33)
[2016-12-14] MEDS ORDERED: MIDAZOLAM 2mg/2ml INJECTION ONE (14:33)
[2016-12-14] MEDS ORDERED: PROPOFOL 200mg 20 ML IV ONE ×2 (14:34→15:32)
[2016-12-14] MEDS ORDERED: PROPOFOL 500mg 50 ML IV ONE (14:34)
[2016-12-14] MEDS ORDERED: IOHEXOL 300 MG/ML 50ml INJECTION ONE ×2 (14:38→16:00)
[2016-12-14 14:40] LABS: BASOPHILS % (AUTO) 0.6 % (0-2); EOSINOPHILS % (AUTO) 0.6 % (0-4); HCT - HEMATOCRIT 27.9 % (36-46); HGB - HEMOGLOBIN 8.9 GM/DL (12-16); IMMATURE GRANULOCYTE # (AUTO) 0.15 T/MM3 (0.00-0.03); IMMATURE GRANULOCYTE % (AUTO) 2.1 % (0.0-0.5); LYMPHOCYTES % (AUTO) 13.1 % (23-45); MEAN CORPUSCULAR HGB 30.4 UUG (26-34); MEAN CORPUSCULAR HGB CONC(MCHC 31.9 GM/DL (31-37); MEAN CORPUSCULAR VOLUME 95.2 UM3 (80-100); MEAN PLATELET VOLUME 9.2 UM3 (9.4-12.4); MONOCYTES # (AUTO) 0.5 T/MM3 (0-0.8); MONOCYTES % (AUTO) 6.5 % (0-9.0); NEUTROPHILS #(AUTO)-ABSOLUTE 5.6 T/MM3 (1.8-7.7); NEUTROPHILS % (AUTO) 77.1 % (33-66); RED BLOOD COUNT 2.93 M/MM3 (4.00-5.20); WBC - WHITE BLOOD COUNT 7.3 T/MM3 (4.5-11.0)
[2016-12-14 14:43] LABS: ANION GAP 13 MEQ/L (5-15); BUN/CREATININE RATIO 14 RATIO (6-26); CALCIUM 8.8 MG/DL (8.4-10.2); CHLORIDE 103 MEQ/L (98-107); CO2 - CARBON DIOXIDE 28 MEQ/L (22-30); CREATININE 1.1 MG/DL (0.7-1.2); GLOMERULAR FILTRATION RATE 53; GLUCOSE 99 MG/DL (65-110); POTASSIUM 5.2 MEQ/L (3.6-5); SODIUM 144 MEQ/L (134-144)
[2016-12-14 15:46] VITALS: BP 130/91; PULSE 77; RESP 12; TEMP 98.6; O2SAT 96
[2016-12-14] MEDS: HYDROMORPHONE 2mg/ml INJECTION IV PRN ×3 (15:58→16:23)
[2016-12-14 16:00] VITALS: PULSE 75; RESP 20; O2SAT 94
[2016-12-14] MEDS ORDERED: ONDANSETRON 4mg/2ml INJECTION IV PRN (16:00)
[2016-12-14 16:15] VITALS: BP 120/64; PULSE 71; RESP 18; O2SAT 90
[2016-12-14 16:30] VITALS: BP 141/79; PULSE 68; RESP 20; O2SAT 94
--- NOTE | 2016-12-14 16:34 | NUR ---
TRANSFER PT TO IMAGING FOR CT PER CART ACCOMPANIED BY RN. RN REMAINS WITH PT THROUGHOUT CT SCAN.
--- NOTE | 2016-12-14 16:38 | ANESPO ---
Post-Op Note Date 12/14/16 Time: 16:35 Status Pt Participated in Evaluation: Pt participated in person Vital Signs Date Time Temp Pulse Resp B/P Pulse Ox O2 Delivery O2 Flow Rate FiO2 12/14/16 16:30 68 20 141/79 94 Nasal Cannula 4.00 12/14/16 15:46 98.6 Respiratory Function: Airway patent, Regular respirations Cardiovascular Function: Regular pulse Mental Status: Alert/oriented Pain Level Intensity: 2 Unable to Assess Pain Due To: Pt Sleeping Hydration: IV infusing Complications during Recovery None apparent Follow-Up Instructions Instructions Per Surgeon THAI ROMAN CRNA December 14, 2016 16:38
--- NOTE | 2016-12-14 16:57 | NUR ---
TRANSFER TRANSFER OF CARE TO [facility]. REPORT GIVEN TO ERI FARIA RN. PT TO CANCER INDEPENDENCE PER CART ACCOMPANIED BY ERI FARIA RN AND LAURITA WALKER. SHAILESH PATENT.
--- NOTE | 2016-12-14 17:47 | GSDISC ---
General Date Date DATE: 12/14/16 TIME: 17:40 Attending Physician Trinity Frausto MD Admitting Physician Trinity Frausto MD Consulting Physician Discharge Diagnosis: (1) Cervical carcinoma Laboratory Laboratory Laboratory Tests Test 12/14/16 14:28 White Blood Count 7.3T/MM3 Red Blood Count 2.93M/MM3 Hemoglobin 8.9GM/DL Hematocrit 27.9% Mean Corpuscular Volume 95.2UM3 Mean Corpuscular Hemoglobin 30.4UUG Mean Corpuscular Hemoglobin Concent 31.9GM/DL RDW Standard Deviation 91.9FL Platelet Count 165T/MM3 Mean Platelet Volume 9.2UM3 Immature Granulocyte % (Auto) 2.1% Neutrophils (%) (Auto) 77.1% Lymphocytes (%) (Auto) 13.1% Monocytes (%) (Auto) 6.5% Eosinophils (%) (Auto) 0.6% Basophils (%) (Auto) 0.6% Absolute Immature Granulocyte (auto 0.15T/MM3 Absolute Neutrophils (auto) 5.6T/MM3 Absolute Lymphocytes (auto) 1.0T/MM3 Absolute Monocytes (auto) 0.5T/MM3 Absolute Eosinophils (auto) 0.0T/MM3 Absolute Basophils (auto) 0.0T/MM3 Turbidity < 20 Sodium Level 144MEQ/L Potassium Level 5.2MEQ/L Chloride Level 103MEQ/L Carbon Dioxide Level 28MEQ/L Anion Gap 13MEQ/L Blood Urea Nitrogen 15.0MG/DL Creatinine 1.1MG/DL Glomerular Filtration Rate Calc 53 BUN/Creatinine Ratio 14RATIO Glucose Level 99MG/DL Calculated Osmolality 278MOSM/KG Calcium Level 8.8MG/DL Icterus Index < 2 Human Chorionic Gonadotropin, Qual Negative Chemistry Specimen Hemolysis < 15 Hospital Course Patient prepped and draped in standard fashion. Quispe placed with Hypaque in balloon. Exam under anesthesia shows no evidence of recurrence. Her anatomy is still very unusual with a ventral cervix without fornices. A cul-de-sac directly visualized was used to place ovoids. No parametrial involvement or signs of ascites. 15 degree tandem placed as well as small ovoids placed without complication. Separate bladder and rectal packing placed as well as rectal tube for contrast placement in CT. Patient was pushing on applicator throughout the placement and as she was taken to recovery. Dismissed in good condition to recovery. Home Meds Reported Medications Prochlorperazine Maleate (Prochlorperazine Maleate) 10 Mg Tablet, 10 MG PO QID for NAUSEA, TAB Take 1 tablet, by mouth, 4 times a day. 5 Ondansetron HCl (Ondansetron HCl) 8 Mg Tablet, PO for NAUSEA &/OR VOMITING 12/09/16 Metoprolol Succinate (Metoprolol Succinate) 50 Mg Tab.er.24h, 1 TAB PO DAILY, # 30 11/22/16 Bupropion HCl (Bupropion HCl Sr) 150 Mg Tablet.er, 1 TAB PO BID, #60 11/22/16 Furosemide (Furosemide) 20 Mg Tablet, 1 TAB PO DAILY, #30 11/22/16 Dulaglutide (Trulicity) 1.5 Mg/0.5 Ml Pen.injctr, #2 11/22/16 Carbamazepine (Tegretol) 200 Mg Tablet, 1 TAB PO BID 11/22/16 Omeprazole (Omeprazole) 40 Mg Capsule.dr, 1 CAP PO BID, #60 11/22/16 Metformin HCl (Metformin HCl) 1,000 Mg Tablet, 1 TAB PO BID, #60 11/22/16 Lisinopril (Lisinopril) 10 Mg Tablet, 1 TAB PO DAILY, #30 11/22/16 Levothyroxine Sodium (Levothyroxine Sodium) 25 Mcg Tablet, 1 TAB PO DAILY, #30 11/22/16 Insulin Glargine,Hum.rec.anlog (Lantus Solostar) 1 Unit Pen, #15 11/22/16 Gabapentin (Gabapentin) 100 Mg Capsule, 1 CAP PO TID, #90 11/22/16 Discharge Disposition Dismissed to recovery in good condition. TRINITY FRAUSTO MD December 14, 2016 17:46
--- NOTE | 2016-12-15 08:56 | DI ---
Indication: ITS.REASON: VERIFY APPLICATOR PLACEMENT AND R/O POSTOP COMPLICATION PROCEDURE: CT PELVIS W/O CONTRAST: Encounter: Subsequent encounter Comparison: 12/09/2016 Findings: Findings: Tandem and ovoid device appears appropriately positioned with the tandem extending through the endometrial canal. No evidence of uterine perforation. Quispe catheter is present within the contrast filled bladder. Body habitus creates significant attenuation artifact. Bony structures are unremarkable. Impression: Radiation therapy treatment device in place without evidence of immediate complication. .
== END 2016-12-14 16:57 | disposition home or self-care (01) ==
LOC: SCU 13:08
PROVIDERS: ATTEND Radiology Radiation Oncology
DX: C53.8 Malignant neoplasm of overlapping sites of cervix uteri (principal); E66.01 Morbid (severe) obesity due to excess calories; Z68.43 Body mass index [BMI] 50.0-59.9, adult; D69.6 Thrombocytopenia, unspecified; D64.81 Anemia due to antineoplastic chemotherapy; F41.9 Anxiety disorder, unspecified; G62.0 Drug-induced polyneuropathy; T50.995A Adverse effect of other drugs, medicaments and biological substances, initial encounter; Z79.4 Long term (current) use of insulin; Z79.899 Other long term (current) drug therapy
CPT/HCPCS: 57155; 72192; 80048; 84703; 85025; J1170; J2250; J2405; J2704; J3010; J7030; Q9967

== ENCOUNTER 2016-12-16 05:55 | Day surgery (SDC) | payer OTHER ==
--- NOTE | 2016-12-15 15:01 | NUR ---
ANTIBIOTIC OFFICE CALLED TO NOTIFY OF ALLERGY X SENSITIVITY TO ANCEF, TO EITHER HAVE DR ORDER NEW ANTIBIOTIC OR TO ADDRESS IN AM ON DOS. NURSE NOT ABLE TO TAKE PHONE CALL AT THIS TIME LEFT MESSAGE WITH FIELD PARTY MANAGER DESK
[~2016-12-16] VITALS: Ht 170.2 cm; Wt 147.3 kg
[~2016-12-16 05:55] MED LIST changes: -LIDOCAINE 1% (10mg/ml) 2ml SDV INJ ONE; -NORMAL SALINE 1,000 ML IV ONE
--- OUTSIDE RECORDS SUMMARY | 2016-12-16 06:00 | XMS REPORT | Continuity of Care Document ---
Author Author Chelsey Barbosa Address Unknown Phone Unavailable Care Team Providers Care Scallop Cutter Machine Name Role Phone [employer] Unavailable Unavailable Problems [...] Care Discharge Diagnosis: Apnea, sleep 11/24/2015 Diagnosis [facility] Diabetes mellitus (disorder) Active Problem 06/19/2016 [facility], [facility] Diabetic foot ulcer (disorder) Active Problem 06/19/2016 [facility], [facility] Hypertensive disorder, systemic arterial (disorder) Active Problem 06/19/2016 [facility], [facility] Hypothyroidism (disorder) Active Problem 06/19/2016 [facility], [facility] Menorrhagia (finding) Active Problem 06/19/2016 [facility], [facility] Morbid obesity (disorder) Active Problem 06/19/2016 [facility], [facility] Neuropathy (disorder) Active Problem 06/19/2016 [facility], [facility] Obstructive sleep apnea syndrome (disorder) Active Problem 06/19/2016 [facility], [facility] Seizure disorder (disorder) Active Problem 06/19/2016 [facility], [facility] Vitamin D deficiency (disorder) Active Problem 2015 [employer] [facility], [facility] Fatigue (finding) Active Problem 06/19/2016 [facility] Discharge Diagnosis: Chronic ulcer of left foot Diagnosis 12/26/2015 [facility] Medications Medication Details Route Status Patient Instructions Ordering Provider Order Date Source levothyroxine 25 mcg (0.025 mg) oral tablet </br>1 Tab, Q24H, PO, 30 Tab, 6 Number of Refills, 6, Route to Pharmacy Electronically, [facility], [id number], TAB Active [facility] Lancets </br>Lancets, See Instructions, 100 EA, Used to test blood glucose QID, 6 Number of Refills, 6, Route to Pharmacy Electronically, [facility], Instructions Replace Required Details, [id number] Active [facility] ferrous sulfate 325 mg (65 mg elemental iron) oral tablet </br>1 Tab, BID, PO, 60 Tab, 0 Number of Refills, 0, Route to Pharmacy Electronically, [facility], [id number] Active [facility] Vitamin D2 50,000 intl units oral capsule </br>1 Cap, 2x per Wk, PO, 8 Cap, 2 Number of Refills, 2, Route to Pharmacy Electronically, [facility], [id number] Active [facility] Lantus Claireostar Pen </br>SQ, Maintenance, 11/24/15 14:35:43 CDT, 0 Number of Refills Active [facility] Humalog KwikPen </br>20 units, QPM, SQ, 0 Number of Refills Active [facility] aAccu check strips </br>aAccu check strips, See Instructions, 100 EA, Used to check blood glucose QID, 6 Number of Refills, 6, Route to Pharmacy Electronically, [facility] , Instructions Replace Required Details, [id number] Active [facility] Carbamazepine 200 MG Oral Tablet </br>1 Tab, TID, PO, 90 Tab, 3 Number of Refills, 3, Route to Pharmacy Electronically, [facility], [id number], TAB Active [facility] Regranex </br>1.25 [...] of Refills, 6, Route to Pharmacy Electronically, [facility], [id number] , TAB Active [facility] lisinopril 10 mg oral tablet </br>1 Tab, daily, PO, 30 Tab, 6 Number of Refills, 6, Route to Pharmacy Electronically, [facility], [id number], TAB Active [facility] 3 ML Insulin Glargine 100 UNT/ML Prefilled Syringe [Lantus] </br>40 unit, AT BEDTIME, SQ, 10 mL, 3 Number of Refills, 3, Route to Pharmacy Electronically, [facility], [id number], CLAIRE Active [facility] 200 ACTUAT Albuterol 0.09 MG/ACTUAT Metered Dose Inhaler [ProAir HFA] </br>2 Puff(s), QID, INH, 1 EA, Maintenance, 04/14/16 16:22:56 CDT, 2 Number of Refills, 2, Route to Pharmacy Electronically, [facility], [id number] Active [facility] Levofloxacin 500 MG Oral Tablet [Levaquin] </br>1 Tab, Q24H, PO, 7 Day(s), 7 Tab, 04/21/16, 0 Number of Refills, 0, Route to Pharmacy Electronically, [facility], [id number] Inactive [facility] 24 HR Metoprolol Tartrate 50 MG Extended Release Tablet </br>1 Tab, Q24H, PO, 30 Tab, 3 Number of Refills, 3, Route to Pharmacy Electronically, [facility], [id number] Active [facility] Mupirocin 20 MG/ML Topical Cream </br>1 Apply, BID, TOP, 30 gm, 12/26/15, Acute, Apply a thin film to sores, 15:53:39 CDT, 1 Number of Refills, 1, Print Requisition, CRM
</br> Special Instructions: Apply a thin film to sores Inactive [facility] 0.5 ML dulaglutide 1.5 MG/ML Prefilled Syringe [Trulicity] </br>0.75 mg, qWeek, SQ, 4 EA, 1 Number of Refills, 1, Route to Pharmacy Electronically, [facility], [id number] Active [facility] 0.5 ML dulaglutide 3 MG/ML Prefilled Syringe [Trulicity] </br>1.5 mg, qWeek, SQ, 4 Amp, 6 Number of Refills, 6, Route to Pharmacy Electronically, [facility], [id number] Active [facility] Acetaminophen 325 MG / Hydrocodone Bitartrate 5 MG Oral Tablet [Lortab] </br>1 Tab, TID, PO, 20 Tab, 07/19/16, Acute, 06/18/16 12:11:03 DATA CONVERSION OPERATOR, 0 Number of Refills, 0, Print Requisition Inactive [facility] Allergies, Adverse Reactions, Alerts Substance Category Reaction Severity Reaction type Status Date Reported Comments Source Erythromycin Assertion Severe Drug allergy Rash, swelling of mouth [facility], [facility] Penicillin G Assertion Severe Drug allergy [facility], [facility] Immunizations Immunization Date Given Site Status Last Updated Comments Source No data available for this section No data available for this section [facility], [facility] Results Order Name Results Value Reference Range Date Interpretation Comments Source Office/Clinic Notes Office/Clinic Notes [facility] Care at [address] [address] PATIENT: JUAN DIEGO SHI MR #: [id number] : 1965 DATE SEEN: 06/18/2016 Chief Complaint [...] as needed for that. TR: GRANT JORGE#: [id number] [Electronically Signed on 06.23.2016 11:23 AM]
Katelyn Kyle MD
</br> 06/18/2016 [Electronically Signed on 06.23.2016 11:23 AM] Katelyn Kyle MD [facility] Office/Clinic Notes Office/Clinic Notes [facility] at [place] [address] [address] [place] [id number] PATIENT: JUAN DIEGO SHI MR #: [id number] : 1965 DATE SEEN: 06/17/2016 Chief Complaint [...] or, if it is cancer, referral to HEARING THERAPIST Oncology. TR: [id number] JORGE#: [id number] [Electronically Signed on 06.22.2016 09:07 PM]
Johnny [...] Care Surgical Pathology Report Surgical Pathology Report [facility] [address] [place] [address] NAME: JUAN DIEGO SHI ADMIT 06/17/2016 DATE: DISCHARGE DATE: 06/17/2016 ENC: [id number] ORDER PHYS: Johnny Ramos DO : 1965AGE: 51 years SEX:Female ATTEND Johnny Ramos DO PHYS: LOCATION: [facility] Pathology Reports ACCESSION: COLLECTED DATE/TIME: RECEIVED DATE/TIME: PATHOLOGIST: [id number] 06/17/2016 10:00 DATA CONVERSION OPERATOR 06/18/2016 09:39 DATA CONVERSION OPERATOR Seth Gomez MD Surgical Pathology Report - [...] The specimen consists of multiple irregular shape ysr-obd-cuonm soft tissue aggregating to 1.5 x 1.0 x 0.2 cm. Completely submitted as is in cassette B1. [facility]/VN Professional and technical services performed by [facility] d/b/a [employer] [facility] Department at [address] [address]. /VN 06.18.2016 11:12 NAME: JUAN DIEGO SHI [facility] [id number] ID: ENC: [id number] ROOM: 06/17/2016 [employer] CHEM12 eGFR () >60 mL/min >=60 2015 N Estimated GFR for an calculated using MDRD study equation. Result Verified by Discern Expert.
[employer] CHEM12 Albumin Level 3.5 gm/ dL 3.4 - 5.0 05/13/2016 N [employer] A1C eAverage Glu 123 05/13/2016 NA Estimated average glucose has a linear relationship with Hgb A1c and is intended to simplify the discussion of glycemic control with patients.
[facility] Office/Clinic Notes Office/Clinic Notes [facility] at [facility] [address] [place] [id number] PATIENT: JUAN DIEGO SHI MR #: [id number] : 1965 DATE SEEN: 05/13/2016 Chief Complaint [...] Refills : 6 Orders this visit: CHEM12 ([facility]) HgbA1C Follow Up 1 Month -Request In [...] 50 mg twice daily. TR: GRANT JORGE#: [id number] [Electronically Signed on 05.14.2016 11:55 AM]
Katelyn Kyle MD
</br> 05/13/2016 [Electronically Signed on 05.14.2016 11:55 AM] Katelyn Kyle MD [facility] Office/Clinic Notes Office/Clinic Notes [facility] Care at [address] [address] PATIENT: JUAN DIEGO SHI MR #: [id number] : 1965 DATE SEEN: 04/14/2016 Chief Complaint [...] the plan of care. TR: GRANT JORGE#: [id number] [Electronically Signed on 04.15.2016 01:46 PM]
Sabina [...] has been evaluated with computer
assisted technology.
BATCH AND FURNACE OPERATOR: CATY NG(ASCP)
CT screening location: [facility]
[address] [place]
[address]
PATHOLOGIST: Ranjith Flaherty M.D., Board Certified in
Anatomic Pathology and Cytopathology.

(electronic signature)
For questions contact Anatomic Pathology Client Services at [phone]
PERFORMING SITE:

[facility]
[address] [place] [address]
Dredge Pipe Installer: PER THACKER MD, CLIA : [id number]
[facility] Office/Clinic Notes Office/Clinic Notes [facility] at [address] [address] PATIENT: JUAN DIEGO SHI MR #: [id number] : 1965 DATE SEEN: 03/23/2016 Chief Complaint [...] does plan to schedule her mammogram at [facility] in the near future. Review of [...] No lesions. Scant cloudy discharge noted. Vagina: West and moist. Cervix: No cervical motion tenderness, [...] Shi plans to schedule her mammogram at [facility] in the near future. Ms. Shi was encouraged to schedule a routine follow up appointment with her primary care provider, Dr. Katelyn Kyle, in 1 month. She was instructed to continue all medications as prescribed. TR: [id number] JORGE#: [id number] [Electronically Signed on 03.24.2016 08:30 PM]
Sabina [...] Notes Office/Clinic Notes [facility] at [address] [address] PATIENT: JUAN DIEGO SHI MR #: [id number] : 1965 DATE SEEN: 02/25/2016 Chief Complaint [...] system(s): Constitutional, HEENT, Respiratory, Cardiovascular, GI, , HEARING THERAPIST, Integumentary, Musculoskeletal, Neurological, Hematologic, Endocrine, Psychiatric Allergies [...] (Thyroid Stim Hormone) Vitamin D Level TR: [id number] JORGE#: [id number] [Electronically Signed on 02.27.2016 04:53 AM]
Toro Copeland MD
</br> 02/25/2016 [Electronically Signed on 02.27.2016 04:53 AM] Toro Copeland MD [facility] Office/Clinic Notes Office/Clinic Notes Wound Care [address] [address] RE: JUAN DIEGO SHI MR #: [id number] : 1965 DATE SEEN: 02/16/2016 Juan Diego is a pleasant tym-pmvpoqm-avduqlgpo type 2 diabetic, who is uncontrolled at [...] Neurologic examination: Protective threshold is absent via Creston-Stella 5.07-g monofilament to bilateral feet. Deep tendon [...] depth ulceration, fifth digit, left foot. 3. Ojm-wpfgjkv-njppmfhdm diabetes with neuropathy, uncontrolled. Plan and procedure: [...] DOMINGO DPM DICTATED BY: Flavia Domingo. TR: [id number] DR: 02/16/2016 16:07:34 DE: 02/17/2016 02:56:15 JOB#: [id number] [Electronically Signed on 02.17.2016 09:06 AM]
Domingo, Lung K , DPM
</br> 02/16/2016 [Electronically Signed on 02.17.2016 09:06 AM] Domingo, Lung K, DPM [facility] Office/Clinic Notes Office/Clinic Notes Wound Care [address] [id number] RE: JUAN DIEGO SHI MR #: [id number] : 1965 DATE SEEN: 02-05-2016 Juan Diego is a pleasant jar-yusowis-bhnekqlfl type 2 diabetic, who is uncontrolled at [...] Neurologic examination: Protective threshold is absent via Creston-Stella 5.07-g monofilament to bilateral feet. Deep tendon [...] Full-thickness ulceration, fifth toe, left foot. 3. Mrk-qraetjp-tnpkhrvci diabetes with neuropathy, uncontrolled. Plan and procedure: [...] DPM DICTATED BY: Domingo Lung K. TR: [id number] DR: 02/05/2016 11:48:11 DE: 02/05/2016 12:22:30 JOB#: [id number] [Electronically Signed on 02.05.2016 01:48 PM]
Domingo, Lung K , DPM
</br> 02/05/2016 [Electronically Signed on 02.05.2016 01:48 PM] Domingo Lung K, DPM [facility] Office/Clinic Notes Office/Clinic Notes Wound Care [address] [address] RE: JUAN DIEGO SHI MR #: [id number] : 1965 DATE SEEN: 01/22/2016 Juan Diego is a pleasant max-gszthyf-vljkqtows type 2 diabetic, which is uncontrolled at [...] Full-thickness ulceration, fifth digit, left foot. 3. Ima-cludlgh-dorjjrxnu diabetes mellitus with neuropathy, uncontrolled. PROCEDURE: Wound [...] from Tuesday. [facility] Dictated By: FLAVIA DOMINGO DPM DICTATED BY: Flavia Domingo TR: [id number] DR: 01/22/2016 12:18:11 DE: 01/22/2016 17:56:40 JOB#: [id number] [Electronically Signed on 01.23.2016 09:40 AM]
Flavia Domingo DPM
</br> 01/22/2016 [Electronically Signed on 01.23.2016 09:40 AM] Flavia Domingo K, DPM [facility] Care Office/Clinic Notes Office/Clinic Notes Office/Clinic Note-Physician Corrected copy Wound Care [address] [address] RE: JUAN DIEGO SHI MR #: [id number] : 1965 DATE SEEN: 01/19/2016 Juan Diego is a pleasant xeu-omtcexv-rhbzgdghb type 2 diabetic, which is uncontrolled at [...] Neurologic examination: Protective threshold is absent via Creston-Stella 5.07-g monofilament to bilateral feet. Deep tendon [...] Full-thickness ulceration, fifth digit, left foot. 3. Alx-vjcayfw-ywgfmdwus diabetes mellitus with neuropathy, uncontrolled. Prior to [...] application in the very near future. TR: [id number] DR: 01/19/2016 04:41:00 pm DE: 01/20/2016 04:18:55 am JOB#: [id number] Dictated By: LUNG K ARLETTE DOMINGO DICTATED BY: Flavia Domingo. TR: [id number] DR: 01/19/2016 16:41:00 DE: 01/20/2016 05:09:00 CR: 01/20/2016 10:30 [facility] JOB#: [id number] [Electronically Signed on 01.20.2016 10:41 AM]
Flavia Domingo , DPM
</br> 01/19/2016 [Electronically Signed on 01.20.2016 10:41 AM] Flavia Domingo, DPM [facility] Office/Clinic Notes Office/Clinic Notes Wound Care [address] [address] RE: JUAN DIEGO SHI MR #: [id number] : 1965 DATE SEEN: 12/29/2015 Juan Diego is a pleasant jxi-ghgdiaw-rhyvjamar type 2 diabetic, which is uncontrolled at [...] Neurologic examination: Protective threshold is absent via Creston-Stella 5.07-g monofilament to bilateral feet. Deep tendon [...] DPM DICTATED BY: Chayo Flavia Keller. TR: [id number] DR: 12/29/2015 16:24:22 DE: 12/30/2015 08:49:55 JOB#: [id number] [Electronically Signed on 12.30.2015 09:03 AM]
Flavia Domingo , DPM
</br> 12/29/2015 [Electronically Signed on 12.30.2015 09:03 AM] Flavia Domingo, DPM [facility] MIKAELA Ferritin 17.3 ng/mL 3.0 - 105.0 12/26/2015 N [facility] IRON LEVEL Iron Level 31 mcg/ dL 35 - 150 12/26/2015 LOW [facility] Office/Clinic Notes Office/Clinic Notes [facility] at [address] [address] PATIENT: JUAN DIEGO SHI MR #: [id number] : 1965 DATE SEEN: 12/26/2015 Chief Complaint [...] followed by Podiatry. She was hospitalized in [place] for about a week. It looked like [...] seen Dr. Donna Sierra, the neurologist in [facility], and has been referred to their seizure [...] advised to continue to follow with the rodding anode worker. Regarding her hypertension, that is relatively well [...] to continue her CPAP. TR: GRANT JORGE#: [id number] [Electronically Signed on 12.30.2015 10:20 AM]
Katelyn Kyle MD
</br> 12/26/2015 [Electronically Signed on 12.30.2015 10:20 AM] Katelyn Kyle MD [facility] A1C Hgb A1c 8.1 % - <=5.6 12/26/2015 [place] Hgb A1c values
<5.7% Normal
5.7- 6.4% Increased risk for diabetes (pre-diabetes)
>6.5% Diabetes
[facility] -Auto Diff Abs Eos .21 x10^3/ uL .00 - .40 12/26/2015 N [facility] CBC with Diff NRBC% 0 /100 WBC - <=0 12/26/2015 N WBC count corrected for NRBCs present
[facility] Manual Differential Morphology Hypochrom 2 - <=0 2015 [place] [facility] P7 LDLC 81 60 - 99 12/26/2015 [facility] P7 HDL 40 mg/dL 40 - 60 12/26/2015 [facility] TSH TSH 6.000 uIU/mL 0.354 - 5.720 12/26/2015 [facility] VIT B12 Vit B12 Level 661 pg/ mL 180 - 914 12/26/2015 [facility] CARBM Carbamaz Level 5.4 mcg/ mL 4.0 - 12.0 12/26/2015 [facility] Office/Clinic Notes Office/Clinic Notes Patient: JUAN DIEGO [...] Ulcers-under the care of [facility], Hypertension, Hypothyroidism, Diabetic Neuropathy, and Obesity.. Review [...] these are being treated by [facility]. Integumentary: Negative. Neurologic: Alert and oriented X4, [...] list: All Problems Diabetes / SNOMED CT 577552229 / Confirmed Neuropathy / SNOMED CT 9032260286 / Confirmed Hypertension / SNOMED CT 3645866022 / Confirmed Diabetic foot ulcers / SNOMED CT 5121348126 / Confirmed Morbid obesity with BMI of 45.0-49.9, adult / SNOMED CT 032810183 / Confirmed Hypothyroidism / SNOMED CT 94613697 / Confirmed Seizure disorder due to Zinc Poisoning / SNOMED CT 699585345 / Confirmed Histories Past Medical History: No [...] Normal strength, Normal gait. Integumentary: Warm, Dry, West. Feet: Feet were examined with open sore [...] was 191.. Impression and Plan Diagnosis Diabetes (TSG94-EW E11.9). Diabetic foot ulcers (UYE74-DH E11.621). Hypoglycemia episodes (YNI95-OK E16.2). Hypertension (SDW74-YL I10). Hypothyroidism (SYA52-LH E03.9). Seizure disorder due to Zinc Poisoning (BRY71-OZ G40.909). Orders Orders (Selected) Outpatient Orders Ordered Dietitian Consult -Request: Completed Follow Up 1 Week- Request: Office Visit Level 4 Est - 39971: Prescriptions Prescribed levothyroxine 25 mcg (0.025 mg) [...] on 12.23.2015 12:54 PM] Katelyn Kyle MD [facility] Office/Clinic Notes Office/Clinic Notes Wound Care [address] [id number] RE: JUAN DIEGO SHI MR #: [id number] : 1965 DATE SEEN: 12/22/2015 HISTORY OF PRESENT ILLNESS: Tierra is a pleasant day-djrxwov-agipfyujw type 2 diabetic, who is uncontrolled at [...] depth ulceration, fifth digit, left foot. 4. Hbb-nsjgkzd-pxceypwwk diabetes with neuropathy, uncontrolled. 5. Xerosis of [...] receiving the proposed treatment. The patient or truck sales representative has indicated understanding and is willing [...] DOMINGO DPM DICTATED BY: Flavia Domingo. TR: [id number] DR: 12/22/2015 04:23:48 pm DE: 12/23/2015 05:08:40 am ED: 12/23/2015 8:14 [facility] JOB#: [id number] [Electronically Signed on 12.23.2015 09:13 AM]
Flavia Domingo DPM
</br> 12/22/2015 [Electronically Signed on 12.23.2015 09:13 AM] Flavia Domingo DPM [facility] Office/Clinic Notes Office/Clinic Notes Wound Care [address] [id number] RE: JUAN DIEGO SHI MR #: [id number] : 1965 DATE SEEN: 12/15/2015 HISTORY OF [...] depth ulceration anterior ankle, left foot. 5. Yel-gsinejt-aaspbupni diabetes with neuropathy, uncontrolled. PLAN AND PROCEDURE: [...] receiving the proposed treatment. The patient or truck sales representative has indicated understanding and is willing [...] feet. 2. The patient will to [facility] for surgical shoe bilateral feet for off [...] this time, will be set up with [facility]. Both of them will be mailed to her in the mail. Dictated By: FLAVIA DOMINGO DPM DICTATED BY: Flavia Domingo. TR: [id number] DR: 12/15/2015 17:14:51 DE: 12/16/2015 00:20:05 JOB#: [id number] [Electronically Signed on 12.16.2015 09:14 AM]
Flavia Domingo DPM
</br> 12/15/2015 [Electronically Signed on 12.16.2015 09:14 AM] Flavia Domingo DPM [facility] Office/Clinic Notes Office/Clinic Notes [facility] [address] [place] [address], [facility] [place] [address] PATIENT: JUAN DIEGO SHI MR #: [id number] : 1965 DATE SEEN: 12/09/2015 Chief Complaint [...] now. She has spent some time in [place] with IV (intravenous) antibiotics and oral antibiotics, [...] has had the vascular studies done in [place], so we will try to get those for Dr. Domingo for her. Also we will refer her for some new x-rays of both the right and the left foot. She will not be seeing me any more, she will be following with Dr. Domingo. TR: [id number] JORGE#: [id number] [Electronically Signed on 12.13.2015 08:41 AM]
Will Trevizo DPM
</br> 12/09/2015 [Electronically Signed on 12.13.2015 08:41 AM] KarinasybilSaikatharinejalen Kong, DPM [facility] FREET4 Free T4 0.87 ng/dL 0.58 - 1.64 11/24/2015 N [facility] Office/Clinic Notes Office/Clinic Notes [facility] at [address] [address] PATIENT: JUAN DIEGO SHI MR #: [id number] : 1965 DATE SEEN: 11/24/2015 Chief Complaint Juan Diego is here today for sores on both feet since about 2 months ago. History of Present Illness This 50-year-old white female presented to the clinic with a history of sores on her foot for about 2 months. She has a recent hospital stay at [place] where she was placed on IV (intravenous) antibiotics and oral antibiotics subsequently and needing to see a rodding anode worker as well. Her diagnoses have been reviewed. [...] She said they had rode from the [facility] to [place] and back and she had her shoe [...] feet, partly from when she was in [facility]. On the bottom of her [...] and we will have her see the rodding anode worker. We will have her back in about a week to reevaluate and we will get a free T4 since that was not done in the hospital. We referred her to a rodding anode worker here at the office. TR: [id number] JORGE#: [id number] [Electronically Signed on 11.26.2015 05:14 PM]
Toro [...] Provider ADM Date DC Date Status Source [facility] [address] [facility] [id number] EVAL LOW BACK PAIN Jodi Howluciano 10/10/2015 Active [facility] [id number] [facility] [id number] NEW/ BILATERAL FEET WOUNDS Toro Copeland Active [facility] [id number] Anju Rincon 11/24/2015 11/25/2015 [facility] [id number] [facility] [id number] pressure sores on both feet Will Trevizo 12/09/2015 Active [facility] [id number] Bruce Ayala 12/09/2015 12/10/2015 [facility] [place] [id number] [facility] [phone] Lung Domingo 12/15/2015 Active [facility] special officer SERVICES [facility] [phone] Rosanna [place]za 12/15/2015 12/23/2015 PROFESSIONAL SERVICES [facility] ( Outpatient) [id number] BOTH FEET / DM Lung Domingo 2015 Active [facility] (Outpatient) [id number] Lung Domingo 12/15/2015 12/16/2015 [facility] [address] [id number] Lung Domingo 12/22/2015 Active [facility] [address] [place] [address] [id number] EST/ FOLLOW UP PER DR. TAQUERIA Spence 2015 Active [facility] ( Outpatient) [id number] BOTH FEET / DM Lung Domingo 2015 Active [facility] [id number] Swathi Ngueyn 12/22/2015 [facility] Clinic (Outpatient) [id number] Lung Domingo 12/22/2015 12/23/2015 [facility] [id number] [facility] [id number] chaka Spence 12/25/2015 Active [facility] [id number] Sabina Spence 12/25/2015 [facility] [address] [place] [address] [phone] EST/ FOLLOW UP PER SABINA Kyle 12/26/2015 Active [facility] [id number] Zurdo Perez 12/26/2015 [facility] [address] [id number] Lung Domingo 12/29/2015 Active [facility] [id number] BOTH FEET / DM Lung Domingo 2015 Active [facility] (Outpatient) [id number] Lung Domingo 12/29/2015 12/30/2015 [facility] [place] [id number] [place] [facility] [id number] Lung Domingo 01/19/2016 Active [facility] [id number] BOTH FEET / DM Lung Domingo 2015 Active [facility] W[facility] (Outpatient) [id number] Lung Domingo 201501/20/2016 [facility] [address] [facility] [id number] Lung Domingo 01/22/2016 Active [facility] [id number] BOTH FEET / DM Lung Domingo 2015 Active [facility] W[facility] (Outpatient) [id number] Lung Domingo 201501/23/2016 [facility] [address] [place] [address] [facility] [facility] [id number] EST/ 1 MONTH FOLLOW UP Hesamodin Borhani 01/23/2016 Active [facility] [address] [facility] [id number] Lung Domingo 02/05/2016 [facility] [id number] Hesamodin Borhani 02/05/2016 PROFESSIONAL SERVICES [facility] ( Outpatient) [id number] LEFT FOOT / CAST / DM Lung Domingo Active [facility] ([facility]patient) [id number] Lung Domingo 201502/06/2016 [facility] [address] Clinic [id number] Lung Domingo 02/16/2016 02/23/2016 Active [facility] [id number] LEFT FOOT / DM Lung Domingo 201502/16/2016 Active [facility] ([facility]patient) [id number] Lung Domingo 201502/17/2016 [facility] [address] [place] [address] [id number] STOOL SAMPLE Sabina Bebe 02/20/2016 Discharged [facility] [place] [facility] [id number] Sabina Bebe 02/20/2016 [facility] [id number] LEFT FOOT / DM Lung Domingo 02/23/2016 Active [facility] [address] [place] [address] [id number] EST/ TRISTAN Copeland 02/25/2016 02/25/2016 Active [facility] [place] [facility] [id number] Toro Copeland 02/25/2016 [facility] [id number] [facility] [id number] PAP Sabina Spence 03/23/2016 Active [facility] [id number] Sabina Spence 03/23/2016 [facility] Pre- Clinic [id number] RIGHT FOOT TOE AND HEEL Lung Domingo 2015 Active [facility] [id number] [facility] [id number] EST/ HEAD COLD Sabina Spence 04/14/2016 Active [facility] [place] [facility] [id number] Sabina Alfonso 04/14/2016 [facility] [id number] 92814 [facility] [id number] EST/ 3 MONTH Hesamodin Borhani 05/13/2016 Active [facility] [id number] Hesamodin Borhani 05/13/2016 [facility] [place] [facility] 8080 [facility] [phone] REFER PCP ABNORMAL PAP- PER GERRI Ramos 06/17/2016 Active [facility] [id number] Johnny Ramos 06/17/2016 [facility] [id number] [facility] [id number] EST/ONE MONTH FOLLOW UP UP Hesamodin Borhani 06/18/2016 Active [facility] [id number] Hesamodin Borhani 06/18/2016 [facility] [id number] [facility] [facility] [id number] LABS Hesamodin Borhani 07/26/2016 Active [facility] [id number] [facility] [facility] [id number] EST/ 6 WEEKS Hesamodin Borhani 2015 Active [facility] Procedures Procedure Code Date Perfomer Comments Source No data available for this section [facility] Plan of Care Social History Assessment and Plan Family History Value Date Source Advance Directives Order Name Results Value Date Source
--- OUTSIDE RECORDS SUMMARY | 2016-12-16 06:00 | XMS REPORT | Continuity of Care Document ---
Author Author [facility] Organization [facility] Address Unknown Phone Unavailable Care Team Providers Care Administrative Project Coordinator Name Role Phone Jacinda Mi Primary Care Physician [phone] Source Comments Some departments are not documenting in the electronic medical record. If you do not see the information that you expected, contact Release of Information in the Health Information Management department at [phone] for further assistance in locating additional records.[facility] Active Allergies and Adverse Reactions Allergen Noted [...]
--- OUTSIDE RECORDS SUMMARY | 2016-12-16 06:01 | XMS REPORT | Continuity of Care Document ---
Author Author [facility] Organization [facility] Address Unknown Phone Unavailable Support Name Relationship Address Phone MENA KELLEY MD Caregiver [address] [place] [address] Unavailable JUSTINE BARAKAT Caregiver [address] [facility] [address] Unavailable JAYESH SHI Next Of Kin [address] [place] [address] [place] [address] Insurance Providers Guarantor Josy Shi Address [address] [place] [address] [place] [address] Email [email or web address] Payer [employer] Policy Number [id number] Subscriber's Name Jayesh Shi Relationship 01 Spouse Group Number [id number] Advance Directives Directive Response Recorded Date/Time Ordered Resuscitation Status Full Code 12/13/16 3:05pm Resuscitation Documents on File Yes 12/14/16 1:30pm DPOA for Healthcare Only No 12/14/16 1:30pm Living Will No 12/14/16 1:30pm Problems Active Problems Medical Problem Onset Date [...] Onset Date Status Chewing Tobacco Status No 12/14/2016 2:14pm Not Applicable Not Applicable Hx Substance Use No 12/14/2016 2:14pm Not Applicable Not Applicable Hx Alcohol Use No 12/14/2016 2:14pm Not Applicable Not Applicable Has the pt used tobacco in the last 12 months No 12/14/2016 2:14pm Not Applicable Not Applicable Query Response Start Date Stop Date Smoking Status Unknown if ever smoked Hospital Discharge Instructions No hospital discharge instructions. Plan of Care Discharge Date 12/14/16 4:57pm Prescriptions See Medication Section Functional Status Query Response Date Recorded Ability to complete ADL's impeded by No change December 14, 2016 1:30pm Allergies, Adverse Reactions, Alerts Allergen Type Severity Reaction Status Last Updated Penicillin Allergy Mild VOMITING Active 12/14/16 Erythromycin base Allergy Mild RASH Active 12/14/16 Immunizations Query Response on File Recorded Date/Time Hx Influenza Vaccination No 12/14/16 2:14pm Hx Pneumococcal Vaccination No 12/14/16 2:14pm Hx Influenza Vaccination No 12/14/16 2:14pm Vital Signs Acute Vital Signs Vital Response Date/Time Temperature (Fahrenheit) 98.6 deg F (96.8 - 99.1) 12/14/2016 3:46pm Temperature (Calculated Celsius) 37.08264 degrees C (36.0 - 37.3) 12/14/2016 3:46pm Temperature Source Axillary 12/14/2016 3:46pm Pulse Rate (adult) 68 bpm (60 - 100) 12/14/2016 4:30pm Respiratory Rate 20 breaths/min (10 - 20) 12/14/2016 4:30pm O2 Sat by Pulse Oximetry 94 % (90 - 100) 12/14/2016 4:30pm Oxygen Delivery Method Nasal Cannula 12/14/2016 4:30pm Oxygen Flow Rate 4.00 L/min 12/14/2016 4:30pm Blood Pressure 141/79 mm Hg 12/14/2016 4:30pm Blood Pressure Source Automatic Cuff 12/14/2016 4:30pm Height (Feet) 5 feet 12/14/2016 1:22pm Height (Inches) 7.00 inches 12/14/2016 1:22pm Weight (Kilograms) 147.000 kg 12/14/2016 1:22pm Body Mass Index (BMI) 50.8 12/14/2016 1:22pm Results Laboratory Results Test Name Result Units Flags Reference Collection Date/Time Result Date/ Time Comments Neutrophils % (Manual) 76.0 % H 33-66 12/09/2016 9:12/09/2016 9: 55am Band Neutrophils % 9.0 % H 0-6 12/09/2016 9:2212/09/2016 9:55am Lymphocytes % (Manual) 8.0 % L 23-45 12/09/2016 9:12/09/2016 9: 55am Monocytes % (Manual) 5.0 % 0-9.0 12/09/2016 9:12/09/2016 9:55am Eosinophils % (Manual) 1.0 % 0-4 12/09/2016 9:12/09/2016 9:55am Metamyelocytes % 1.0 % H 0-0 12/09/2016 9:12/09/2016 9:55am Band Neutrophils # 0.5 T/MM3 12/09/2016 9:22am 12/09/2016 9:55am Absolute Neutrophils (Manual) 4.4 T/MM3 1.8-7.7 12/09/2016 9:2212/09 9:55am Lymphocytes # (Manual) 0.5 T/MM3 L 1-4.8 12/09/2016 9:12/09/2016 9: 55am Monocytes # (Manual) 0.3 T/MM3 0-0.8 12/09/2016 9:2212/09/2016 9: 55am Eosinophils # (Manual) 0.1 T/MM3 0-0.5 12/09/2016 9:2212/09/2016 9: 55am Metamyelocytes # 0.1 T/MM3 12/09/2016 9:22am 12/09/2016 9:55am Nucleated Red Blood Cells 2 12/09/2016 9:22am 12/09/2016 9:55am Red Cell Morphology Comment ABNORMAL 12/09/2016 9:22am 12/09/2016 9 :55am Anisocytosis 3+ 12/09/2016 9:22am 12/09/2016 9:55am Poikilocytosis 1+ 12/09/2016 9:am 12/09/2016 9:55am Polychromasia 2+ 12/09/2016 9:22am 12/09/2016 9:55am White Blood Count 7.3 T/MM3 4.5-11.0 12/14/2016 2:12/14/2016 2: 40pm Red Blood Count 2.93 M/MM3 L 4.00-5.20 12/14/2016 2:12/14/2016 2: 40pm Hemoglobin 8.9 GM/DL L 12-16 12/14/2016 2:12/14/2016 2:40pm Hematocrit 27.9 % L 36-46 12/14/2016 2:12/14/2016 2:40pm Mean Corpuscular Volume 95.2 UM3 80-100 12/14/2016 2:12/14/2016 2: 40pm Mean Corpuscular Hemoglobin 30.4 UUG 26-34 12/14/2016 2:2016 2:40pm Mean Corpuscular Hemoglobin Concent 31.9 GM/DL 31-37 12/14/2016 2:12/14/2016 2:40pm RDW Standard Deviation 91.9 FL H 36.9-50.2 12/14/2016 2:12/14/2016 2:40pm Platelet Count 165 T/MM3 130-400 12/14/2016 2:12/14/2016 2:40pm Mean Platelet Volume 9.2 UM3 L 9.4-12.4 12/14/2016 2:12/14/2016 2: 40pm Neutrophils (%) (Auto) 77.1 % H 33-66 12/14/2016 2:12/14/2016 2: 40pm Lymphocytes (%) (Auto) 13.1 % L 23-45 12/14/2016 2:12/14/2016 2: 40pm Monocytes (%) (Auto) 6.5 % 0-9.0 12/14/2016 2:12/14/2016 2:40pm Eosinophils (%) (Auto) 0.6 % 0-4 12/14/2016 2:12/14/2016 2:40pm Basophils (%) (Auto) 0.6 % 0-2 12/14/2016 2:12/14/2016 2:40pm Immature Granulocyte % (Auto) 2.1 % H 0.0-0.5 12/14/2016 2:2016 2:40pm Absolute Neutrophils (auto) 5.6 T/MM3 1.8-7.7 12/14/2016 2:2016 2:40pm Absolute Lymphocytes (auto) 1.0 T/MM3 1-4.8 12/14/2016 2:2016 2:40pm Absolute Monocytes (auto) 0.5 T/MM3 0-0.8 12/14/2016 2:12/14/2016 2:40pm Absolute Eosinophils (auto) 0.0 T/MM3 0-0.5 12/14/2016 2:2016 2:40pm Absolute Basophils (auto) 0.0 T/MM3 0-0.2 12/14/2016 2:12/14/2016 2:40pm Absolute Immature Granulocyte (auto 0.15 T/MM3 H 0.00-0.03 12/14/2016 2: 12/14/2016 2:40pm Icterus Index < 2 0-7 12/14/2016 2:12/14/2016 2:43pm Chemistry Specimen Hemolysis < 15 0-25 12/14/2016 2:12/14/2016 2 :43pm 0-25: Specimen Exhibited No Hemolysis. Turbidity < 20 0-20 12/14/2016 2:12/14/2016 2:43pm Sodium Level 144 MEQ/L 134-144 12/14/2016 2:12/14/2016 2:43pm Potassium Level 5.2 MEQ/L H 3.6-5 12/14/2016 2:12/14/2016 2:43pm Chloride Level 103 MEQ/L 98-107 12/14/2016 2:28pm 12/14/2016 2:43pm Carbon Dioxide Level 28 MEQ/L 22-30 12/14/2016 2:pm 12/14/2016 2: 43pm Anion Gap 13 MEQ/L 5-15 12/14/2016 2:28pm 12/14/2016 2:43pm Blood Urea Nitrogen 15.0 MG/DL 7-12/14/2016 2:pm 12/14/2016 2: 43pm Creatinine 1.1 MG/DL 0.7-1.2 12/14/2016 2:28pm 12/14/2016 2:43pm BUN/Creatinine Ratio 14 RATIO 01-3112/14/2016 2:28pm 12/14/2016 2:43pm Glomerular Filtration Rate Calc 53 12/14/2016 2:28pm 12/14/2016 2: 43pm Glucose Level 99 MG/DL 65-110 12/14/2016 2:pm 12/14/2016 2:43pm Calculated Osmolality 278 MOSM/KG 261-280 12/14/2016 2:pm 12/14/2016 2:43pm Calcium Level 8.8 MG/DL 8.4-10.2 12/14/2016 2:28pm 12/14/2016 2:43pm Urine Collection Type VOIDED-NOT CC-MIDSTR 12/09/2016 5:10pm 2016 5:34pm Urine Color YELLOW YELLOW 12/09/2016 5:10pm 12/09/2016 5:34pm Urine Turbidity CLEAR CLEAR 12/09/2016 5:10pm 12/09/2016 5:34pm Urine Specific [place] 1.010 L 1.015-1.025 12/09/2016 5:10pm 2016 5:34pm Urine pH 5.5 5.0-8.0 12/09/2016 5:10pm 12/09/2016 5:34pm Urine Leukocyte Esterase NEGATIVE NEGATIVE 12/09/2016 5:10pm 2016 5:34pm Urine Nitrite NEGATIVE NEGATIVE 12/09/2016 5:10pm 12/09/2016 5:34pm Urine Protein NEGATIVE NEGATIVE 12/09/2016 5:10pm 12/09/2016 5:34pm Urine Glucose (UA) NEGATIVE NEGATIVE 12/09/2016 5:10pm 12/09/2016 5: 34pm Urine Ketones NEGATIVE NEGATIVE 12/09/2016 5:10pm 12/09/2016 5:34pm Urine Urobilinogen 0.2 EU/DL NORMAL 12/09/2016 5:10pm 12/09/2016 5: 34pm Urine Bilirubin NEGATIVE NEGATIVE 12/09/2016 5:10pm 12/09/2016 5: 34pm Urine Blood NEGATIVE NEGATIVE 12/09/2016 5:10pm 12/09/2016 5:34pm Urinalysis Comment MICROSCOPIC NOT IND. 12/09/2016 5:10pm 2016 5:34pm Procedures Procedure Status Date Provider(s) Insert uteri tandem/ovoids Completed 11/23/[address] pelvis w/o dye Completed 11/23/16 Metabolic panel total ca Completed 11/23/16 Complete cbc w/auto diff wbc Completed 11/23/16 842283"INJECTION, HYDROMORPHONE, UP TO 4 MG" Completed 11/23/16523052"INJECTION, HYDROMORPHONE, UP TO 4 MG" Completed 11/23/16898298"INJECTION, KETOROLAC TROMETHAMINE, PER 15 MG" Completed 11/23/16666817"INJECTION, MIDAZOLAM HYDROCHLORIDE, PER 1 MG" Completed 11/23/16919713"INJECTION, FENTANYL CITRATE, 0.1 MG" Completed 11/23/16028734"INJECTION, FENTANYL CITRATE, 0.1 MG" Completed 11/23/16448076"INFUSION, NORMAL SALINE SOLUTION , 1000 CC" Completed 11/23/16221668"LOW OSMOLAR CONTRAST MATERIAL, 300-399 MG/ML IODINE C Completed 003"LOW OSMOLAR CONTRAST MATERIAL, 300-399 MG/ML IODINE C Completed Routine venipuncture Completed 12/09/16 Insert uteri tandem/ovoids Completed 12/09/[address] pelvis w/o dye Completed 12/09/16 Metabolic panel total ca Completed 12/09/16 Chorionic gonadotropin assay Completed 12/09/16 Complete cbc w/auto diff wbc Completed 12/09/16527616"INJECTION, HYDROMORPHONE, UP TO 4 MG" Completed 12/09/16365425"INFUSION, NORMAL SALINE SOLUTION , 1000 CC" Completed 12/09/16 411557"LOW OSMOLAR CONTRAST MATERIAL, 300-399 MG/ML IODINE C Completed Urinalysis auto w/o scope Completed 12/09/16 Brachytherapy Completed 12/14/16 MENA KELLEY MD Encounters Encounter Location Arrival/Admit Date Discharge/Depart Date Attending Provider Departed [facility] 12/14/16 1:08pm 12/14/16 4: 57pm MENA KELLEY MD [facility] 12/09/16 5:23pm MENA KELLEY MD Departed [facility] 12/09/16 8:41am 12/09/16 12 :25pm MENA KELLEY MD Departed [facility] 11/23/16 11:48am 11/23/16 3 :41pm MENA KELLEY MD
[2016-12-16 06:07] VITALS: Ht 170.2 cm; Wt 147.3 kg
[2016-12-16 06:08] VITALS: BP 120/59; PULSE 84; RESP 13; TEMP 98.5; O2SAT 91
[2016-12-16 06:29] LABS: BASOPHILS % (AUTO) 0.4 % (0-2); EOSINOPHILS # (AUTO) 0.1 T/MM3 (0-0.5); EOSINOPHILS % (AUTO) 0.7 % (0-4); HCT - HEMATOCRIT 28.4 % (36-46); IMMATURE GRANULOCYTE # (AUTO) 0.16 T/MM3 (0.00-0.03); IMMATURE GRANULOCYTE % (AUTO) 2.2 % (0.0-0.5); LYMPHOCYTES % (AUTO) 13.3 % (23-45); MEAN CORPUSCULAR HGB 29.8 UUG (26-34); MEAN CORPUSCULAR HGB CONC(MCHC 31.7 GM/DL (31-37); MEAN PLATELET VOLUME 9.3 UM3 (9.4-12.4); MONOCYTES # (AUTO) 0.5 T/MM3 (0-0.8); MONOCYTES % (AUTO) 6.7 % (0-9.0); NEUTROPHILS #(AUTO)-ABSOLUTE 5.5 T/MM3 (1.8-7.7); NEUTROPHILS % (AUTO) 76.7 % (33-66); RED BLOOD COUNT 3.02 M/MM3 (4.00-5.20); WBC - WHITE BLOOD COUNT 7.2 T/MM3 (4.5-11.0)
[2016-12-16 06:40] LABS: ANION GAP 15 MEQ/L (5-15); BUN/CREATININE RATIO 15 RATIO (6-26); CHLORIDE 104 MEQ/L (98-107); CO2 - CARBON DIOXIDE 25 MEQ/L (22-30); GLOMERULAR FILTRATION RATE 59; GLUCOSE 117 MG/DL (65-110); POTASSIUM 4.4 MEQ/L (3.6-5); SODIUM 144 MEQ/L (134-144)
[2016-12-16] MEDS ORDERED: CEPH250C2 PO (06:45)
[2016-12-16] MEDS ORDERED: LORA1TAB3 PO (06:45)
[2016-12-16] MEDS ORDERED: CEFAZOLIN 1 GRAM INJECTION IV ONE (07:00)
[2016-12-16] MEDS ORDERED: NORMAL SALINE 1,000 ML IV ONE (07:00)
--- NOTE | 2016-12-16 07:02 | ANESPREOP ---
Anesthesia Record Date and Time DATE: 12/16/16 TIME: 06:59 Proposed Surgical Procedure T&O #4 Allergies: Coded Allergies: Penicillins (Verified Allergy, Mild, VOMITING, 12/14/16) erythromycin base (Verified Allergy, Mild, RASH, 12/14/16) Ht/Wt/BMI Height: 5 ' 7.00 " Weight: 147.300 kg BMI: 50.9 kg/m2 Vital Signs Date Time Temp Pulse Resp B/P Pulse Ox O2 Delivery O2 Flow Rate FiO2 12/16/16 06:08 98.5 84 13 120/59 91 Room Air Medications Bupropion HCl (Bupropion HCl Sr) 150 Mg Tablet.er, 1 TAB PO BID, (Reported) Last Taken: on 12/16/16399 Carbamazepine (Tegretol) 200 Mg Tablet, 1 TAB PO BID, (Reported) Last Taken: on 12/16/16399 Cephalexin (Cephalexin) 250 Mg Capsule, 1 CAP PO TIDWM, (Reported) Last Taken: on 12/15/162329 Dulaglutide (Trulicity) 1.5 Mg/0.5 Ml Pen.injctr, (Reported) Last Taken: on 12/15/162099 Furosemide (Furosemide) 20 Mg Tablet, 1 TAB PO DAILY, (Reported) Last Taken: on 12/16/16399 Gabapentin (Gabapentin) 100 Mg Capsule, 1 CAP PO TID, (Reported) Last Taken: on 12/16/16399 Insulin Glargine,Hum.rec.anlog (Lantus Solostar ) 1 Unit Pen, (Reported) Last Taken: on 12/15/161999 Levothyroxine Sodium (Levothyroxine Sodium) 25 Mcg Tablet, 1 TAB PO DAILY, (Reported) Last Taken: on 12/16/16399 Lisinopril (Lisinopril) 10 Mg Tablet, 1 TAB PO DAILY, (Reported) Last Taken: on 12/15/162099 Lorazepam (Lorazepam) 1 Mg Tablet, 1 TAB PO TID PRN for PRN ORDERS, (Reported) Last Taken: on 12/16/16399 Metformin HCl (Metformin HCl) 1,000 Mg Tablet, 1 TAB PO BID, (Reported) Last Taken: on Unknown Date & Time Metoprolol Succinate (Metoprolol Succinate) 50 Mg Tab.er.24h, 1 TAB PO DAILY, (Reported) Last Taken: on 12/16/16 040 Omeprazole (Omeprazole) 40 Mg Capsule.dr, 1 CAP PO BID, (Reported) Last Taken: on 12/16/16399 Ondansetron HCl (Ondansetron HCl) 8 Mg Tablet, PO, (Reported) Last Taken: on 12/16/16399 Prochlorperazine Maleate (Prochlorperazine Maleate) 10 Mg Tablet, 10 MG PO QID, (Reported) Take 1 tablet, by mouth, 4 times a day. Last Taken: on 12/15/16 Currently on Beta Dina: Yes Beta Dina Last Taken: metoprolol 50mg 12/16/16 at 0400 Medical/Surgical History Anesthesia PMH: Reports: *Diabetes, *Hypertension, Cancer (CERVICAL), Obesity, Pneumonia (LAST 2010), Reflux, Seizures (NEUROLOGICAL SEIZURE JUN 2016-FROM ZINC POSIONING), Sleep Apnea (has cpap), Thyroid Disease, Denies: Anesthesia Reactions (NO AIRWAY ISSUES), Arthritis, Blood Transfusion Reac, COPD (PT DENIES COPD), Clotting Problems, Glaucoma, Malignant Hyperthermia, Renal Disease Smoking Status: Current every day smoker # of Packs per Day: 1 # of Years: 20 Use Chewing Tobacco?: No Second Hand Exposure: No Substance Use Type: does not use Alcohol Intake: none Past Surgical History Orthopedic Surgeries: Abdominal Surgeries: Genitourinary Surgeries: Cardiac Surgeries: Endocrine Surgeries: Reproductive Surgeries: Yes - SLEVE PLACEMENT,T&O INSERTIONS Neurological Surgeries: Ear Surgeries: Nose Surgeries: Throat Surgeries: Yes - TONSILLECTOMY Other Surgeries: Yes - PORT PLACEMENT Anesthesia Adverse Reactions: FOUND none Family Hx of Anesthesia Advers: none Hx of Motion Sickness: No Pertinent Findings Laboratory Tests 12/16/16 06:17 EKG Rhythm: Sinus Rhythm Physical Exam Respiratory: Lungs clear Airway Assessment Mallampati Score: III TMD: 3 Fingerbreadths Neck Extension: Good Teeth: Upper Dentures Overall Assessment: May Be Diff Mask Vent., May Be Diff Intubation ASA: 3 Plan Anesthesia Plan: LMA Discussion Discussed risks/options/alternatives of anesthesia and questions answered. Patient consents. Nursing pain assessment noted. Attestation Statement Prior to the delivery of any anesthetic medication, I examined the patient, developed the plan, obtained the patient's consent and discussed the risk and benefits of the procedure with the patient/guardian. JAYESH KELLER December 16, 2016 07:02
[2016-12-16] MEDS ORDERED: PROPOFOL 500mg 50 ML IV ONE ×2 (07:29→08:30)
[2016-12-16] MEDS ORDERED: PROPOFOL 200mg 20 ML IV ONE (07:29)
[2016-12-16] MEDS ORDERED: IOHEXOL 300 MG/ML 50ml INJECTION ONE ×2 (07:45→09:37)
[2016-12-16] MEDS ORDERED: MIDAZOLAM 2mg/2ml INJECTION ONE (07:45)
[2016-12-16] MEDS ORDERED: GLYCOPYRROLATE 0.4mg/2ml INJECTION ONE (08:14)
[2016-12-16] MEDS ORDERED: FENTANYL 100mcg/2ml INJECTION ONE (08:28)
[2016-12-16 08:58] VITALS: BP 117/65; PULSE 89; RESP 20; TEMP 97.3; O2SAT 95
[2016-12-16 09:11] VITALS: BP 130/66; PULSE 88; RESP 21; O2SAT 97
[2016-12-16] MEDS ORDERED: HYDROMORPHONE 2mg/ml INJECTION IV PRN (09:15)
--- NOTE | 2016-12-16 09:28 | ANESPO ---
Post-Op Note Date 12/16/16 Time: 09:26 Status Pt Participated in Evaluation: Pt participated in person Vital Signs Date Time Temp Pulse Resp B/P Pulse Ox O2 Delivery O2 Flow Rate FiO2 12/16/16 09:11 88 21 130/66 97 Mask 6.00 12/16/16 08:58 97.3 Respiratory Function: Airway patent, Regular respirations Cardiovascular Function: Regular pulse Mental Status: Alert/oriented Pain Level Intensity: 6 (tolerable) Unable to Assess Pain Due To: Medicated/Sleeping Hydration: IV infusing Complications during Recovery None apparent Follow-Up Instructions Instructions Per Surgeon THAI ROMAN CRNA December 16, 2016 09:27
[2016-12-16 09:29] VITALS: BP 109/66; PULSE 82; RESP 21; O2SAT 95
[2016-12-16] MEDS ORDERED: IOHEXOL 350 MG/ML 50ml INJECTION ONE (09:36)
[2016-12-16 09:45] VITALS: BP 115/69; PULSE 78; RESP 21; O2SAT 91
[2016-12-16 09:53] VITALS: BP 105/58; PULSE 79; RESP 20; O2SAT 93
--- NOTE | 2016-12-16 10:01 | NUR ---
TRANSFER PT TRANSFERRED TO CT AT THIS TIME. ALERT AND ORIENTED. STATES PAIN IS AT A TOLERABLE LEVEL 5/10. THIS RN REMAINS WITH PT IN CT FOR SCAN.
--- NOTE | 2016-12-16 10:22 | NUR ---
TRANSFER PT TRANSFERRED VIA CART TO [facility] [place] ACCOMPANIED BY MARKEL RADIATION TECH. PT IS ALERT AND ORIENTED. CASH REMAINS IN PLACE, ORDERED. PTS PRESENT AT THIS TIME.
--- NOTE | 2016-12-16 11:01 | GSDISC ---
General Date Date DATE: 12/16/16 TIME: 10:55 Attending Physician Trinity Frausto MD Admitting Physician Trinity Frausto MD Consulting Physician Discharge Diagnosis: (1) Cervical carcinoma Laboratory Laboratory Laboratory Tests Test 12/16/16 06:17 White Blood Count 7.2T/MM3 Red Blood Count 3.02M/MM3 Hemoglobin 9.0GM/DL Hematocrit 28.4% Mean Corpuscular Volume 94.0UM3 Mean Corpuscular Hemoglobin 29.8UUG Mean Corpuscular Hemoglobin Concent 31.7GM/DL RDW Standard Deviation 90.0FL Platelet Count 170T/MM3 Mean Platelet Volume 9.3UM3 Immature Granulocyte % (Auto) 2.2% Neutrophils (%) (Auto) 76.7% Lymphocytes (%) (Auto) 13.3% Monocytes (%) (Auto) 6.7% Eosinophils (%) (Auto) 0.7% Basophils (%) (Auto) 0.4% Absolute Immature Granulocyte (auto 0.16T/MM3 Absolute Neutrophils (auto) 5.5T/MM3 Absolute Lymphocytes (auto) 1.0T/MM3 Absolute Monocytes (auto) 0.5T/MM3 Absolute Eosinophils (auto) 0.1T/MM3 Absolute Basophils (auto) 0.0T/MM3 Turbidity < 20 Sodium Level 144MEQ/L Potassium Level 4.4MEQ/L Chloride Level 104MEQ/L Carbon Dioxide Level 25MEQ/L Anion Gap 15MEQ/L Blood Urea Nitrogen 15.0MG/DL Creatinine 1.0MG/DL Glomerular Filtration Rate Calc 59 BUN/Creatinine Ratio 15RATIO Glucose Level 117MG/DL Calculated Osmolality 279MOSM/KG Calcium Level 9.0MG/DL Icterus Index < 2 Chemistry Specimen Hemolysis < 15 Hospital Course Patient was prepped and draped in standard fashion. Quispe catheter placed with Hypaque in the balloon for CT planning. Exam under anesthesia shows patient has lost her 80mm cervical sleeve which was not mentioned at the preoperative visit. The patient continues to show very unusual anatomy with a ventrally placed cervix making the anatomy less than ideal. A sound was used to explore patulous Os. It was determined that the tandem could be inserted without the sleeve placement. The tandem was inserted without difficulties as well as the small ovoids. Separate bladder and rectal packing placed to maximize distance of radiation to these organs. Rectal tube placed for contrast placement during CT planning. Patient was bearing down during procedure and post procedure. She was dismissed to recovery in good condition. Home Meds Reported Medications Cephalexin (Cephalexin) 250 Mg Capsule, 1 CAP PO TIDWM, #28 CAP 12/16/16 Lorazepam (Lorazepam) 1 Mg Tablet, 1 TAB PO TID Y for PRN ORDERS, TAB 12/16/16 Prochlorperazine Maleate (Prochlorperazine Maleate) 10 Mg Tablet, 10 MG PO QID for NAUSEA, TAB Take 1 tablet, by mouth, 4 times a day. 12/09/16 Ondansetron HCl (Ondansetron HCl) 8 Mg Tablet, PO for NAUSEA &/OR VOMITING 12/09/16 Metoprolol Succinate (Metoprolol Succinate) 50 Mg Tab.er.24h, 1 TAB PO DAILY, # 30 11/22/16 Bupropion HCl (Bupropion HCl Sr) 150 Mg Tablet.er, 1 TAB PO BID, #60 11/22/16 Furosemide (Furosemide) 20 Mg Tablet, 1 TAB PO DAILY, #30 11/22/16 Dulaglutide (Trulicity) 1.5 Mg/0.5 Ml Pen.injctr, #2 11/22/16 Carbamazepine (Tegretol) 200 Mg Tablet, 1 TAB PO BID 11/22/16 Omeprazole (Omeprazole) 40 Mg Capsule.dr, 1 CAP PO BID, #60 11/22/16 Metformin HCl (Metformin HCl) 1,000 Mg Tablet, 1 TAB PO BID, #60 11/22/16 Lisinopril (Lisinopril) 10 Mg Tablet, 1 TAB PO DAILY, #30 11/22/16 Levothyroxine Sodium (Levothyroxine Sodium) 25 Mcg Tablet, 1 TAB PO DAILY, #30 11/22/16 Insulin Glargine,Hum.rec.anlog (Lantus Solostar) 1 Unit Pen, #15 11/22/16 Gabapentin (Gabapentin) 100 Mg Capsule, 1 CAP PO TID, #90 11/22/16 Discharge Disposition Dismissed to recovery in good condition. TRINITY FRAUSTO MD December 16, 2016 10:58
--- NOTE | 2016-12-16 17:17 | DI ---
EXAM: CT PELVIS W/O CONTRAST LOCATION OF DICTATION: [facility] [place]. HISTORY: ITS.REASON: VERIFY APPLICATOR PLACEMENT AND R/O POSTOP COMPLICATION COMPARISON: 12/14/2016. TECHNIQUE: Axial images were obtained from the iliac crests to the ischial tuberosities without IV and oral contrast. The current CT scan was performed using radiation dose-reduction techniques. PELVIS FINDINGS: Quispe catheter is seen within the contrast-filled bladder. Radiation device is seen with the catheter or lead seen within the endometrial canal. No evidence for uterine perforation is identified. No osseous abnormality is identified. Contrast is seen within the colon. No lymphadenopathy is appreciated. No abnormalities to the bowel is seen. IMPRESSION: Radiation therapy treatment device in place without evidence of immediate complication identified. .
== END 2016-12-16 10:22 | disposition home or self-care (01) ==
LOC: SCU 05:55
PROVIDERS: ATTEND Radiology Radiation Oncology
DX: C53.8 Malignant neoplasm of overlapping sites of cervix uteri (principal); D69.6 Thrombocytopenia, unspecified; D64.81 Anemia due to antineoplastic chemotherapy; T45.1X5S Adverse effect of antineoplastic and immunosuppressive drugs, sequela; G62.0 Drug-induced polyneuropathy; F41.9 Anxiety disorder, unspecified; E66.01 Morbid (severe) obesity due to excess calories; Z68.43 Body mass index [BMI] 50.0-59.9, adult; Z79.4 Long term (current) use of insulin; Z79.84 Long term (current) use of oral hypoglycemic drugs; Z79.899 Other long term (current) drug therapy
CPT/HCPCS: 36415; 57155; 72192; 80048; 85025; J0330; J1170; J2250; J2704; J3010; J7030; Q9967

== ENCOUNTER 2016-12-30 08:06 | Day surgery (SDC) | payer OTHER ==
[2016-12-30] VITALS (8 sets, daily range): BP systolic 88–151; BP diastolic 51–77; PULSE 75–86; RESP 13–24; TEMP 97.5–97.8; O2SAT 88–98; Ht 170.2 cm; Wt 147.9 kg
[~2016-12-30] VITALS: Ht 170.2 cm; Wt 147.9 kg
[~2016-12-30 08:06] MED LIST changes: +FENTANYL 100mcg/2ml INJECTION ONE; +IOHEXOL 300 MG/ML 50ml INJECTION ONE; +KETOROLAC 30mg/ml INJECTION ONE; +LORA1TAB3 PO; +MIDAZOLAM 2mg/2ml INJECTION ONE; +NORMAL SALINE 1,000 ML IV ONE; +ONDANSETRON 4mg/2ml INJECTION ONE
--- OUTSIDE RECORDS SUMMARY | 2016-12-30 08:19 | XMS REPORT | Continuity of Care Document ---
Author Author [facility] Organization [facility] Address Unknown Phone Unavailable Care Team Providers Care Open Hearth Worker Name Role Phone Jacinda Mi Primary Care Physician [phone] Source Comments Some departments are not documenting in the electronic medical record. If you do not see the information that you expected, contact Release of Information in the Health Information Management department at [phone] for further assistance in locating additional records.University [...]
--- OUTSIDE RECORDS SUMMARY | 2016-12-30 08:20 | XMS REPORT | Continuity of Care Document ---
Author Author [facility] Organization [facility] Address Unknown Phone Unavailable Support Name Relationship Address Phone MENA KELLEY MD Caregiver [address] [place] [place] [address] Unavailable JAYESH SHI Next Of Kin [address] [place] [address] Insurance Providers Guarantor Josy Shi Address [address] [place] [address] [place] [address] Email [email or web address] Payer [employer] Policy Number [id number] Subscriber's Name Jayesh Shi Relationship 01 Spouse Group Number [id number] Advance Directives Directive Response Recorded Date/Time Ordered Resuscitation Status Full Code 12/15/16 2:50pm Resuscitation Documents on File No 12/16/16 6:34am DPOA for Healthcare Only No 12/16/16 6:34am Living Will No 12/16/16 6:34am Problems Active Problems Medical Problem Onset Date Status Cervical carcinoma Unknown Medications Current Home Medications Medication Dose Units Route Directions Days Qty Instructions Start Date Bupropion Hcl (Bupropion Hcl Sr) 150 Mg Tablet.er 1 Tab Oral Twice A Day 60 11/22/16 Carbamazepine (Tegretol) 200 Mg Tablet 1 Tab Oral Twice A Day Cephalexin 250 Mg Capsule 1 Cap Oral Three Times Daily With Meals 28 Capsule 12/16/16 Dulaglutide (Trulicity) 1.5 Mg/0.5 Ml Pen.injctr 2 Furosemide 20 Mg Tablet 1 Tab Oral Daily 30 11/22/16 Gabapentin 100 Mg Capsule 1 Cap Oral Three Times A Day 90 11/22/16 Insulin Glargine,Hum.rec.anlog (Lantus Solostar) 1 Unit Pen 15 11/22/16 Levothyroxine Sodium 25 Mcg Tablet 1 Tab Oral Daily 30 11/22/16 Lisinopril 10 Mg Tablet 1 Tab Oral Daily 30 11/22/16 Lorazepam 1 Mg Tablet 1 Tab Oral Three Times A Day as needed for Prn Orders 12/16/16 Metformin Hcl 1,000 Mg Tablet 1 Tab [...] Onset Date Status Hx Substance Use No 12/14/2016 2:14pm Not Applicable Not Applicable Hx Alcohol Use No 12/14/2016 2:14pm Not Applicable Not Applicable Has the pt used tobacco in the last 12 months No 12/14/2016 2:14pm Not Applicable Not Applicable Hospital Discharge Instructions No hospital discharge instructions. Plan of Care Discharge Date 12/16/16 10:22am Prescriptions See Medication Section Functional Status Query Response Date Recorded Ability to complete ADL's impeded by No change December 16, 2016 6:34am Allergies, Adverse Reactions, Alerts Allergen Type Severity Reaction Status Last Updated Penicillin Allergy Mild VOMITING Active 12/16/16 Erythromycin base Allergy Mild RASH Active 12/16/16 Immunizations Query Response on File Recorded Date/Time Hx Influenza Vaccination No 12/14/16 2:14pm Hx Pneumococcal Vaccination No 12/14/16 2:14pm Hx Influenza Vaccination No 12/14/16 2:14pm Vital Signs Acute Vital Signs Vital Response Date/Time Temperature (Fahrenheit) 97.3 deg F (96.8 - 99.1) 12/16/2016 8:58am Temperature (Calculated Celsius) 36.85633 degrees C (36.0 - 37.3) 12/16/2016 8:58am Temperature Source Temporal 12/16/2016 8:58am Pulse Rate (adult) 79 bpm (60 - 100) 12/16/2016 9:53am Respiratory Rate 20 breaths/min (10 - 20) 12/16/2016 9:53am O2 Sat by Pulse Oximetry 93 % (90 - 100) 12/16/2016 9:53am Oxygen Delivery Method Room Air 12/16/2016 9:53am Oxygen Flow Rate 4.00 L/min 12/16/2016 9:29am Blood Pressure 105/58 mm Hg 12/16/2016 9:53am Blood Pressure Source Automatic Cuff 12/16/2016 9:53am Height (Feet) 5 feet 12/16/2016 6:07am Height (Inches) 7.00 inches 12/16/2016 6:07am Weight (Kilograms) 147.300 kg 12/16/2016 6:07am Body Mass Index (BMI) 50.9 12/16/2016 6:07am Results Laboratory Results Test Name Result Units [...] Monocytes # (Manual) 0.3 T/MM3 0-0.8 12/09/2016 9:12/09/2016 9: 55am Eosinophils # (Manual) 0.1 T/MM3 0-0.5 12/09/2016 9:12/09/2016 9: 55am Metamyelocytes # 0.1 T/MM3 12/09/2016 9:am 12/09/2016 9:55am Nucleated Red Blood Cells 2 12/09/2016 9:12/09/2016 9:55am Red Cell Morphology Comment ABNORMAL 12/09/2016 9:12/09/2016 9 :55am Anisocytosis 3+ 12/09/2016 9:12/09/2016 9:55am Poikilocytosis 1+ 12/09/2016 9:12/09/2016 9:55am Polychromasia 2+ 12/09/2016 9:12/09/2016 9:55am White Blood Count 7.2 T/MM3 4.5-11.0 12/16/2016 6:12/16/2016 6: 29am Red Blood Count 3.02 M/MM3 L 4.00-5.20 12/16/2016 6:12/16/2016 6: 29am Hemoglobin 9.0 GM/DL L 12-16 12/16/2016 6:12/16/2016 6:29am Hematocrit 28.4 % L 36-46 12/16/2016 6:12/16/2016 6:29am Mean Corpuscular Volume 94.0 UM3 80-100 12/16/2016 6:12/16/2016 6: 29am Mean Corpuscular Hemoglobin 29.8 UUG 26-34 12/16/2016 6:2016 6:29am Mean Corpuscular Hemoglobin Concent 31.7 GM/DL 31-37 12/16/2016 6:12/16/2016 6:29am RDW Standard Deviation 90.0 FL H 36.9-50.2 12/16/2016 6:12/16/2016 6:29am Platelet Count 170 T/MM3 130-400 12/16/2016 6:12/16/2016 6:29am Mean Platelet Volume 9.3 UM3 L 9.4-12.4 12/16/2016 6:12/16/2016 6: 29am Neutrophils (%) (Auto) 76.7 % H 33-66 12/16/2016 6:12/16/2016 6: 29am Lymphocytes (%) (Auto) 13.3 % L 23-45 12/16/2016 6:12/16/2016 6: 29am Monocytes (%) (Auto) 6.7 % 0-9.0 12/16/2016 6:12/16/2016 6:29am Eosinophils (%) (Auto) 0.7 % 0-4 12/16/2016 6:12/16/2016 6:29am Basophils (%) (Auto) 0.4 % 0-2 12/16/2016 6:12/16/2016 6:29am Immature Granulocyte % (Auto) 2.2 % H 0.0-0.5 12/16/2016 6:2016 6:29am Absolute Neutrophils (auto) 5.5 T/MM3 1.8-7.7 12/16/2016 6:2016 6:29am Absolute Lymphocytes (auto) 1.0 T/MM3 1-4.8 12/16/2016 6:2016 6:29am Absolute Monocytes (auto) 0.5 T/MM3 0-0.8 12/16/2016 6:12/16/2016 6:29am Absolute Eosinophils (auto) 0.1 T/MM3 0-0.5 12/16/2016 6:2016 6:29am Absolute Basophils (auto) 0.0 T/MM3 0-0.2 12/16/2016 6:12/16/2016 6:29am Absolute Immature Granulocyte (auto 0.16 T/MM3 H 0.00-0.03 12/16/2016 6: 12/16/2016 6:29am Icterus Index < 2 0-7 12/16/2016 6:12/16/2016 6:40am Chemistry Specimen Hemolysis < 15 0-25 12/16/2016 6:12/16/2016 6 :40am 0-25: Specimen Exhibited No Hemolysis. Turbidity < 20 0-20 12/16/2016 6:12/16/2016 6:40am Sodium Level 144 MEQ/L 134-144 12/16/2016 6:12/16/2016 6:40am Potassium Level 4.4 MEQ/L 3.6-5 12/16/2016 6:12/16/2016 6:40am Chloride Level 104 MEQ/L 98-107 12/16/2016 6:12/16/2016 6:40am Carbon Dioxide Level 25 MEQ/L 22-30 12/16/2016 6:12/16/2016 6: 40am Anion Gap 15 MEQ/L 5-15 12/16/2016 6:12/16/2016 6:40am Blood Urea Nitrogen 15.0 MG/DL 7-17 12/16/2016 6:12/16/2016 6: 40am Creatinine 1.0 MG/DL 0.7-1.2 12/16/2016 6:12/16/2016 6:40am BUN/Creatinine Ratio 15 RATIO 6-12/16/2016 6:12/16/2016 6:40am Glomerular Filtration Rate Calc 59 12/16/2016 6:12/16/2016 6: 40am Glucose Level 117 MG/DL H 65-110 12/16/2016 6:12/16/2016 6:40am Calculated Osmolality 279 MOSM/KG 261-280 12/16/2016 6:12/16/2016 6:40am Calcium Level 9.0 MG/DL 8.4-10.2 12/16/2016 6:12/16/2016 6:40am Urine Collection Type VOIDED-NOT CC-MIDSTR 12/09/2016 5:10pm 2016 5:34pm Urine Color YELLOW YELLOW 12/09/2016 5:pm 12/09/2016 5:34pm Urine Turbidity CLEAR CLEAR 12/09/2016 5:12/09/2016 5:34pm Urine Specific [place] 1.010 L 1.015-1.025 12/09/2016 5:2016 5:34pm Urine pH 5.5 5.0-8.0 12/09/2016 5:10pm [...] Complete cbc w/auto diff wbc Completed 11/23/16 031396"INJECTION, HYDROMORPHONE, UP TO 4 MG" Completed 11/23/16535269"INJECTION, HYDROMORPHONE, UP TO 4 MG" Completed 11/23/16066699"INJECTION, KETOROLAC TROMETHAMINE, PER 15 MG" Completed 11/23/16160615"INJECTION, MIDAZOLAM HYDROCHLORIDE, PER 1 MG" Completed 11/23/16683695"INJECTION, FENTANYL CITRATE, 0.1 MG" Completed 11/23/16719459"INJECTION, FENTANYL CITRATE, 0.1 MG" Completed 11/23/16296868"INFUSION, NORMAL SALINE SOLUTION , 1000 CC" Completed 11/23/16406290"LOW OSMOLAR CONTRAST MATERIAL, 300-399 MG/ML IODINE C Completed 003"LOW OSMOLAR CONTRAST MATERIAL, 300-399 MG/ML IODINE C Completed Routine venipuncture Completed 12/09/16 Insert uteri tandem/ovoids Completed 12/09/[address] pelvis w/o dye Completed 12/09/16 Metabolic panel total ca Completed 12/09/16 Chorionic gonadotropin assay Completed 12/09/16 Complete cbc w/auto diff wbc Completed 12/09/16 178449"INJECTION, HYDROMORPHONE, UP TO 4 MG" Completed 12/09/16408123"INFUSION, NORMAL SALINE SOLUTION , 1000 CC" Completed 12/09/16954523"LOW OSMOLAR CONTRAST MATERIAL, 300-399 MG/ML IODINE C Completed Urinalysis auto w/o scope Completed 12/09/16 Brachytherapy Completed 12/14/16 MENA KELLEY MD Brachytherapy Completed 12/16/16 MENA KELLEY MD Encounters Encounter Location Arrival/Admit Date Discharge/Depart Date Attending Provider Departed [facility] 12/16/16 5:55am 12/16/16 10 :22am MENA KELLEY MD Departed [facility] 12/14/16 1:08pm 12/14/16 4: 57pm MENA KELLEY MD [facility] 12/09/16 5:23pm MENA KELLEY MD Departed [facility] 12/09/16 8:41am 12/09/16 12 :25pm MENA KELLEY MD Departed [facility] 11/23/16 11:48am 11/23/16 3 :41pm MENA KELLEY MD
[2016-12-30 08:50] LABS: BASOPHILS % (AUTO) 0.4 % (0-2); EOSINOPHILS # (AUTO) 0.2 T/MM3 (0-0.5); EOSINOPHILS % (AUTO) 2.7 % (0-4); HCT - HEMATOCRIT 30.1 % (36-46); HGB - HEMOGLOBIN 9.5 GM/DL (12-16); IMMATURE GRANULOCYTE % (AUTO) 1.4 % (0.0-0.5); LYMPHOCYTES # (AUTO) 0.7 T/MM3 (1-4.8); LYMPHOCYTES % (AUTO) 9.4 % (23-45); MEAN CORPUSCULAR HGB 31.6 UUG (26-34); MEAN CORPUSCULAR HGB CONC(MCHC 31.6 GM/DL (31-37); MEAN PLATELET VOLUME 9.2 UM3 (9.4-12.4); MONOCYTES # (AUTO) 0.4 T/MM3 (0-0.8); MONOCYTES % (AUTO) 6.3 % (0-9.0); NEUTROPHILS #(AUTO)-ABSOLUTE 5.6 T/MM3 (1.8-7.7); NEUTROPHILS % (AUTO) 79.8 % (33-66); RED BLOOD COUNT 3.01 M/MM3 (4.00-5.20)
[2016-12-30] MEDS ORDERED: HYDR-4078 PO (08:51)
[2016-12-30 09:01] LABS: ANION GAP 14 MEQ/L (5-15); BUN/CREATININE RATIO 14 RATIO (6-26); CALCIUM 9.4 MG/DL (8.4-10.2); CHLORIDE 106 MEQ/L (98-107); CO2 - CARBON DIOXIDE 27 MEQ/L (22-30); CREATININE 0.9 MG/DL (0.7-1.2); GLOMERULAR FILTRATION RATE 67; GLUCOSE 151 MG/DL (65-110); SODIUM 147 MEQ/L (134-144)
--- NOTE | 2016-12-30 09:02 | ANESPREOP ---
Anesthesia Record Date and Time DATE: 12/30/16 TIME: 09:01 Pre-Op Diagnosis cervical cancer Proposed Surgical Procedure TANDEM AND OVOID INSERTION #5 NPO since: MN Allergies: Coded Allergies: Penicillins (Verified Allergy, Mild, VOMITING, 12/30/16) erythromycin base (Verified Allergy, Mild, RASH, 12/30/16) Ht/Wt/BMI Height: 5 ' 7.00 " Weight: 147.900 kg BMI: 51.1 kg/m2 Vital Signs Date Time Temp Pulse Resp B/P Pulse Ox O2 Delivery O2 Flow Rate FiO2 12/30/16 08:24 97.5 75 13 151/77 91 Room Air Medications Bupropion HCl (Bupropion HCl Sr) 150 Mg Tablet.er, 1 TAB PO BID, (Reported) Last Taken: on 12/29/16 1500 Carbamazepine (Tegretol) 200 Mg Tablet, 1 TAB PO BID, (Reported) Last Taken: on 12/29/162358 Dulaglutide (Trulicity) 1.5 Mg/0.5 Ml Pen.injctr, (Reported) Last Taken: on 12/23/16 Furosemide (Furosemide) 20 Mg Tablet, 1 TAB PO DAILY, (Reported) Last Taken: on 12/28/16 Gabapentin (Gabapentin) 100 Mg Capsule, 1 CAP PO TID, (Reported) Last Taken: on 12/29/162358 Hydrocodone/Acetaminophen ([place] 10-325 Tablet ) 10-325 Tablet, 1 TAB PO Q4-6HPRN, (Reported) Last Taken: on 12/29/162358 Insulin Glargine,Hum.rec.anlog (Lantus Solostar ) 1 Unit Pen, (Reported) Last Taken: on 12/30/16 033 Levothyroxine Sodium (Levothyroxine Sodium) 25 Mcg Tablet, 1 TAB PO DAILY, (Reported) Last Taken: on 12/30/16 034 Lisinopril (Lisinopril) 10 Mg Tablet, 1 TAB PO DAILY, (Reported) Last Taken: on 12/29/162358 Lorazepam (Lorazepam) 1 Mg Tablet, 1 TAB PO TID PRN for PRN ORDERS, (Reported) Last Taken: on 12/30/16 034 Metformin HCl (Metformin HCl) 1,000 Mg Tablet, 1 TAB PO BID, (Reported) Last Taken: on 12/29/16 Metoprolol Succinate (Metoprolol Succinate) 50 Mg Tab.er.24h, 1 TAB PO DAILY, (Reported) Last Taken: on 12/29/162358 Omeprazole (Omeprazole) 40 Mg Capsule.dr, 1 CAP PO BID, (Reported) Last Taken: on 12/30/16344 Ondansetron HCl (Ondansetron HCl) 8 Mg Tablet, PO, (Reported) Last Taken: on 12/29/162358 Prochlorperazine Maleate (Prochlorperazine Maleate) 10 Mg Tablet, 10 MG PO QID, (Reported) Take 1 tablet, by mouth, 4 times a day. Last Taken: on 12/29/16 Currently on Beta Dina: Yes Beta Dina Last Taken: 344 Medical/Surgical History Anesthesia PMH: Reports: *Diabetes, *Hypertension, Cancer (CERVICAL), Obesity, Pneumonia (LAST 2010), Reflux, Seizures (NEUROLOGICAL SEIZURE JUN 2016-FROM ZINC POSIONING), Sleep Apnea (has cpap), Thyroid Disease, Denies: Anesthesia Reactions (NO AIRWAY ISSUES), Arthritis, Blood Transfusion Reac, COPD (PT DENIES COPD), Clotting Problems, Glaucoma, Malignant Hyperthermia, Renal Disease # of Packs per Day: 1 # of Years: 20 Use Chewing Tobacco?: No Second Hand Exposure: No Substance Use Type: does not use Alcohol Intake: none HX of Last Menstrual Period: 2016 Past Surgical History Orthopedic Surgeries: Abdominal Surgeries: Genitourinary Surgeries: Cardiac Surgeries: Endocrine Surgeries: Reproductive Surgeries: Yes - SLEVE PLACEMENT,T&O INSERTIONS Neurological Surgeries: Ear Surgeries: Nose Surgeries: Throat Surgeries: Yes - TONSILLECTOMY Other Surgeries: Yes - PORT PLACEMENT Anesthesia Adverse Reactions: FOUND none Family Hx of Anesthesia Advers: none Hx of Motion Sickness: No Pertinent Findings Laboratory Tests 12/30/16 08:35 Test 12/30/16 08:36 EKG Rhythm: Sinus Rhythm Physical Exam Respiratory: Bilat breath sounds equal, Lungs clear Cardiovascular: FOUND Regular rate, rhythm, FOUND No murmur Airway Assessment Mallampati Score: III TMD: 3 Fingerbreadths Overall Assessment: May Be Diff Mask Vent., May Be Diff Intubation ASA: 3 Plan Anesthesia Plan: TIVA, LMA Discussion Discussed risks/options/alternatives of anesthesia and questions answered. Patient consents. Nursing pain assessment noted. Present: Spouse Attestation Statement Prior to the delivery of any anesthetic medication, I examined the patient, developed the plan, obtained the patient's consent and discussed the risk and benefits of the procedure with the patient/guardian. SHANELL HOFFMANN CRNA December 30, 2016 09:02
[2016-12-30] MEDS ORDERED: GLYCOPYRROLATE 0.4mg/2ml INJECTION ONE (09:32)
[2016-12-30] MEDS ORDERED: PROPOFOL 500mg 100 ML IV ONE (09:32)
[2016-12-30] MEDS ORDERED: DEXAMETHASONE 4mg/ml - 1ml INJECTION ONE (09:32)
[2016-12-30] MEDS ORDERED: KETAMINE 500mg/10ml INJECTION ONE (09:33)
[2016-12-30] MEDS ORDERED: LIDOCAINE JELLY 2% 30ml TUBE ONE (09:45)
[2016-12-30] MEDS ORDERED: LIDOCAINE 2% (20mg/ml) 5ml PF SDV ONE (09:51)
[2016-12-30] MEDS ORDERED: FENTANYL 100mcg/2ml INJECTION ONE (10:02)
[2016-12-30] MEDS ORDERED: KETOROLAC 30mg/ml INJECTION ONE (10:11)
[2016-12-30] MEDS ORDERED: IOHEXOL 300 MG/ML 50ml INJECTION ONE (10:14)
--- NOTE | 2016-12-30 11:39 | DI ---
Indication: ITS.REASON: Verify applicator placement and R/O postop complication PROCEDURE: CT PELVIS W/O CONTRAST: Encounter: Subsequent Comparison: December 16, 2016 Technique: Axial noncontrast CT imaging through the pelvis with coronal and sagittal two-dimensional reformats. Automated Exposure Control and Iterative Reconstruction dose reducing techniques were utilized. Findings: Tandem and ovoid device appears appropriately positioned with the tandem extending through the endometrial canal. No evidence of uterine perforation. Qusipe catheter is present within the contrast filled bladder. Body habitus creates significant attenuation artifact. Bony structures are unremarkable. Impression: Radiation therapy treatment device in place without evidence of immediate complication. .
--- NOTE | 2016-12-30 13:48 | ANESPO ---
Post-Op Note Date 12/30/16 Time: 10:30 Status Pt Participated in Evaluation: Pt participated in person Vital Signs Date Time Temp Pulse Resp B/P Pulse Ox O2 Delivery O2 Flow Rate FiO2 12/30/16 11:05 78 19 126/61 96 4.00 12/30/16 10:35 Mask 12/30/16 10:32 97.8 Respiratory Function: Airway patent, Regular respirations Cardiovascular Function: Regular pulse Telemetry Pattern: SR Mental Status: Alert/oriented Pain Level Intensity: 0 Hydration: IV infusing Complications during Recovery None apparent Follow-Up Instructions Instructions Per Surgeon SHANELL HOFFMANN CRNA December 30, 2016 13:48
--- NOTE | 2016-12-30 17:18 | GSDISC ---
General Date Date DATE: 12/30/16 TIME: 17:10 Attending Physician Trinity Frausto MD Admitting Physician Trinity Frausto MD Consulting Physician Discharge Diagnosis: (1) Cervical carcinoma Laboratory Laboratory Laboratory Tests Test 12/30/16 08:35 12/30/16 08:36 White Blood Count 7.0T/MM3 Red Blood Count 3.01M/MM3 Hemoglobin 9.5GM/DL Hematocrit 30.1% Mean Corpuscular Volume 100.0UM3 Mean Corpuscular Hemoglobin 31.6UUG Mean Corpuscular Hemoglobin Concent 31.6GM/DL RDW Standard Deviation 91.4FL Platelet Count 181T/MM3 Mean Platelet Volume 9.2UM3 Immature Granulocyte % (Auto) 1.4% Neutrophils (%) (Auto) 79.8% Lymphocytes (%) (Auto) 9.4% Monocytes (%) (Auto) 6.3% Eosinophils (%) (Auto) 2.7% Basophils (%) (Auto) 0.4% Absolute Immature Granulocyte (auto 0.10T/MM3 Absolute Neutrophils (auto) 5.6T/MM3 Absolute Lymphocytes (auto) 0.7T/MM3 Absolute Monocytes (auto) 0.4T/MM3 Absolute Eosinophils (auto) 0.2T/MM3 Absolute Basophils (auto) 0.0T/MM3 Turbidity < 20 Sodium Level 147MEQ/L Potassium Level 5.0MEQ/L Chloride Level 106MEQ/L Carbon Dioxide Level 27MEQ/L Anion Gap 14MEQ/L Blood Urea Nitrogen 13.0MG/DL Creatinine 0.9MG/DL Glomerular Filtration Rate Calc 67 BUN/Creatinine Ratio 14RATIO Glucose Level 151MG/DL Calculated Osmolality 285MOSM/KG Calcium Level 9.4MG/DL Icterus Index < 2 Human Chorionic Gonadotropin, Qual Negative Chemistry Specimen Hemolysis < 15 Hospital Course Patient seen preoperatively with review of risks and side effects completed. Patient prepped and draped in standard fashion. Shahid placed with Hypaque in balloon. Exam under anesthesia showed loss of cervical sleeve, however, response has been excellent and Os was patent. No dilatation necessary. Tandem was inserted without difficulties. Her anatomy is consistently unfavorable with cervix facing ventrally in the vagina without any fornices. The vagina ended in a cul-de-sac where the ovoids were placed. Two separate packs were used to separate bladder and rectum. Because of her perineal circumference, the shahid was difficult to place and had significant tethering, lowering the shahid and straining it against trigone. Despite all manipulations , other geometric positions could not be reached. Patient had smoked in excess which made the anesthetic sedation difficult, especially since the patient has asthma, sleep apnea, and other chronic illnesses. She was taken to the recovery room in good condition. Home Meds Reported Medications Hydrocodone/Acetaminophen ([place] 10-325 Tablet) 10-325 Tablet, 1 TAB PO Q4-6HPRN , TAB 12/30/16 Lorazepam (Lorazepam) 1 Mg Tablet, 1 TAB PO TID Y for PRN ORDERS, TAB 12/16/16 Prochlorperazine Maleate (Prochlorperazine Maleate) 10 Mg Tablet, 10 MG PO QID for NAUSEA, TAB Take 1 tablet, by mouth, 4 times a day. 12/09/16 Ondansetron HCl (Ondansetron HCl) 8 Mg Tablet, PO for NAUSEA &/OR VOMITING 12/09/16 Metoprolol Succinate (Metoprolol Succinate) 50 Mg Tab.er.24h, 1 TAB PO DAILY, # 30 11/22/16 Bupropion HCl (Bupropion HCl Sr) 150 Mg Tablet.er, 1 TAB PO BID, #60 11/22/16 Furosemide (Furosemide) 20 Mg Tablet, 1 TAB PO DAILY, #30 11/22/16 Dulaglutide (Trulicity) 1.5 Mg/0.5 Ml Pen.injctr, #2 11/22/16 Carbamazepine (Tegretol) 200 Mg Tablet, 1 TAB PO BID 11/22/16 Omeprazole (Omeprazole) 40 Mg Capsule.dr, 1 CAP PO BID, #60 11/22/16 Metformin HCl (Metformin HCl) 1,000 Mg Tablet, 1 TAB PO BID, #60 11/22/16 Lisinopril (Lisinopril) 10 Mg Tablet, 1 TAB PO DAILY, #30 11/22/16 Levothyroxine Sodium (Levothyroxine Sodium) 25 Mcg Tablet, 1 TAB PO DAILY, #30 11/22/16 Insulin Glargine,Hum.rec.anlog (Lantus Solostar) 1 Unit Pen, #15 11/22/16 Gabapentin (Gabapentin) 100 Mg Capsule, 1 CAP PO TID, #90 11/22/16 Discharge Disposition Dismissed to recovery in good condition. TRINITY FRAUSTO MD December 30, 2016 17:17
== END 2016-12-30 11:25 | disposition home or self-care (01) ==
LOC: SCU 08:06
PROVIDERS: ATTEND Radiology Radiation Oncology
DX: C53.0 Malignant neoplasm of endocervix (principal); F17.210 Nicotine dependence, cigarettes, uncomplicated; J45.909 Unspecified asthma, uncomplicated; G47.30 Sleep apnea, unspecified; K62.3 Rectal prolapse; N81.6 Rectocele; K64.8 Other hemorrhoids; K64.4 Residual hemorrhoidal skin tags; D64.81 Anemia due to antineoplastic chemotherapy; D69.59 Other secondary thrombocytopenia; D70.2 Other drug-induced agranulocytosis; G62.0 Drug-induced polyneuropathy; E11.42 Type 2 diabetes mellitus with diabetic polyneuropathy; H91.03 Ototoxic hearing loss, bilateral; T45.1X5A Adverse effect of antineoplastic and immunosuppressive drugs, initial encounter; F41.9 Anxiety disorder, unspecified; G89.29 Other chronic pain; M54.5 Low back pain; Z68.43 Body mass index [BMI] 50.0-59.9, adult; Z79.4 Long term (current) use of insulin; Z79.84 Long term (current) use of oral hypoglycemic drugs; Z79.899 Other long term (current) drug therapy
CPT/HCPCS: 57155; 72192; 80048; 84703; 85025; J0330; J1100; J1885; J2250; J2405; J3010; Q9967